=== PATIENT | female | born 1965 | race American Indian/Alaskan Native ===

== ENCOUNTER 2022-01-22 17:33 | Inpatient (IN) | payer SELFPAY ==
[2022-01-22] MEDS ORDERED: LORazepam 2 MG/ML VIAL ONE (18:16)
[2022-01-22] MEDS ORDERED: LORazepam 2 MG/ML VIAL IV ONE (18:47)
[2022-01-22] MEDS ORDERED: levETIRAcetam 1000 MG/NS 0.75% 1,000 MG/100 ML BAG IV ONE ×2 (18:55→20:57)
--- NOTE | 2022-01-22 19:43 | XRay Report ---
Chest single view INDICATION: Dyspnea IMPRESSION: Borderline cardiomegaly with patchy perihilar airspace opacity possibly related to early interstitial edema. Signer Name: Sourav Issa MD Signed: 01/22/2022 7:39 PM Workstation Name: [id number]
--- NOTE | 2022-01-22 19:44 | Cat Scan Report ---
CT HEAD WITHOUT CONTRAST INDICATION / CLINICAL INFORMATION: ams, new onset seizure. TECHNIQUE: All CT scans at this location are performed using CT dose reduction for ALARA by means of automated e xposure control. COMPARISON: None available. FINDINGS: HEMORRHAGE: A small focus of increased attenuation is observed along the posterior margin of the head of caudate nucleus on the right. This could represent calcification or small punctate focus of hemor rhage which measures less than 5 mm in diameter. There is no indication of extra-axial collection. EXTRA-AXIAL SPACES: Cortical sulci and sylvian fissures are mildly enlarged reflecting a degree of pa renchymal volume loss which is greater than expected for the patient's age of 56 years. Basilar ciste rns have an unremarkable appearance. VENTRICULAR SYSTEM: Small compression of the frontal horn of the right lateral ventricle. Ventricles and cortical sulci are otherwise at the upper limit of normal for size given the patient's age of 56 years. CEREBRAL PARENCHYMA: A low-attenuation lesion with hyperdense surround is present located just below head of caudate nucleus on the right. Overall size of the lesion is about 2.0 x 1.3 x 0.9 cm. This is associated with mild compression of the frontal horn of the right lateral ventricle. Considerations include brain neoplasm and abscess. Further evaluation to include MRI brain without and with intraven ous contrast is otherwise. Periventricular and deep white matter lucency is observed. This is probabl y secondary to microvascular ischemic change. There is no indication of recent infarction. No areas o f encephalomalacia are identified. MIDLINE SHIFT OR HERNIATION: There is no mass effect. CEREBELLUM / BRAINSTEM: Brainstem has an unremarkable appearance. Age related cerebellar atrophy is n oted. MIDLINE STRUCTURES:Pituitary gland has an unremarkable appearance. No abnormalities are seen in the p ineal region. INTRACRANIAL VESSELS:Calcified atherosclerotic plaque is present along the course of the cavernous se gments of both internal carotid arteries. Similar findings are seen at the distal vertebral arteries. CRANIOCERVICAL JUNCTION:No significant abnormality. ORBITS: visualized portions of the orbits have an unremarkable appearance. SOFT TISSUES of HEAD: No significant abnormality. CALVARIUM: Evaluation of bone windows reveals no abnormalities. PARANASAL SINUSES / MASTOID AIR CELLS: Paranasal sinuses are free from inflammatory mucosal disease. Mastoid air cells are normally pneumatized. IMPRESSION: 1. A low-attenuation lesion with hyperdense surround is present centered near the head of caudate nuc leus on the right. This produces mild mass effect with compression of the adjacent frontal horn of th e right lateral ventricle. Small amount of increased attenuation material at the posterior inferior m argin of the lesion may represent calcification or small amount of hemorrhage. Considerations include brain neoplasia and abscess. Further evaluation with MRI brain to be performed without and with intr avenous contrast material is advised. Signer Name: Dennys Grossman MD Signed: 01/22/2022 7:40 PM Workstation Name: [id number]
[2022-01-22 19:53] LABS: Basophils # (Auto) 0.1 K/mm3 (0.0-0.1); Basophils % (Auto) 0.7 % (0.0-1.8); Eosinophils # (Auto) 0.1 K/mm3 (0.0-0.4); Eosinophils % (Auto) 0.7 % (0.0-4.3); Hemoglobin 10.4 gm/dl (10.1-14.3); Lymphocytes % (Auto) 9.2 % (13.4-35.0); Mean Corpuscular HGB Conc 32 % (30-34); Mean Corpuscular Volume 81 fl (79-97); Monocytes # (Auto) 0.7 K/mm3 (0.0-0.8); Monocytes % (Auto) 6.5 % (0.0-7.3); Platelet Count 420 K/mm3 (140-440); Red Blood Count 4.09 M/mm3 (3.65-5.03); Red Cell Distribution Width 15.4 % (13.2-15.2)
[2022-01-22 20:01] LABS: INR 0.84 (0.87-1.13)
[2022-01-22] MEDS ORDERED: INSULIN REGULAR, HUMAN 100 UNITS/1 ML IV ONE (20:01)
[2022-01-22 20:02] LABS: Partial Thromboplastin Time 26.4 Sec. (24.2-36.6)
[2022-01-22 20:05] LABS: Alanine Aminotransferase 14 units/L (7-56); Albumin 3.1 g/dL (3.9-5); BUN/Creatinine Ratio 14; Blood Urea Nitrogen 15 mg/dL (7-17); Calcium 9.3 mg/dL (8.4-10.2); Hemolysis Index 5
[2022-01-22 20:17] LABS: Free T4 (Free Thyroxine) 1.32 ng/dL (0.76-1.46)
--- NOTE | 2022-01-22 20:18 | Emergency Department Report ---
ED Altered Mental Status HPI - General Chief Complaint: Altered Mental Status Stated Complaint: AMS Time Seen by Provider: 01/22/22 18:41 Source: patient, EMS Mode of arrival: Stretcher Limitations: Altered Mental Status, Physical Limitation - History of Present Illness Initial Comments: 56-year old female the past medical history of hypertension and diabetes presents to the hospital alteration mental status. Patient has a recent history of a left arm fracture. She has been assisted to the bathroom by her daughter when she became altered. EMS reports that patient was alert but confused. After ED arrival she had a witnessed seizure by staff and received Ativan 2 mg IV prior to my evaluation. At time of my evaluation she was drowsy and postict al but moves all extremities equally with sensation grossly intact. Accu-Chek high as per EMS. Stat CT head and labs requested. no previous medical record available for review. LEONARD MELTON [phone] DAUGTHER - Related Data Home Medications Medication Instructions Recorded Confirmed Last Taken amLODIPine 5 mg PO DAILY 01/23/22 01/23/22 01/22/22 metFORMIN [Glucophage] 500 mg PO BID 01/23/22 01/23/22 01/22/22 Allergies Allergy/AdvReac Type Severity Reaction Status Date / Time No Known Allergies Allergy Verified 01/22/22 17:47 ED Review of Systems ROS: Stated complaint: AMS Other details as noted in HPI ED Past Medical Hx - Medications Home Medications: Home Medications Medication Instructions Recorded Confirmed Last Taken Type amLODIPine 5 mg PO DAILY 01/23/22 01/23/22 01/22/22 History metFORMIN [Glucophage] 500 mg PO BID 01/23/22 01/23/22 01/22/22 History ED Physical Exam - General Limitations: Altered Mental Status, Physical Limitation - Other Other exam information: General: Lethargic Head: Atraumatic Eyes: Pupils equal reactive to ENT: Moist mucous membranes Neck: Normal appearance, no midline tenderness Chest: Clear to auscultation bilaterally CV: Regular rate and rhythm Abdomen: Soft, normal bowel sounds, nontender, nondistended, no rebound or g uarding Back: Normal inspection Extremity: Normal inspection, full range of motion Neuro: Lethargic, no facial asymmetry, sensation grossly intact with localization of pain Psych: Postictal received Ativan Skin: No rash ED Course Vital Signs 01/22/22 01/22/22 01/22/22 17:33 19:30 19:46 Temperature 97.9 F Pulse Rate 120 H 107 H 105 H Respiratory 18 15 19 Rate Blood Pressure 148/79 Blood Pressure 190/100 187/86 [Right] O2 Sat by Pulse 98 95 87 Oximetry 01/22/22 01/22/22 01/22/22 20:00 20:16 20:30 Temperature Pulse Rate 98 H 93 H 91 H Respiratory 22 22 21 Rate Blood Pressure 148/79 135/71 135/71 Blood Pressure [Right] O2 Sat by Pulse 90 93 94 Oximetry 01/22/22 01/22/22 01/22/22 20:46 20:50 21:00 Temperature 96.4 F L Pulse Rate 108 H 111 H Respiratory 14 22 Rate Blood Pressure 107/65 159/91 Blood Pressure [Right] O2 Sat by Pulse 98 97 Oximetry 01/22/22 01/22/22 01/22/22 22:02 22:16 22:30 Temperature Pulse Rate Respiratory Rate Blood Pressure 184/104 184/104 175/97 Blood Pressure [Right] O2 Sat by Pulse 96 96 98 Oximetry 01/22/22 01/22/22 01/22/22 22:46 23:00 23:16 Temperature Pulse Rate Respiratory Rate Blood Pressure 173/92 172/83 171/84 Blood Pressure [Right] O2 Sat by Pulse 100 97 99 Oximetry 01/22/22 01/23/22 01/23/22 23:30 00:16 00:30 Temperature Pulse Rate 94 H 88 Respiratory 18 18 Rate Blood Pressure 167/80 162/86 162/86 Blood Pressure [Right] O2 Sat by Pulse 96 97 Oximetry 01/23/22 01/23/22 01/23/22 00:46 01:00 01:16 Temperature Pulse Rate 84 85 97 H Respiratory 18 18 21 Rate Blood Pressure 137/74 137/74 153/78 Blood Pressure [Right] O2 Sat by Pulse 96 96 100 Oximetry 01/23/22 01/23/22 01/23/22 01:30 01:46 02:00 Temperature Pulse Rate 103 H 99 H 103 H Respiratory 16 13 15 Rate Blood Pressure 168/109 168/109 168/109 Blood Pressure [Right] O2 Sat by Pulse 99 98 99 Oximetry - Reevaluation(s) Reevaluation #1: 01/22/22 21:55 called daughter no response 01/22/22 22:00 Patient reexamined. She is drowsy, eyes closed, low-volume while communicating and somewhat difficult to understand. Equal handgrip and foot dorsiflexion. Oriented to self. Does not know how she got to the ED. States the year is 1964. Complains of pain to her left arm (x-rays ordered) - Consultations Consultation #1: 01/22/22 20:[address] Dumont neurosurgery who advises to transfer patient based on CT report Between 21:11 and 20:11 the following facilities were called [facility], [place],[facility], and [facility] and all of these hospitals were at capacity and able to accept the patient Case we discussed with Dr. Dumont and he reviewed the CAT scan imaging himself. Suspect that findings could be likely secondary to a stroke. Advises to admit patient here, he will consult, recommends neurology consult and MRI in the morning 01/22/22 22:47 Case discussed with neurology Dr. Cabrera (teleneurology) who does not recommend Decadron at this time due to minimal edema seen on CT scan. Recommends to continue Keppra 750 mg twice daily and MRI to further differentiate lesion - Lab Data Result diagrams: 01/24/22 04:36 01/24/22 04:36 Lab Results 01/22/22 01/22/22 01/22/22 Range/Units 19:28 19:28 19:28 WBC 10.6 (4.5-11.0) K/mm3 RBC 4.09 (3.65-5.03) M/mm3 Hgb 10.4 (10.1-14.3) gm/dl Hct 33.0 (30.3-42.9) % MCV 81 (79-97) fl MCH 25 L (28-32) pg MCHC 32 (30-34) % RDW 15.4 H (13.2-15.2) % Plt Count 420 (140-440) K/mm3 Lymph % (Auto) 9.2 L (13.4-35.0) % Falls % (Auto) 6.5 (0.0-7.3) % Eos % (Auto) 0.7 (0.0-4.3) % Baso % (Auto) 0.7 (0.0-1.8) % Lymph # (Auto) 1.0 L (1.2-5.4) K/mm3 Falls # (Auto) 0.7 (0.0-0.8) K/mm3 Eos # (Auto) 0.1 (0.0-0.4) K/mm3 Baso # (Auto) 0.1 (0.0-0.1) K/mm3 Seg Neutrophils % 82.9 H (40.0-70.0) % Seg Neutrophils # 8.8 H (1.8-7.7) K/mm3 PT (12.2-14.9) Sec. INR (0.87-1.13) APTT (24.2-36.6) Sec. VBG pH (7.320-7.420) Sodium 131 L (137-145) mmol/L Potassium 4.6 (3.6-5.0) mmol/L Chloride 91.8 L (98-107) mmol/L Carbon Dioxide 29 (22-30) mmol/L Anion Gap 15 mmol/L BUN 15 (7-17) mg/dL Creatinine 1.1 (0.6-1.2) mg/dL Estimated GFR > 60 ml/min BUN/Creatinine Ratio 14 % Glucose 581 H* (65-100) mg/dL POC Glucose (70-105) mg/dL Calcium 9.3 (8.4-10.2) mg/dL Magnesium 1.40 L (1.7-2.3) mg/dL Total Bilirubin 0.30 (0.1-1.2) mg/dL AST 15 (5-40) units/L ALT 14 (7-56) units/L Alkaline Phosphatase 197 H (35-129) units/L Ammonia 17.0 L (25-60) umol/L Total Creatine Kinase (30-135) units/L CK-MB (CK-2) (0.0-4.0) ng/mL CK-MB (CK-2) Rel Index (0-4) Troponin T (0.00-0.029) ng/mL Total Protein 7.4 (6.3-8.2) g/dL Albumin 3.1 L (3.9-5) g/dL Albumin/Globulin Ratio 0.7 % TSH (0.270-4.200) mlU/mL Free T4 (0.76-1.46) ng/dL Salicylates (2.8-20.0) mg/dL Plasma/Serum Alcohol (0-0.07) % Blood Type Antibody Screen 01/22/22 01/22/22 01/22/22 Range/Units 19:28 19:28 19:28 WBC (4.5-11.0) K/mm3 RBC (3.65-5.03) M/mm3 Hgb (10.1-14.3) gm/dl Hct (30.3-42.9) % MCV (79-97) fl MCH (28-32) pg MCHC (30-34) % RDW (13.2-15.2) % Plt Count (140-440) K/mm3 Lymph % (Auto) (13.4-35.0) % Falls % (Auto) (0.0-7.3) % Eos % (Auto) (0.0-4.3) % Baso % (Auto) (0.0-1.8) % Lymph # (Auto) (1.2-5.4) K/mm3 Falls # (Auto) (0.0-0.8) K/mm3 Eos # (Auto) (0.0-0.4) K/mm3 Baso # (Auto) (0.0-0.1) K/mm3 Seg Neutrophils % (40.0-70.0) % Seg Neutrophils # (1.8-7.7) K/mm3 PT (12.2-14.9) Sec. INR (0.87-1.13) APTT (24.2-36.6) Sec. VBG pH (7.320-7.420) Sodium (137-145) mmol/L Potassium (3.6-5.0) mmol/L Chloride (98-107) mmol/L Carbon Dioxide (22-30) mmol/L Anion Gap mmol/L BUN (7-17) mg/dL Creatinine (0.6-1.2) mg/dL Estimated GFR ml/min BUN/Creatinine Ratio % Glucose (65-100) mg/dL POC Glucose (70-105) mg/dL Calcium (8.4-10.2) mg/dL Magnesium (1.7-2.3) mg/dL Total Bilirubin (0.1-1.2) mg/dL AST (5-40) units/L ALT (7-56) units/L Alkaline Phosphatase (35-129) units/L Ammonia (25-60) umol/L Total Creatine Kinase (30-135) units/L CK-MB (CK-2) (0.0-4.0) ng/mL CK-MB (CK-2) Rel Index (0-4) Troponin T (0.00-0.029) ng/mL Total Protein (6.3-8.2) g/dL Albumin (3.9-5) g/dL Albumin/Globulin Ratio % TSH 1.460 (0.270-4.200) mlU/mL Free T4 1.32 (0.76-1.46) ng/dL Salicylates < 0.3 L (2.8-20.0) mg/dL Plasma/Serum Alcohol < 0.01 (0-0.07) % Blood Type Antibody Screen 01/22/22 01/22/22 01/22/22 Range/Units 19:28 19:28 19:28 WBC (4.5-11.0) K/mm3 RBC (3.65-5.03) M/mm3 Hgb (10.1-14.3) gm/dl Hct (30.3-42.9) % MCV (79-97) fl MCH (28-32) pg MCHC (30-34) % RDW (13.2-15.2) % Plt Count (140-440) K/mm3 Lymph % (Auto) (13.4-35.0) % Falls % (Auto) (0.0-7.3) % Eos % (Auto) (0.0-4.3) % Baso % (Auto) (0.0-1.8) % Lymph # (Auto) (1.2-5.4) K/mm3 Falls # (Auto) (0.0-0.8) K/mm3 Eos # (Auto) (0.0-0.4) K/mm3 Baso # (Auto) (0.0-0.1) K/mm3 Seg Neutrophils % (40.0-70.0) % Seg Neutrophils # (1.8-7.7) K/mm3 PT 12.4 (12.2-14.9) Sec. INR 0.84 L (0.87-1.13) APTT 26.4 (24.2-36.6) Sec. VBG pH 7.398 (7.320-7.420) Sodium (137-145) mmol/L Potassium (3.6-5.0) mmol/L Chloride (98-107) mmol/L Carbon Dioxide (22-30) mmol/L Anion Gap mmol/L BUN (7-17) mg/dL Creatinine (0.6-1.2) mg/dL Estimated GFR ml/min BUN/Creatinine Ratio % Glucose (65-100) mg/dL POC Glucose (70-105) mg/dL Calcium (8.4-10.2) mg/dL Magnesium (1.7-2.3) mg/dL Total Bilirubin (0.1-1.2) mg/dL AST (5-40) units/L ALT (7-56) units/L Alkaline Phosphatase (35-129) units/L Ammonia (25-60) umol/L Total Creatine Kinase (30-135) units/L CK-MB (CK-2) (0.0-4.0) ng/mL CK-MB (CK-2) Rel Index (0-4) Troponin T (0.00-0.029) ng/mL Total Protein (6.3-8.2) g/dL Albumin (3.9-5) g/dL Albumin/Globulin Ratio % TSH (0.270-4.200) mlU/mL Free T4 (0.76-1.46) ng/dL Salicylates (2.8-20.0) mg/dL Plasma/Serum Alcohol (0-0.07) % Blood Type O POSITIVE Antibody Screen Negative 01/22/22 01/22/22 Range/Units 19:28 19:59 WBC (4.5-11.0) K/mm3 RBC (3.65-5.03) M/mm3 Hgb (10.1-14.3) gm/dl Hct (30.3-42.9) % MCV (79-97) fl MCH (28-32) pg MCHC (30-34) % RDW (13.2-15.2) % Plt Count (140-440) K/mm3 Lymph % (Auto) (13.4-35.0) % Falls % (Auto) (0.0-7.3) % Eos % (Auto) (0.0-4.3) % Baso % (Auto) (0.0-1.8) % Lymph # (Auto) (1.2-5.4) K/mm3 Falls # (Auto) (0.0-0.8) K/mm3 Eos # (Auto) (0.0-0.4) K/mm3 Baso # (Auto) (0.0-0.1) K/mm3 Seg Neutrophils % (40.0-70.0) % Seg Neutrophils # (1.8-7.7) K/mm3 PT (12.2-14.9) Sec. INR (0.87-1.13) APTT (24.2-36.6) Sec. VBG pH (7.320-7.420) Sodium (137-145) mmol/L Potassium (3.6-5.0) mmol/L Chloride (98-107) mmol/L Carbon Dioxide (22-30) mmol/L Anion Gap mmol/L BUN (7-17) mg/dL Creatinine (0.6-1.2) mg/dL Estimated GFR ml/min BUN/Creatinine Ratio % Glucose (65-100) mg/dL POC Glucose 466 H (70-105) mg/dL Calcium (8.4-10.2) mg/dL Magnesium (1.7-2.3) mg/dL Total Bilirubin (0.1-1.2) mg/dL AST (5-40) units/L ALT (7-56) units/L Alkaline Phosphatase (35-129) units/L Ammonia (25-60) umol/L Total Creatine Kinase 109 (30-135) units/L CK-MB (CK-2) 4.9 H (0.0-4.0) ng/mL CK-MB (CK-2) Rel Index 4.4 H (0-4) Troponin T 0.020 (0.00-0.029) ng/mL Total Protein (6.3-8.2) g/dL Albumin (3.9-5) g/dL Albumin/Globulin Ratio % TSH (0.270-4.200) mlU/mL Free T4 (0.76-1.46) ng/dL Salicylates (2.8-20.0) mg/dL Plasma/Serum Alcohol (0-0.07) % Blood Type Antibody Screen - EKG Data -: EKG Interpreted by Me EKG shows normal: sinus rhythm, ST-T waves Rate: normal - Radiology Data Radiology results: report reviewed CT HEAD WITHOUT CONTRAST INDICATION / CLINICAL INFORMATION: ams, new onset seizure. TECHNIQUE: All CT scans at this location are performed using CT dose reduction for ALARA by means of automated exposure control. COMPARISON: None available. FINDINGS: HEMORRHAGE: A small focus of increased attenuation is observed along the posterior margin of the head of caudate nucleus on the right. This could represent calcification or small punctate focus of hemorrhage which measures less than 5 mm in diameter. There is no indication of extra-axial collection. EXTRA-AXIAL SPACES: Cortical sulci and sylvian fissures are mildly enlarged ref lecting a degree of parenchymal volume loss which is greater than expected for the patient's age of 56 years. Basilar cisterns have an unremarkable appearance. VENTRICULAR SYSTEM: Small compression of the frontal horn of the right lateral ventricle. Ventricles and cortical sulci are otherwise at the upper limit of normal for size given the patient's age of 56 years. CEREBRAL PARENCHYMA: A low-attenuation lesion with hyperdense surround is present located just below head of caudate nucleus on the right. Overall size of the lesion is about 2.0 x 1.3 x 0.9 cm. This is associated with mild compression of the frontal horn of the right lateral ventricle. Considerations include brain neoplasm and abscess. Further evaluation to include MRI brain without and with intravenous contrast is otherwise. Periventricular and deep white matter lucency is observed. This is probably secondary to microvascular ischemic change. There is no indication of recent infarction. No areas of encephalomalacia are identified. MIDLINE SHIFT OR HERNIATION: There is no mass effect. CEREBELLUM / BRAINSTEM: Brainstem has an unremarkable appearance. Age related cerebellar atrophy is noted. MIDLINE STRUCTURES:Pituitary gland has an unremarkable appearance. No abnormalities are seen in the pineal region. INTRACRANIAL VESSELS:Calcified atherosclerotic plaque is present along the course of the cavernous segments of both internal carotid arteries. Similar findings are seen at the distal vertebral arteries. CRANIOCERVICAL JUNCTION:No significant abnormality. ORBITS: visualized portions of the orbits have an unremarkable appearance. SOFT TISSUES of HEAD: No significant abnormality. CALVARIUM: Evaluation of bone windows reveals no abnormalities. PARANASAL SINUSES / MASTOID AIR CELLS: Paranasal sinuses are free from inflammatory mucosal disease. Mastoid air cells are normally pneumatized. IMPRESSION: 1. A low-attenuation lesion with hyperdense surround is present centered near the head of caudate nucleus on the right. This produces mild mass effect with compression of the adjacent frontal horn of the right lateral ventricle. Small amount of increased attenuation material at the posterior inferior margin of the lesion may represent calcification or small amount of hemorrhage. Considerations include brain neoplasia and abscess. Further evaluation with MRI brain to be performed without and with intravenous contrast material is advised. Chest single view INDICATION: Dyspnea IMPRESSION: Borderline cardiomegaly with patchy perihilar airspace opacity possibly related to early interstitial edema. - Medical Decision Making 56-year-old female with alteration mental status and was a seizure who has a newly diagnosed brain lesion with findings as noted by CAT scan report. Case discussed with neurosurgery who recommends MRI and neurology consult. Patient also treated with seizure medication. Case also discussed with teleneurology who recommends to continue Keppra 750 mg twice daily. Decadron is not recommended at this time due to very minimal edema noted on CT scan. patient has hyperglycemia without signs of DKA was treated with IV insulin and normal saline. X-ray reveals a left proximal humerus fracture. Sling provide Critical Care Time: Yes Critical care time in (mins) excluding proc time.: 40 Critical care attestation.: If time is entered above; I have spent that time in minutes in the direct care of this critically ill patient, excluding procedure time. Critical Care Time: 40 Minutes of critical care time excluding procedures were used in the care of the patient. I came immediately to the bedside upon patient's arrival. I obtained history from EMS at the bedside. I discussed treatment plan with the nursing team members. I reviewed electronic record. Patient required multiple interventions and reassessments. Multiple consultations with attempted transfer. ED Disposition Clinical Impression: Altered mental status, Brain lesion, New onset seizure, Hyperglycemia due to diabetes mellitus Closed fracture of left proximal humerus Qualifiers: Encounter type: subsequent encounter Disposition: ADMITTED INPATIENT Is pt being admited?: Yes Condition: Stable Time of Disposition: 22:49 (Dr. Ontiveros/hospitalist)
[2022-01-22 20:50] LABS: Creatine Kinase MB 4.9 ng/mL (0.0-4.0)
[2022-01-22] MEDS ORDERED: MAGNESIUM SULFATE 2 GM/50 ML BAG IV ONE (21:21)
--- NOTE | 2022-01-22 22:46 | XRay Report ---
LEFT FOREARM 2 VIEWS INDICATION / CLINICAL INFORMATION: arm pain recent fracture. COMPARISON: None available. FINDINGS: BONES / JOINT(S): Negative for fracture. The ulna is posteriorly displaced. It is uncertain if this i s due to positioning or a real finding. Clinical correlation is recommended. No significant arthritis . SOFT TISSUES: No significant abnormality. ADDITIONAL FINDINGS: None. Signer Name: Mario Jimenez MD Signed: 01/22/2022 10:42 PM Workstation Name: [id number]
--- NOTE | 2022-01-22 22:47 | XRay Report ---
RIGHT HUMERUS 2 VIEWS INDICATION / CLINICAL INFORMATION: arm pain recent fracture. COMPARISON: None available. FINDINGS: BONES / JOINT(S): Mildly comminuted/impacted humeral neck fracture. The mid and distal humerus are in tact. The articular surface of the humeral head and glenoid demonstrate no fracture. SOFT TISSUES: No significant abnormality. ADDITIONAL FINDINGS: None. Signer Name: Mario Jimenez MD Signed: 01/22/2022 10:43 PM Workstation Name: [id number]
--- NOTE | 2022-01-22 22:49 | Consultation ---
History of Present Illness History of present illness: [facility] Consult Note # Demographics Consult Type: General Neurology Patient Location: Emergency Room First Name: Patricia Last Name: John Date of : 1965 Age: 56 Gender: Female Facility: [facility] Time of Initial Page ( Time): 01/22/2022, 22:40 Time of Return Call ( Time): 01/22/2022, 22:40 Phone Only Consult: 56F with DM, recent humerus fracture presented with AMS, noted to have seizure in ED. CT head done, which showed a right caudate nucleus lesion concerning for possible hemorrhage vs mass. Given 2g levetiracetam. Fingerstick 581. Weighs 81kg. Minimal edema surrounding lesion. Would continue levetiracetam 750mg BID, no role for steroids at this time. Admit for MRI brain w/wo contrast and further work-up and management as per in-house neurology and neurosurgery teams. # [employer] Telemedicine: phone only Electronically signed at 01/22/2022 22:48 ( Time) by Rick Schwarz MD Medications and Allergies Allergies Allergy/AdvReac Type Severity Reaction Status Date / Time No Known Allergies Allergy Verified 01/22/22 17:47 Physical Examination - Vital Signs Vital Signs: Vital Signs Pulse Resp BP Pulse Ox 120 H 18 190/100 98 01/22/22 17:33 01/22/22 17:33 01/22/22 17:33 01/22/22 17:33 Results - Laboratory Findings CBC and BMP: 01/22/22 19:28 01/22/22 19:28 Abnormal Lab Findings: Abnormal Labs 01/22/22 01/22/22 01/22/22 19:28 19:28 19:28 MCH 25 L RDW 15.4 H Lymph % (Auto) 9.2 L Lymph # (Auto) 1.0 L Seg Neutrophils % 82.9 H Seg Neutrophils # 8.8 H INR Sodium 131 L Chloride 91.8 L Glucose 581 H* POC Glucose Magnesium 1.40 L Alkaline Phosphatase 197 H Ammonia 17.0 L CK-MB (CK-2) CK-MB (CK-2) Rel Index Albumin 3.1 L Salicylates 01/22/22 01/22/22 01/22/22 19:28 19:28 19:28 MCH RDW Lymph % (Auto) Lymph # (Auto) Seg Neutrophils % Seg Neutrophils # INR 0.84 L Sodium Chloride Glucose POC Glucose Magnesium Alkaline Phosphatase Ammonia CK-MB (CK-2) 4.9 H CK-MB (CK-2) Rel Index 4.4 H Albumin Salicylates < 0.3 L 01/22/22 19:59 MCH RDW Lymph % (Auto) Lymph # (Auto) Seg Neutrophils % Seg Neutrophils # INR Sodium Chloride Glucose POC Glucose 466 H Magnesium Alkaline Phosphatase Ammonia CK-MB (CK-2) CK-MB (CK-2) Rel Index Albumin Salicylates
[2022-01-22] MEDS ORDERED: SODIUM CHLORIDE 0.9% 1000 ML 1,000 ML IV SCH (23:45)
[2022-01-22] MEDS ORDERED: ALBUTEROL 2.5 MG/3 ML NEBU IH PRN (23:54)
[2022-01-22] MEDS ORDERED: DEXTROSE 50% IN WATER (25GM) 50 ML SYRINGE IV PRN (23:56)
--- NOTE | 2022-01-23 00:03 | History and Physical Report ---
History of Present Illness Date of examination: 01/22/22 Date of admission: 01/22/22 Chief complaint: Altered mental status History of present illness: 56-year old female the past medical history of hypertension and diabetes presents to the hospital alteration mental status. Patient has a recent history of a left arm fracture. She has been assisted to the bathroom by her daughter when she became altered. EMS reports that patient was alert but confused. After ED arrival she had a witnessed seizure by staff and received Ativan 2 mg IV prior to my evaluation. At time of my evaluation she was drowsy and postictal but moves all extremities equally with sensation grossly intact. In the emergency room patient glucose is 589. CT scan of the head shows A low- attenuation lesion with hyperdense surround is present centered near the head of caudate nucleus on the right. This produces mild mass effect with compression of the adjacent frontal horn of the right lateral ventricle. Small amount of increased attenuation material at the posterior inferior margin of the lesion may represent calcification or small amount of hemorrhage. Considerations include brain neoplasia and abscess. Further evaluation with MRI brain to be performed without and with intravenous contrast material is advised. 01/22/22 20:[address] Dumont neurosurgery who advises to transfer patient based on CT report Between 21:11 and 20:11 the following facilities were called [facility], [place],[facility], [facility], and [facility] and all of these hospitals were at capacity and able to accept the patient Case we discussed with Dr. Dumont and he reviewed the CAT scan imaging himself. Suspect that findings could be likely secondary to a stroke. Advises to admit patient here, he will consult, recommends neurology consult and MRI in the morning 01/22/22 22:47 Case discussed with neurology Dr. Cabrera ([email or web address]) who does not recommend Decadron at this time due to minimal edema seen on CT scan. Recommends to continue Keppra 750 mg twice daily and MRI to further differentiate lesion Past History Past Medical History: diabetes, hypertension Past Surgical History: Other (Left arm fracture) Social history: no significant social history Family history: hypertension Medications and Allergies Allergies Allergy/AdvReac Type Severity Reaction Status Date / Time No Known Allergies Allergy Verified 01/22/22 17:47 Active Meds: Active Medications Acetaminophen (Acetaminophen 325 Mg Tab) 650 mg PO Q4H PRN PRN Reason: Pain MILD(1-3)/Fever >100.5/VANEGAS Albuterol (Albuterol 2.5 Mg/3 Ml Nebu) 2.5 mg IH Q3HRT PRN PRN Reason: Shortness Of Breath Albuterol/Ipratropium (Ipratropium/Albuterol Sulfate 3 Ml Ampul.Neb) 1 ampul IH Q6HRT FABIO Atorvastatin Calcium (Atorvastatin 40 Mg Tab) 40 mg PO QHS FABIO Dextrose (Dextrose 50% In Water (25gm) 50 Ml Syringe) 50 ml IV Q30MIN PRN; Protocol PRN Reason: Hypoglycemia Famotidine (Famotidine 20 Mg/2 Ml Inj) 20 mg IV BID [facility] Sodium Chloride (Nacl 0.9% 1000 Ml) 1,000 mls @ 100 mls/hr IV DIRECT FABIO Insulin Human Lispro (Insulin Lispro 100 Unit/Ml) 0 unit SUB-Q Q6HR FABIO; Protocol Labetalol HCl (Labetalol 20 Mg/4 Ml Inj) 10 mg IV Q5MIN PRN PRN Reason: to maintain SBP < 180 Morphine Sulfate (Morphine 2 Mg/1 Ml Inj) 2 mg IV Q4H PRN PRN Reason: Pain, Moderate (4-6) Morphine Sulfate (Morphine 4 Mg/1 Ml Inj) 4 mg IV Q4H PRN PRN Reason: Pain , Severe (7-10) Ondansetron HCl (Ondansetron 4 Mg/2 Ml Inj) 4 mg IV Q8H PRN PRN Reason: Nausea And Vomiting Sodium Chloride (Sodium Chloride 0.9% 10 Ml Flush Syringe) 10 ml IV BID FABIO Sodium Chloride (Sodium Chloride 0.9% 10 Ml Flush Syringe) 10 ml IV PRN PRN PRN Reason: LINE FLUSH Sodium Chloride (Sodium Chloride 0.9% 10 Ml Flush Syringe) 10 ml INJ PRN PRN PRN Reason: LINE FLUSH Review of Systems Constitutional: fatigue, weakness, malaise, lethargy, other (Altered mental status) Exam - Constitutional Vitals: Temp Pulse Resp BP Pulse Ox 96.4 F L 107 H 15 187/86 95 01/22/22 20:50 01/22/22 19:30 01/22/22 19:30 01/22/22 19:30 01/22/22 19:30 General appearance: Present: no acute distress, well-nourished - EENT Eyes: Present: PERRL ENT: hearing intact, clear oral mucosa - Neck Neck: Present: supple, normal ROM - Respiratory Respiratory effort: normal Respiratory: bilateral: diminished - Cardiovascular Heart Sounds: Present: S1 & S2. Absent: rub, click - Extremities Extremities: pulses symmetrical, No edema Peripheral Pulses: within normal limits - Abdominal General gastrointestinal: Present: soft, non-tender, non-distended, normal bowel sounds Female genitourinary: Present: normal - Integumentary Integumentary: Present: clear, warm, dry - Musculoskeletal Musculoskeletal: gait normal, strength equal bilaterally - Psychiatric Psychiatric: other (Altered mental status) - Neurologic Neurologic: CNII-XII intact, moves all extremities HEART Score - HEART Score Troponin: Troponin T 0.020 ng/mL (0.00-0.029) 01/22/22 19:28 Results - Labs CBC & Chem 7: 01/22/22 19:28 01/22/22 19:28 Labs: Laboratory Last Values WBC 10.6 K/mm3 (4.5-11.0) 01/22/22 19: RBC 4.09 M/mm3 (3.65-5.03) 01/22/22 19:28 Hgb 10.4 gm/dl (10.1-14.3) 01/22/22 19: Hct 33.0 % (30.3-42.9) 01/22/22 19:28 MCV 81 fl (79-97) 01/22/22 19: MCH 25 pg (28-32) L 01/22/22 19: MCHC 32 % (30-34) 01/22/22 19:28 RDW 15.4 % (13.2-15.2) H 01/22/22 19:28 Plt Count 420 K/mm3 (140-440) 01/22/22 19: Lymph % (Auto) 9.2 % (13.4-35.0) L 01/22/22 19:28 Hanson % (Auto) 6.5 % (0.0-7.3) 01/22/22 19: Eos % (Auto) 0.7 % (0.0-4.3) 01/22/22 19:28 Baso % (Auto) 0.7 % (0.0-1.8) 01/22/22 19:28 Lymph # (Auto) 1.0 K/mm3 (1.2-5.4) L 01/22/22 19:28 Hanson # (Auto) 0.7 K/mm3 (0.0-0.8) 01/22/22 19:28 Eos # (Auto) 0.1 K/mm3 (0.0-0.4) 01/22/22 19:28 Baso # (Auto) 0.1 K/mm3 (0.0-0.1) 01/22/22 19:28 Seg Neutrophils % 82.9 % (40.0-70.0) H 01/22/22 19: Seg Neutrophils # 8.8 K/mm3 (1.8-7.7) H 01/22/22 19:28 PT 12.4 Sec. (12.2-14.9) 01/22/22 19: INR 0.84 (0.87-1.13) L 01/22/22 19:28 APTT 26.4 Sec. (24.2-36.6) 01/22/22 19:28 VBG pH 7.398 (7.320-7.420) 01/22/22 19:28 Sodium 131 mmol/L (137-145) L 01/22/22 19:28 Potassium 4.6 mmol/L (3.6-5.0) 01/22/22 19:28 Chloride 91.8 mmol/L (98-107) L 01/22/22 19:28 Carbon Dioxide 29 mmol/L (22-30) 01/22/22 19:28 Anion Gap 15 mmol/L 01/22/22 19:28 BUN 15 mg/dL (7-17) 01/22/22 19:28 Creatinine 1.1 mg/dL (0.6-1.2) 01/22/22 19:28 Estimated GFR > 60 ml/min 01/22/22 19:28 BUN/Creatinine Ratio 14 % 01/22/22 19:28 Glucose 581 mg/dL (65-100) H* 01/22/22 19:28 POC Glucose 466 mg/dL (70-105) H 01/22/22 19:59 Calcium 9.3 mg/dL (8.4-10.2) 01/22/22 19: Magnesium 1.40 mg/dL (1.7-2.3) L 01/22/22 19: Total Bilirubin 0.30 mg/dL (0.1-1.2) 01/22/22 19: AST 15 units/L (5-40) 01/22/22 19: ALT 14 units/L (7-56) 01/22/22 19: Alkaline Phosphatase 197 units/L (35-129) H 01/22/22 19: Ammonia 17.0 umol/L (25-60) L 01/22/22 19: Total Creatine Kinase 109 units/L (30-135) 01/22/22 19: CK-MB (CK-2) 4.9 ng/mL (0.0-4.0) H 01/22/22 19: CK-MB (CK-2) Rel Index 4.4 (0-4) H 01/22/22: Troponin T 0.020 ng/mL (0.00-0.029) 01/22/22 19: Total Protein 7.4 g/dL (6.3-8.2) 01/22/22: Albumin 3.1 g/dL (3.9-5) L 01/22/22: Albumin/Globulin Ratio 0.7 % 01/22/22: TSH 1.460 mlU/mL (0.270-4.200) 01/22/22: Free T4 1.32 ng/dL (0.76-1.46) 01/22/22: Salicylates < 0.3 mg/dL (2.8-20.0) L 01/22/22: Plasma/Serum Alcohol < 0.01 % (0-0.07) 01/22/22: Blood Type O POSITIVE 01/22/22: Antibody Screen Negative 01/22/22: - Imaging and Cardiology Chest x-ray: report reviewed CT Scan - head: report reviewed Assessment and Plan VTE prophylaxis?: Mechanical Plan of care discussed with patient/family: Yes - Patient Problems (1) Acute metabolic encephalopathy Current Visit: Yes Status: Acute Plan to address problem: Admit the patient to the medical telemetry. Metabolic encephalopathy secondary to hyperglycemia and brain lesion. We will do MRI of the brain and MRA of the brain and neck with and without contrast. We will consult neurosurgery as well as neurology for evaluation. Lipitor 40 mg p.o. daily. Keppra 750 mg IV bid. (2) Brain lesion Current Visit: Yes Status: Acute Plan to address problem: We will do MRI of the brain and MRA of the brain and neck with and without contrast. We will consult neurosurgery as well as neurology for evaluation. Lipitor 40 mg p.o. daily. Keppra 750 mg IV bid. (3) Closed fracture of left proximal humerus Current Visit: Yes Status: Acute Qualifiers: Encounter type: subsequent encounter Plan to address problem: Stable. We will monitor the patient closely outpatient follow-up with orthopedic surgeon (4) Hyperglycemia due to diabetes mellitus Current Visit: Yes Status: Acute Plan to address problem: Accu-Chek every 6 hours with Humalog high-dose coverage. We also consult diabetic education. Recheck BMP in the morning (5) New onset seizure Current Visit: Yes Status: Acute Plan to address problem: We will do MRI of the brain and MRA of the brain and neck with and without contrast. We will consult neurosurgery as well as neurology for evaluation. Lipitor 40 mg p.o. daily. Keppra 750 mg IV bid. (6) DVT prophylaxis Current Visit: Yes Status: Acute Plan to address problem: SCD for DVT prophylaxis. Pepcid 20 mg IV every 12 hours for GI prophylaxis. Patient is a full code
[2022-01-23] MEDS: INSULIN LISPRO 100 UNIT/ML SUB-Q SCH ×4 (00:59→17:44)
[2022-01-23] MEDS ORDERED: IPRATROPIUM/ALBUTEROL SULFATE 3 ML AMPUL.NEB IH SCH (02:00)
[2022-01-23 05:28] LABS: Basophils % (Auto) 0.4 % (0.0-1.8); Eosinophils # (Auto) 0.1 K/mm3 (0.0-0.4); Eosinophils % (Auto) 0.5 % (0.0-4.3); Hematocrit 28.8 % (30.3-42.9); Hemoglobin 9.1 gm/dl (10.1-14.3); Lymphocytes # (Auto) 1.5 K/mm3 (1.2-5.4); Lymphocytes % (Auto) 14.1 % (13.4-35.0); Mean Corpuscular HGB Conc 32 % (30-34); Mean Corpuscular Volume 79 fl (79-97); Monocytes # (Auto) 1.2 K/mm3 (0.0-0.8); Monocytes % (Auto) 10.9 % (0.0-7.3); Platelet Count 377 K/mm3 (140-440); Red Blood Count 3.64 M/mm3 (3.65-5.03)
[2022-01-23 05:43] LABS: BUN/Creatinine Ratio 14; Blood Urea Nitrogen 13 mg/dL (7-17); Calcium 8.6 mg/dL (8.4-10.2); Chol/HDL Ratio 1.85 %; HDL Cholesterol 75 mg/dL (40-59); Hemolysis Index 1; LDL Cholesterol,Direct 68 mg/dL (50-130)
--- NOTE | 2022-01-23 09:18 | Electrocardiograph Report ---
[facility] Test Date: 2022-01-22 Test Time: 20:52:34 Pat Name: SIDDHARTH MELTON Department: Room: A460 1 Gender: F Transferrer: CHELE : 1965 Requested By: NOHEMI MIRANDA Order Number: [id number] Reading MD: Gregory Jordan Measurements Intervals [place] Rate: 111 P: 61 NH: 163 QRS: -25 QRSD: 91 T: 94 QT: 317 QTc: 431 Interpretive Statements Sinus tachycardia LVH with secondary repolarization abnormality No previous ECG available for comparison Electronically Signed On 01-23-2022 9:18:17 EDT by Gregory Jordan
[2022-01-23] MEDS: LORazepam 2 MG/ML VIAL IV PRN (09:58)
[2022-01-23] MEDS: FAMOTIDINE 20 MG/2 ML INJ IV SCH ×2 (11:24→23:44)
--- NOTE | 2022-01-23 13:42 | Progress Note ---
Subjective Date of service: 01/23/22 Interval history: NSGY update: CT head reviewed, demonstrates right caudate lesion causing mild compression of the frontal horn of the right lateral ventricle. Recommend MRI brain with and without contrast for further evaluation. Please start keppra 1000 mg BID for seizure treatment. Please maintain normotension. Further recommendations pending CT review. Please notify if questions/concerns. Objective - Vital Sign Vital Signs - 12hr 01/23/22 01/23/22 01/23/22 01:46 02:00 03:00 Temperature 97.7 F Pulse Rate 99 H 103 H 89 Respiratory 13 15 16 Rate Blood Pressure 168/109 168/109 136/74 Blood Pressure [Right] O2 Sat by Pulse 98 99 100 Oximetry 01/23/22 01/23/22 01/23/22 05:15 05:52 08:21 Temperature 97.2 F L Pulse Rate 98 H Respiratory 18 Rate Blood Pressure 178/85 181/91 Blood Pressure [Right] O2 Sat by Pulse 100 100 98 Oximetry 01/23/22 12:00 Temperature 97.4 F L Pulse Rate 96 H Respiratory 20 Rate Blood Pressure Blood Pressure 179/84 [Right] O2 Sat by Pulse 98 Oximetry - Laboratory Findings CBC and BMP: 01/23/22 04:26 01/23/22 04:26 Abnormal Lab Findings: Abnormal Labs 01/22/22 01/22/22 01/22/22 19:28 19:28 19:28 RBC Hgb Hct MCH 25 L RDW 15.4 H Lymph % (Auto) 9.2 L Isabella % (Auto) Lymph # (Auto) 1.0 L Isabella # (Auto) Seg Neutrophils % 82.9 H Seg Neutrophils # 8.8 H INR Sodium 131 L Chloride 91.8 L Glucose 581 H* POC Glucose Magnesium 1.40 L Alkaline Phosphatase 197 H Ammonia 17.0 L CK-MB (CK-2) CK-MB (CK-2) Rel Index Albumin 3.1 L HDL Cholesterol Salicylates 01/22/22 01/22/22 01/22/22 19:28 19:28 19:28 RBC Hgb Hct MCH RDW Lymph % (Auto) Isabella % (Auto) Lymph # (Auto) Isabella # (Auto) Seg Neutrophils % Seg Neutrophils # INR 0.84 L Sodium Chloride Glucose POC Glucose Magnesium Alkaline Phosphatase Ammonia CK-MB (CK-2) 4.9 H CK-MB (CK-2) Rel Index 4.4 H Albumin HDL Cholesterol Salicylates < 0.3 L 01/22/22 01/23/22 01/23/22 19:59 00:48 04:26 RBC 3.64 L Hgb 9.1 L Hct 28.8 L MCH 25 L RDW Lymph % (Auto) Isabella % (Auto) 10.9 H Lymph # (Auto) Isabella # (Auto) 1.2 H Seg Neutrophils % 74.1 H Seg Neutrophils # 7.9 H INR Sodium Chloride Glucose POC Glucose 466 H 228 H Magnesium Alkaline Phosphatase Ammonia CK-MB (CK-2) CK-MB (CK-2) Rel Index Albumin HDL Cholesterol Salicylates 01/23/22 01/23/22 01/23/22 04:26 05:47 11:55 RBC Hgb Hct MCH RDW Lymph % (Auto) Isabella % (Auto) Lymph # (Auto) Isabella # (Auto) Seg Neutrophils % Seg Neutrophils # INR Sodium 135 L Chloride Glucose 142 H POC Glucose 137 H 178 H Magnesium Alkaline Phosphatase Ammonia CK-MB (CK-2) CK-MB (CK-2) Rel Index Albumin HDL Cholesterol 75 H Salicylates
--- NOTE | 2022-01-23 14:08 | Magnetic Resonance Report ---
MR brain wo con INDICATION / CLINICAL INFORMATION: 56 years Female; Concern for stroke- possible hemorrhagic THIS IS 3RD ATTEMPT, PATIENT UNCOOPERATIVE, ATTIVAN PRIOR TO MRI, CONTINUED TO MOVE AND REFUSED TO COMPLETE EXAM, BEST POSSIBLE EXAM, PATIENT MO TION.. TECHNIQUE: Multiplanar, multisequence MR images of the brain were obtained. COMPARISON: The study is compared to the earlier CT had of 01/22/2022. FINDINGS: BRAIN / INTRACRANIAL CONTENTS: The motion significantly degrades the image quality and the patient wa s unable to complete the exam. However, the findings a correlate with the earlier CT demonstrating a lesion centered within the head of the right caudate measure approximately 1.3 cm in greatest AP dime nsion. This finding demonstrates restricted diffusion and would appear most consistent with acute/sub acute infarct at. There appears be a component of peripheral increased T1-weighted signal indicative of laminar necrosis which also correlates with the CT and compatible more subacute process. There otherwise appears to be mild to moderate cerebral white matter disease most consistent with doe rovascular angiopathy. The diffusion imaging reveals no further clear evidence of recent infarction. CRANIOCERVICAL JUNCTION: No significant abnormality. ORBITS: The orbits are obscured by the degree of motion artifact at. SINUSES / MASTOIDS: The paranasal sinuses appear pneumatized. ADDITIONAL FINDINGS: None. IMPRESSION: 1. The study is limited by motion. However, the constellation of MRI and CT findings appear most cons istent with subacute infarct involving the right caudate as detailed above. Complete MRI of the brain would be recommended once the patient is able to tolerate. Signer Name: Kris Do MD Signed: 01/23/2022 2:03 PM Workstation Name: [id number]
--- NOTE | 2022-01-23 14:23 | Progress Note ---
Assessment and Plan Assessment and plan: #Acute metabolic encephalopathy #Acute ischemic CVA #New onset seizure #Brain lesion CT head noncontrast revealing "a low attenuation lesion with hyperdensity around his present centered near the head of caudate nucleus on the right. This produces mild mass-effect with compression of the adjacent frontal horn of the right lateral ventricle. Small amount of increased attenuation matter at the posterior inferior margin of the lesion may represent calcification or small amount of hemorrhage. Considerations include brain neoplasia and abscess. Further evaluation with MRI brain to be performed without and with intravenous contrast material is advised." MRI brain without contrast "findings correlate with earlier CT demonstrating a lesion centered within the head of the right caudate measuring approximately 1.3 cm in the greatest AP dimension. This finding demonstrates restricted diffusion and would appear most consistent with acute/subacute infarct. There appears to be a component of peripheral increased T1 weighted signal indication of laminar necrosis which also correlates with the CT incompatible more subacute process." Pending MRI brain with contrast; multiple attempts were made on 01/23/2022. Patient remained agitated and would not allow completion of the full exam/image. Neurology consulted pending recs Neurosurgery consulted; appreciate recs Continue IV Keppra 1000 mg every 12 hours Physical therapy and Occupational Therapy consulted; pending recs Holding on aspirin and Plavix due to concerns for hemorrhagic evolution. Will defer to neurology. Continue to monitor #Closed fracture of left proximal humerus Continue to closely monitor as patient can follow-up with orthopedic surgery in outpatient setting. #Non-insulin dependent type II diabetes mellitus with hyperglycemia - hemoglobin A1c: Unknown - home regimen: Metformin 500 mg twice daily - current regimen: Moderate SSI - blood glucose goal 140-180 while inpatient - continue to monitor #Normocytic anemia Hemoglobin 9.1 Pending iron panel + ferritin Transfuse if hemoglobin <7 or patient becomes symptomatic. #Mild protein caloric malnutrition Albumin 3.1 We will start dietary supplementation when patient becomes more alert. #Obesity #Weight loss counseling #Exercise counseling - BMI 33.2 - Counseled patient on the importance of weight loss, incorporating exercise, and dietary changes (lean meats, fresh fruits and vegetables, and water intake). Patient expresses understanding. - Time: +15 min #Advanced care planning -Disease education conducted, care plan discussed, diagnoses discussed, prognosis discussed, and patient acknowledges understanding with care plan -Time: +30 min Disposition Plan: Continue medical management Total Time Spent with Patient (Minutes): 45 minutes History Interval history: Patient remained extremely agitated and slightly combative during the night, and this continued despite multiple administrations of IV Ativan. Hospitalist Physical - Constitutional Vitals: Temp Pulse Resp BP Pulse Ox 97.4 F L 96 H 20 179/84 98 01/23/22 12:00 01/23/22 12:00 01/23/22 12:00 01/23/22 12:00 01/23/22 12:00 General appearance: Present: no acute distress, well-nourished, obese - EENT Eyes: Present: PERRL, EOM intact ENT: hearing intact, clear oral mucosa, dentition normal - Neck Neck: Present: supple, normal ROM - Respiratory Respiratory effort: normal Respiratory: bilateral: CTA - Cardiovascular Rhythm: regular Heart Sounds: Present: S1 & S2 - Extremities Extremities: no ischemia, pulses intact, pulses symmetrical, No edema, normal temperature, normal color Peripheral Pulses: within normal limits - Abdominal General gastrointestinal: soft, non-tender, non-distended, normal bowel sounds - Integumentary Integumentary: Present: clear, warm, dry - Psychiatric Psychiatric: agitated, other (Disoriented and agitated; difficult to calm down) - Neurologic Neurologic: CNII-XII intact, moves all extremities, other (Alert and oriented x2) - Allied Health Allied health notes reviewed: nursing HEART Score - HEART Score Troponin: Troponin T 0.020 ng/mL (0.00-0.029) 01/22/22 19:28 Results - Labs CBC & Chem 7: 01/23/22 04:26 01/23/22 04:26 Labs: Laboratory Last Values WBC 10.7 K/mm3 (4.5-11.0) 01/23/22 04:26 RBC 3.64 M/mm3 (3.65-5.03) L 01/23/22 04:26 Hgb 9.1 gm/dl (10.1-14.3) L 01/23/22 04:26 Hct 28.8 % (30.3-42.9) L 01/23/22 04:26 MCV 79 fl (79-97) 01/23/22 04:26 MCH 25 pg (28-32) L 01/23/22 04:26 MCHC 32 % (30-34) 01/23/22 04:26 RDW 15.0 % (13.2-15.2) 01/23/22 04:26 Plt Count 377 K/mm3 (140-440) 01/23/22 04:26 Lymph % (Auto) 14.1 % (13.4-35.0) 01/23/22 04:26 Greenlee % (Auto) 10.9 % (0.0-7.3) H 01/23/22 04:26 Eos % (Auto) 0.5 % (0.0-4.3) 01/23/22 04:26 Baso % (Auto) 0.4 % (0.0-1.8) 01/23/22 04:26 Lymph # (Auto) 1.5 K/mm3 (1.2-5.4) 01/23/22 04:26 Greenlee # (Auto) 1.2 K/mm3 (0.0-0.8) H 01/23/22 04:26 Eos # (Auto) 0.1 K/mm3 (0.0-0.4) 01/23/22 04:26 Baso # (Auto) 0.0 K/mm3 (0.0-0.1) 01/23/22 04:26 Seg Neutrophils % 74.1 % (40.0-70.0) H 01/23/22 04:26 Seg Neutrophils # 7.9 K/mm3 (1.8-7.7) H 01/23/22 04:26 PT 12.4 Sec. (12.2-14.9) 01/22/22 19:28 INR 0.84 (0.87-1.13) L 01/22/22 19:28 APTT 26.4 Sec. (24.2-36.6) 01/22/22 19:28 VBG pH 7.398 (7.320-7.420) 01/22/22 19:28 Sodium 135 mmol/L (137-145) L 01/23/22 04:26 Potassium 4.1 mmol/L (3.6-5.0) 01/23/22 04:26 Chloride 100.1 mmol/L (98-107) 01/23/22 04:26 Carbon Dioxide 28 mmol/L (22-30) 01/23/22 04:26 Anion Gap 11 mmol/L 01/23/22 04:26 BUN 13 mg/dL (7-17) 01/23/22 04:26 Creatinine 0.9 mg/dL (0.6-1.2) 01/23/22 04:26 Estimated GFR > 60 ml/min 01/23/22 04:26 BUN/Creatinine Ratio 14 % 01/23/22 04:26 Glucose 142 mg/dL (65-100) H 01/23/22 04:26 POC Glucose 178 mg/dL (70-105) H 01/23/22 11:55 Calcium 8.6 mg/dL (8.4-10.2) 01/23/22 04:26 Magnesium 1.40 mg/dL (1.7-2.3) L 01/22/22 19:28 Total Bilirubin 0.30 mg/dL (0.1-1.2) 01/22/22 19:28 AST 15 units/L (5-40) 01/22/22 19:28 ALT 14 units/L (7-56) 01/22/22 19:28 Alkaline Phosphatase 197 units/L (35-129) H 01/22/22 19:28 Ammonia 17.0 umol/L (25-60) L 01/22/22 19:28 Total Creatine Kinase 109 units/L (30-135) 01/22/22 19:28 CK-MB (CK-2) 4.9 ng/mL (0.0-4.0) H 01/22/22 19:28 CK-MB (CK-2) Rel Index 4.4 (0-4) H 01/22/22 19:28 Troponin T 0.020 ng/mL (0.00-0.029) 01/22/22 19:28 Total Protein 7.4 g/dL (6.3-8.2) 01/22/22 19:28 Albumin 3.1 g/dL (3.9-5) L 01/22/22 19:28 Albumin/Globulin Ratio 0.7 % 01/22/22 19:28 Triglycerides 43 mg/dL (2-149) 01/23/22 04:26 Cholesterol 139 mg/dL (50-199) 01/23/22 04:26 LDL Cholesterol Direct 68 mg/dL (50-130) 01/23/22 04:26 HDL Cholesterol 75 mg/dL (40-59) H 01/23/22 04:26 Cholesterol/HDL Ratio 1.85 % 01/23/22 04:26 TSH 1.460 mlU/mL (0.270-4.200) 01/22/22 19:28 Free T4 1.32 ng/dL (0.76-1.46) 01/22/22 19:28 Salicylates < 0.3 mg/dL (2.8-20.0) L 01/22/22 19:28 Plasma/Serum Alcohol < 0.01 % (0-0.07) 01/22/22 19:28 Blood Type O POSITIVE 01/22/22 19:28 Antibody Screen Negative 01/22/22 19:28 Active Medications - Current Medications Current Medications: Generic Name Dose Route Start Last Admin Trade Name Freq PRN Reason Stop Dose Admin Acetaminophen 650 mg 01/22/22 23:54 Acetaminophen 325 Mg Tab PO Q4H PRN Pain MILD(1-3)/Fever >100.5/VANEGAS Albuterol 2.5 mg 01/22/22 23:54 Albuterol 2.5 Mg/3 Ml Nebu IH Q3HRT PRN Shortness Of Breath Atorvastatin Calcium 40 mg 01/23/22 22:00 Atorvastatin 40 Mg Tab PO QHS FABIO Dextrose 0 ml 01/22/22 23:56 Dextrose 50% In Water (25gm) 50 Ml Syringe IV Q30MIN PRN Hypoglycemia Protocol Famotidine 20 mg 01/23/22 10:00 01/23/22 11:24 Famotidine 20 Mg/2 Ml Inj IV Not Given BID FABIO Sodium Chloride 1,000 mls @ 100 mls/hr 01/22/22 23:45 Nacl 0.9% 1000 Ml IV DIRECT FABIO Insulin Human Lispro 0 unit 01/23/22 00:00 01/23/22 12:09 Insulin Lispro 100 Unit/Ml SUB-Q 3 unit Q6HR FABIO Administration Protocol Labetalol HCl 10 mg 01/22/22 23:56 Labetalol 20 Mg/4 Ml Inj IV Q5MIN PRN to maintain SBP < 180 Lorazepam 2 mg 01/23/22 10:00 01/23/22 09:58 Lorazepam 2 Mg/Ml Vial IV 2 mg Q6H PRN Administration Agitation Morphine Sulfate 2 mg 01/22/22 23:54 Morphine 2 Mg/1 Ml Inj IV Q4H PRN Pain, Moderate (4-6) Morphine Sulfate 4 mg 01/22/22 23:54 Morphine 4 Mg/1 Ml Inj IV Q4H PRN Pain , Severe (7-10) Ondansetron HCl 4 mg 01/22/22 23:54 Ondansetron 4 Mg/2 Ml Inj IV Q8H PRN Nausea And Vomiting Sodium Chloride 10 ml 01/23/22 10:00 01/23/22 11:24 Sodium Chloride 0.9% 10 Ml Flush Syringe IV Not Given BID FABIO Sodium Chloride 10 ml 01/22/22 23:54 Sodium Chloride 0.9% 10 Ml Flush Syringe IV PRN PRN LINE FLUSH
--- NOTE | 2022-01-23 14:41 | Event Note ---
Date: 01/23/22 Attempts were made to reach the patient's daughter Tri Lopez ([phone]) and a voicemail was left. Will make additional attempts to reach her later on today.
--- NOTE | 2022-01-23 15:29 | Consultation ---
History of Present Illness Consult date: 01/23/22 Reason for Consult: brain lesion Chief complaint: I'm tired. History of present illness: 56 yo female with htn, dm, hld, childhood seizures (requiring AEDs), who presents with noted seizure activity with encephalopathy. Patient denies any hx of a stroke. Notes she is tired and sleepy. Denies any focal neurologic d eficits. Past History Past Medical History: diabetes, hypertension Past Surgical History: Other (Left arm fracture) Social history: no significant social history Family history: hypertension Medications and Allergies Allergies Allergy/AdvReac Type Severity Reaction Status Date / Time No Known Allergies Allergy Verified 01/22/22 17:47 Home Medications Medication Instructions Recorded Confirmed Last Taken Type amLODIPine 5 mg PO DAILY 01/23/22 01/23/22 01/22/22 History metFORMIN [Glucophage] 500 mg PO BID 01/23/22 01/23/22 01/22/22 History Active Meds: Active Medications Acetaminophen (Acetaminophen 325 Mg Tab) 650 mg PO Q4H PRN PRN Reason: Pain MILD(1-3)/Fever >100.5/VANEGAS Albuterol (Albuterol 2.5 Mg/3 Ml Nebu) 2.5 mg IH Q3HRT PRN PRN Reason: Shortness Of Breath Atorvastatin Calcium (Atorvastatin 40 Mg Tab) 40 mg PO QHS FABIO Dextrose (Dextrose 50% In Water (25gm) 50 Ml Syringe) 0 ml IV Q30MIN PRN; Protocol PRN Reason: Hypoglycemia Famotidine (Famotidine 20 Mg/2 Ml Inj) 20 mg IV BID FABIO Last Admin: 01/23/22 11:24 Dose: Not Given Sodium Chloride (Nacl 0.9% 1000 Ml) 1,000 mls @ 100 mls/hr IV DIRECT FABIO Levetiracetam 1,000 mg/ (Dextrose) 110 mls @ 400 mls/hr IV Q12HR FABIO Insulin Human Lispro (Insulin Lispro 100 Unit/Ml) 0 unit SUB-Q Q6HR FABIO; Protocol Last Admin: 01/23/22 12:09 Dose: 3 unit Labetalol HCl (Labetalol 20 Mg/4 Ml Inj) 10 mg IV Q5MIN PRN PRN Reason: to maintain SBP < 180 Lorazepam (Lorazepam 2 Mg/Ml Vial) 2 mg IV Q6H PRN PRN Reason: Agitation Last Admin: 01/23/22 09:58 Dose: 2 mg Morphine Sulfate (Morphine 2 Mg/1 Ml Inj) 2 mg IV Q4H PRN PRN Reason: Pain, Moderate (4-6) Morphine Sulfate (Morphine 4 Mg/1 Ml Inj) 4 mg IV Q4H PRN PRN Reason: Pain , Severe (7-10) Ondansetron HCl (Ondansetron 4 Mg/2 Ml Inj) 4 mg IV Q8H PRN PRN Reason: Nausea And Vomiting Sodium Chloride (Sodium Chloride 0.9% 10 Ml Flush Syringe) 10 ml IV BID [facility] Last Admin: 01/23/22 11:24 Dose: Not Given Sodium Chloride (Sodium Chloride 0.9% 10 Ml Flush Syringe) 10 ml IV PRN PRN PRN Reason: LINE FLUSH Review of Systems ROS unobtainable: due to mental status Physical Examination - Vital Signs Vital Signs: Vital Signs Pulse Resp BP Pulse Ox 120 H 18 190/100 98 01/22/22 17:33 01/22/22 17:33 01/22/22 17:33 01/22/22 17:33 - Physical Exam Narrative exam: Gen: nad, well-nourished; Head: normocephalic; Eyes: no gaze deviation; no ptosis; ENT: normal vocalization; CVS: warm and well-perfused; Pulm: no respiratory distress; GI: appears non-distended; Ext: no cyanosis appreciated at distal extremities; left arm sling noted; Skin: no acute rash at distal extremities; Heme: no pathologic ecchymosis appreciated at distal extremities; Neuro: lethargic (s/p ?ativan), oriented to name, age, month, not year, slight dysarthria, no aphasia, CN 2 - PERRL, visual mcneil grossly intact, CN 3, 4, 6 - EOMI, CN 5 - facial sensation symmetric to light touch, CN 7 - facial movement decreased on the left, CN 8 - hearing grossly intact, CN 9, 10 - uvula midline, CN 11 symmetric shoulder movement but limited effort, CN 12 - tongue midline; Motor - at least 3/5 at all exts distally (limited effort noted); Sensory - light touch symmetric, Cerebellar - not cooperative due to loc, Gait - deferred secondary to fall risk; NIHSS (1a.) Level of Consciousness:1 (1b.) LOC Questions:0 (1c.) LOC Commands:0 (2.) Best Gaze:0 (3.) Visual:0 (4.) Facial Palsy:1 (5a.) Motor Arm, Left:1 (5b.) Motor Arm, Right:1 (6a.) Motor Leg, Left:0 (6b.) Motor Leg, Right:0 (7.) Limb Ataxia:pt is not cooperative due to loc (8.) Sensory:0 (9.) Best Language:0 (10.) Dysarthria: 1 (11.) Extinction and Inattention:1 NIHSS Total Score: 6 Results - Laboratory Findings CBC and BMP: 01/23/22 04:26 01/23/22 04:26 Abnormal Lab Findings: Abnormal Labs 01/22/22 01/22/22 01/22/22 19:28 19:28 19:28 RBC Hgb Hct MCH 25 L RDW 15.4 H Lymph % (Auto) 9.2 L [place] % (Auto) Lymph # (Auto) 1.0 L [place] # (Auto) Seg Neutrophils % 82.9 H Seg Neutrophils # 8.8 H INR Sodium 131 L Chloride 91.8 L Glucose 581 H* POC Glucose Magnesium 1.40 L Alkaline Phosphatase 197 H Ammonia 17.0 L CK-MB (CK-2) CK-MB (CK-2) Rel Index Albumin 3.1 L HDL Cholesterol Salicylates 01/22/22 01/22/22 01/22/22 19:28 19:28 19:28 RBC Hgb Hct MCH RDW Lymph % (Auto) [place] % (Auto) Lymph # (Auto) [place] # (Auto) Seg Neutrophils % Seg Neutrophils # INR 0.84 L Sodium Chloride Glucose POC Glucose Magnesium Alkaline Phosphatase Ammonia CK-MB (CK-2) 4.9 H CK-MB (CK-2) Rel Index 4.4 H Albumin HDL Cholesterol Salicylates < 0.3 L 01/22/22 01/23/22 01/23/22 19:59 00:48 04:26 RBC 3.64 L Hgb 9.1 L Hct 28.8 L MCH 25 L RDW Lymph % (Auto) [place] % (Auto) 10.9 H Lymph # (Auto) [place] # (Auto) 1.2 H Seg Neutrophils % 74.1 H Seg Neutrophils # 7.9 H INR Sodium Chloride Glucose POC Glucose 466 H 228 H Magnesium Alkaline Phosphatase Ammonia CK-MB (CK-2) CK-MB (CK-2) Rel Index Albumin HDL Cholesterol Salicylates 01/23/22 01/23/22 01/23/22 04:26 05:47 11:55 RBC Hgb Hct MCH RDW Lymph % (Auto) [place] % (Auto) Lymph # (Auto) [place] # (Auto) Seg Neutrophils % Seg Neutrophils # INR Sodium 135 L Chloride Glucose 142 H POC Glucose 137 H 178 H Magnesium Alkaline Phosphatase Ammonia CK-MB (CK-2) CK-MB (CK-2) Rel Index Albumin HDL Cholesterol 75 H Salicylates Assessment and Plan 56 yo female with htn, dm, hld, childhood seizures (requiring AEDs), who presents with noted seizure activity with encephalopathy. 1. Acute / Subacute Ischemic Stroke - asa 81 mg po qday; statin therapy for a goal ldl of 70; confirm tsh, a1c, lipid panel; cta head/neck w/ wo contrast; tte; pt/ot/st/swallow evaluation/monitoring; stroke education prior to d/c. 2. Seizure d/o - hx of childhoold seizures (requiring AEDs); location of stroke does not explain seizure activity but may be triggered by BGL of 581; meta bolic/infectious/toxic trigger workup per primary team; MRI Brain w/ contrast when clinically stable; eeg; keppra 750 mg iv/po bid; seizure precautions / restrictions. 3. Hypertension - SBP <140 mmHg / DBP 80 mmHg. 4. DM - maintain euglycemia. 5. HLD - goal ldl of 70 w/ statin therapy. 6. Left Facial Droop / dysphagia / dysarthria - st / swallow evaluation/monitoring. 7. Unsteady Gait - pt/ot evaluation/monitoring. Rojelio Joyner MD Neurology [id number]
[2022-01-23] MEDS: levETIRAcetam 1,000 MG in DEXTROSE 5% IN WATER 100 ML IV SCH (23:43)
[2022-01-24 05:46] LABS: Basophils % (Auto) 0.4 % (0.0-1.8); Eosinophils # (Auto) 0.1 K/mm3 (0.0-0.4); Eosinophils % (Auto) 1.3 % (0.0-4.3); Hematocrit 33.7 % (30.3-42.9); Hemoglobin 10.7 gm/dl (10.1-14.3); Lymphocytes # (Auto) 1.6 K/mm3 (1.2-5.4); Mean Corpuscular HGB Conc 32 % (30-34); Mean Corpuscular Volume 80 fl (79-97); Monocytes # (Auto) 1.2 K/mm3 (0.0-0.8); Monocytes % (Auto) 10.8 % (0.0-7.3); Platelet Count 428 K/mm3 (140-440); Red Blood Count 4.24 M/mm3 (3.65-5.03); Red Cell Distribution Width 15.5 % (13.2-15.2)
[2022-01-24 06:05] LABS: BUN/Creatinine Ratio 13; Blood Urea Nitrogen 13 mg/dL (7-17); Calcium 9.1 mg/dL (8.4-10.2); Hemolysis Index 2; Iron 20 ug/dL (37-170); Total Iron Binding Capacity 154 mcg/dL (250-450)
[2022-01-24] MEDS ORDERED: LORazepam 2 MG/ML VIAL IV NR (07:32)
[2022-01-24] MEDS: INSULIN LISPRO 100 UNIT/ML SUB-Q SCH ×4 (08:18→18:04)
[2022-01-24] MEDS ORDERED: ZIPRASIDONE MESYLATE 20 MG VIAL IM NR (10:30)
[2022-01-24] MEDS: FAMOTIDINE 20 MG/2 ML INJ IV SCH ×2 (11:45→21:55)
[2022-01-24] MEDS: levETIRAcetam 1,000 MG in DEXTROSE 5% IN WATER 100 ML IV SCH ×2 (11:45→21:54)
[2022-01-24] MEDS: ASPIRIN 81 MG TAB CHEW PO SCH (11:47)
--- NOTE | 2022-01-24 15:58 | Progress Note ---
Subjective Date of service: 01/24/22 Interval history: NSGY update: MRI reviewed- r caudate lesion consistent with infarct. No further NSGY intervention. Continued evaluation and treatment with Neurology. Please notify if questions/concerns. Objective - Vital Sign Vital Signs - 12hr 01/24/22 01/24/22 01/24/22 04:55 08:26 08:45 Temperature 98.1 F Pulse Rate 92 H 90 Respiratory 18 16 Rate Blood Pressure Blood Pressure 182/91 164/91 [Right] O2 Sat by Pulse 98 96 95 Oximetry 01/24/22 01/24/22 12:03 14:00 Temperature Pulse Rate 87 Respiratory Rate Blood Pressure 170/86 Blood Pressure 170/86 [Right] O2 Sat by Pulse 98 100 Oximetry - Laboratory Findings CBC and BMP: 01/24/22 04:36 01/24/22 04:36 Abnormal Lab Findings: Abnormal Labs 01/22/22 01/22/22 01/22/22 19:28 19:28 19:28 RBC Hgb Hct MCH 25 L RDW 15.4 H Lymph % (Auto) 9.2 L [place] % (Auto) Lymph # (Auto) 1.0 L [place] # (Auto) Seg Neutrophils % 82.9 H Seg Neutrophils # 8.8 H INR Sodium 131 L Chloride 91.8 L Glucose 581 H* POC Glucose Hemoglobin A1c Magnesium 1.40 L Iron TIBC Alkaline Phosphatase 197 H Ammonia 17.0 L CK-MB (CK-2) CK-MB (CK-2) Rel Index Albumin 3.1 L HDL Cholesterol Salicylates 01/22/22 01/22/22 01/22/22 19:28 19:28 19:28 RBC Hgb Hct MCH RDW Lymph % (Auto) [place] % (Auto) Lymph # (Auto) [place] # (Auto) Seg Neutrophils % Seg Neutrophils # INR 0.84 L Sodium Chloride Glucose POC Glucose Hemoglobin A1c Magnesium Iron TIBC Alkaline Phosphatase Ammonia CK-MB (CK-2) 4.9 H CK-MB (CK-2) Rel Index 4.4 H Albumin HDL Cholesterol Salicylates < 0.3 L 01/22/22 01/23/22 01/23/22 19:59 00:48 04:26 RBC 3.64 L Hgb 9.1 L Hct 28.8 L MCH 25 L RDW Lymph % (Auto) [place] % (Auto) 10.9 H Lymph # (Auto) [place] # (Auto) 1.2 H Seg Neutrophils % 74.1 H Seg Neutrophils # 7.9 H INR Sodium Chloride Glucose POC Glucose 466 H 228 H Hemoglobin A1c Magnesium Iron TIBC Alkaline Phosphatase Ammonia CK-MB (CK-2) CK-MB (CK-2) Rel Index Albumin HDL Cholesterol Salicylates 01/23/22 01/23/22 01/23/22 04:26 05:47 11:55 RBC Hgb Hct MCH RDW Lymph % (Auto) [place] % (Auto) Lymph # (Auto) [place] # (Auto) Seg Neutrophils % Seg Neutrophils # INR Sodium 135 L Chloride Glucose 142 H POC Glucose 137 H 178 H Hemoglobin A1c Magnesium Iron TIBC Alkaline Phosphatase Ammonia CK-MB (CK-2) CK-MB (CK-2) Rel Index Albumin HDL Cholesterol 75 H Salicylates 01/23/22 01/24/22 01/24/22 22:04 04:36 04:36 RBC Hgb Hct MCH 25 L RDW 15.5 H Lymph % (Auto) [place] % (Auto) 10.8 H Lymph # (Auto) [place] # (Auto) 1.2 H Seg Neutrophils % 72.5 H Seg Neutrophils # 7.8 H INR Sodium 136 L Chloride Glucose 159 H POC Glucose 140 H Hemoglobin A1c Magnesium Iron 20 L TIBC 154 L Alkaline Phosphatase Ammonia CK-MB (CK-2) CK-MB (CK-2) Rel Index Albumin HDL Cholesterol Salicylates 01/24/22 01/24/22 04:36 07:37 RBC Hgb Hct MCH RDW Lymph % (Auto) [place] % (Auto) Lymph # (Auto) [place] # (Auto) Seg Neutrophils % Seg Neutrophils # INR Sodium Chloride Glucose POC Glucose 150 H Hemoglobin A1c 13.2 H Magnesium Iron TIBC Alkaline Phosphatase Ammonia CK-MB (CK-2) CK-MB (CK-2) Rel Index Albumin HDL Cholesterol Salicylates
--- NOTE | 2022-01-24 16:27 | Progress Note ---
Assessment and Plan Assessment and plan: #Acute metabolic encephalopathy #Acute ischemic CVA #New onset seizure #Brain lesion CT head noncontrast revealing "a low attenuation lesion with hyperdensity around his present centered near the head of caudate nucleus on the right. This produces mild mass-effect with compression of the adjacent frontal horn of the right lateral ventricle. Small amount of increased attenuation matter at the posterior inferior margin of the lesion may represent calcification or small amount of hemorrhage. Considerations include brain neoplasia and abscess. Further evaluation with MRI brain to be performed without and with intravenous contrast material is advised." MRI brain without contrast "findings correlate with earlier CT demonstrating a lesion centered within the head of the right caudate measuring approximately 1.3 cm in the greatest AP dimension. This finding demonstrates restricted diffusion and would appear most consistent with acute/subacute infarct. There appears to be a component of peripheral increased T1 weighted signal indication of laminar necrosis which also correlates with the CT incompatible more subacute process." Pending MRI brain with contrast; multiple attempts were made on 01/23/2022. Patient remained agitated and would not allow completion of the full exam/image. Neurology consulted pending recs Neurosurgery consulted; appreciate recs Continue IV Keppra 1000 mg every 12 hours Physical therapy and Occupational Therapy consulted; pending recs Starting aspirin 81 mg daily , Plavix 75mg daily and atorvastatin 40mg daily per stroke protocol. Hemoglobin A1c 13.2. Lipid profile: Triglycerides 43, c holesterol 139, LDL 68, HDL 75 Continue to monitor #Closed fracture of left proximal humerus Continue to closely monitor as patient can follow-up with orthopedic surgery in outpatient setting. #Non-insulin dependent type II diabetes mellitus with hyperglycemia - hemoglobin A1c: 13.2 - home regimen: Metformin 500 mg twice daily - current regimen: Moderate SSI - blood glucose goal 140-180 while inpatient - continue to monitor #Iron deficiency anemia Hemoglobin 9.1 Iron 20, TIBC 154, ferritin 170 Transfuse if hemoglobin <7 or patient becomes symptomatic. #Mild protein caloric malnutrition Albumin 3.1 We will start dietary supplementation when patient becomes more alert. #Obesity #Weight loss counseling #Exercise counseling - BMI 33.2 - Counseled patient on the importance of weight loss, incorporating exercise, and dietary changes (lean meats, fresh fruits and vegetables, and water intake). Patient expresses understanding. - Time: +15 min #Advanced care planning -Disease education conducted, care plan discussed, diagnoses discussed, prognosis discussed, and patient acknowledges understanding with care plan -Time: +30 min Disposition Plan: Continue medical management Total Time Spent with Patient (Minutes): 45 minutes History Interval history: Patient was unable to have her MRI brain w/ contrast due to agitation despite numerous attempts to sedate her. Hospitalist Physical - Constitutional Vitals: Temp Pulse Resp BP Pulse Ox 98.1 F 87 16 170/86 100 01/24/22 04:55 01/24/22 12:03 01/24/22 08:45 01/24/22 12:03 01/24/22 14:00 General appearance: Present: no acute distress, well-nourished, obese - EENT Eyes: Present: PERRL, EOM intact ENT: hearing intact, clear oral mucosa, dentition normal - Neck Neck: Present: supple, normal ROM - Respiratory Respiratory effort: normal Respiratory: bilateral: CTA - Cardiovascular Rhythm: regular Heart Sounds: Present: S1 & S2 - Extremities Extremities: no ischemia, pulses intact, pulses symmetrical, No edema, normal temperature, normal color Peripheral Pulses: within normal limits - Abdominal General gastrointestinal: soft, non-tender, non-distended, normal bowel sounds - Integumentary Integumentary: Present: clear, warm, dry - Psychiatric Psychiatric: agitated - Neurologic Neurologic: CNII-XII intact - Allied Health Allied health notes reviewed: nursing HEART Score - HEART Score Troponin: Troponin T 0.020 ng/mL (0.00-0.029) 01/22/22 19:28 Results - Labs CBC & Chem 7: 01/24/22 04:36 01/24/22 04:36 Labs: Laboratory Last Values WBC 10.7 K/mm3 (4.5-11.0) 01/24/22 04:36 RBC 4.24 M/mm3 (3.65-5.03) 01/24/22 04:36 Hgb 10.7 gm/dl (10.1-14.3) 01/24/22 04:36 Hct 33.7 % (30.3-42.9) 01/24/22 04:36 MCV 80 fl (79-97) 01/24/22 04:36 MCH 25 pg (28-32) L 01/24/22 04:36 MCHC 32 % (30-34) 01/24/22 04:36 RDW 15.5 % (13.2-15.2) H 01/24/22 04:36 Plt Count 428 K/mm3 (140-440) 01/24/22 04:36 Lymph % (Auto) 15.0 % (13.4-35.0) 01/24/22 04:36 [place] % (Auto) 10.8 % (0.0-7.3) H 01/24/22 04:36 Eos % (Auto) 1.3 % (0.0-4.3) 01/24/22 04:36 Baso % (Auto) 0.4 % (0.0-1.8) 01/24/22 04:36 Lymph # (Auto) 1.6 K/mm3 (1.2-5.4) 01/24/22 04:36 [place] # (Auto) 1.2 K/mm3 (0.0-0.8) H 01/24/22 04:36 Eos # (Auto) 0.1 K/mm3 (0.0-0.4) 01/24/22 04:36 Baso # (Auto) 0.0 K/mm3 (0.0-0.1) 01/24/22 04:36 Seg Neutrophils % 72.5 % (40.0-70.0) H 01/24/22 04:36 Seg Neutrophils # 7.8 K/mm3 (1.8-7.7) H 01/24/22 04:36 PT 12.4 Sec. (12.2-14.9) 01/22/22 19:28 INR 0.84 (0.87-1.13) L 01/22/22 19:28 APTT 26.4 Sec. (24.2-36.6) 01/22/22 19:28 VBG pH 7.398 (7.320-7.420) 01/22/22 19:28 Sodium 136 mmol/L (137-145) L 01/24/22 04:36 Potassium 4.6 mmol/L (3.6-5.0) 01/24/22 04:36 Chloride 99.7 mmol/L (98-107) 01/24/22 04:36 Carbon Dioxide 24 mmol/L (22-30) 01/24/22 04:36 Anion Gap 17 mmol/L 01/24/22 04:36 BUN 13 mg/dL (7-17) 01/24/22 04:36 Creatinine 1.0 mg/dL (0.6-1.2) 01/24/22 04:36 Estimated GFR > 60 ml/min 01/24/22 04:36 BUN/Creatinine Ratio 13 % 01/24/22 04:36 Glucose 159 mg/dL (65-100) H 01/24/22 04:36 POC Glucose 95 mg/dL (70-105) 01/24/22 11:15 Hemoglobin A1c 13.2 % (4-6) H 01/24/22 04:36 Calcium 9.1 mg/dL (8.4-10.2) 01/24/22 04:36 Magnesium 1.40 mg/dL (1.7-2.3) L 01/22/22 19:28 Iron 20 ug/dL (37-170) L 01/24/22 04:36 TIBC 154 mcg/dL (250-450) L 01/24/22 04:36 Ferritin 169.9 ng/mL (10.0-200.0) 01/24/22 04:36 Total Bilirubin 0.30 mg/dL (0.1-1.2) 01/22/22 19:28 AST 15 units/L (5-40) 01/22/22 19:28 ALT 14 units/L (7-56) 01/22/22 19:28 Alkaline Phosphatase 197 units/L (35-129) H 01/22/22 19:28 Ammonia 17.0 umol/L (25-60) L 01/22/22 19:28 Total Creatine Kinase 109 units/L (30-135) 01/22/22 19:28 CK-MB (CK-2) 4.9 ng/mL (0.0-4.0) H 01/22/22 19:28 CK-MB (CK-2) Rel Index 4.4 (0-4) H 01/22/22 19:28 Troponin T 0.020 ng/mL (0.00-0.029) 01/22/22 19:28 Total Protein 7.4 g/dL (6.3-8.2) 01/22/22 19:28 Albumin 3.1 g/dL (3.9-5) L 01/22/22 19:28 Albumin/Globulin Ratio 0.7 % 01/22/22 19:28 Triglycerides 43 mg/dL (2-149) 01/23/22 04:26 Cholesterol 139 mg/dL (50-199) 01/23/22 04:26 LDL Cholesterol Direct 68 mg/dL (50-130) 01/23/22 04:26 HDL Cholesterol 75 mg/dL (40-59) H 01/23/22 04:26 Cholesterol/HDL Ratio 1.85 % 01/23/22 04:26 TSH 1.110 mlU/mL (0.270-4.200) 01/24/22 04:36 Free T4 1.32 ng/dL (0.76-1.46) 01/22/22 19:28 Salicylates < 0.3 mg/dL (2.8-20.0) L 01/22/22 19:28 Plasma/Serum Alcohol < 0.01 % (0-0.07) 01/22/22 19:28 Blood Type O POSITIVE 01/22/22 19:28 Antibody Screen Negative 01/22/22 19:28 Active Medications - Current Medications Current Medications: Generic Name Dose Route Start Last Admin Trade Name Freq PRN Reason Stop Dose Admin Acetaminophen 650 mg 01/22/22 23:54 Acetaminophen 325 Mg Tab PO Q4H PRN Pain MILD(1-3)/Fever >100.5/VANEGAS Albuterol 2.5 mg 01/22/22 23:54 Albuterol 2.5 Mg/3 Ml Nebu IH Q3HRT PRN Shortness Of Breath Aspirin 81 mg 01/24/22 10:00 01/24/22 11:47 Aspirin 81 Mg Tab Chew PO 81 mg QDAY FABIO Administration Atorvastatin Calcium 40 mg 01/23/22 22:00 01/23/22 23:44 Atorvastatin 40 Mg Tab PO 40 mg QHS FABIO Administration Dextrose 0 ml 01/22/22 23:56 Dextrose 50% In Water (25gm) 50 Ml Syringe IV Q30MIN PRN Hypoglycemia Protocol Famotidine 20 mg 01/23/22 10:00 01/24/22 11:45 Famotidine 20 Mg/2 Ml Inj IV 20 mg BID FABIO Administration Sodium Chloride 1,000 mls @ 100 mls/hr 01/22/22 23:45 Nacl 0.9% 1000 Ml IV DIRECT FABIO Levetiracetam 1,000 mg/ 110 mls @ 400 mls/hr 01/23/22 22:00 01/24/22 11:45 Dextrose IV 400 mls/hr Q12HR FABIO Administration Insulin Human Lispro 0 unit 01/23/22 00:00 01/24/22 12:08 Insulin Lispro 100 Unit/Ml SUB-Q Not Given Q6HR FABIO Protocol Labetalol HCl 10 mg 01/22/22 23:56 Labetalol 20 Mg/4 Ml Inj IV Q5MIN PRN to maintain SBP < 180 Labetalol HCl 10 mg 01/24/22 08:00 01/24/22 12:06 Labetalol 20 Mg/4 Ml Inj IV 10 mg Q6HR FABIO Administration Lorazepam 2 mg 01/23/22 10:00 01/23/22 09:58 Lorazepam 2 Mg/Ml Vial IV 2 mg Q6H PRN Administration Agitation Morphine Sulfate 2 mg 01/22/22 23:54 Morphine 2 Mg/1 Ml Inj IV Q4H PRN Pain, Moderate (4-6) Morphine Sulfate 4 mg 01/22/22 23:54 Morphine 4 Mg/1 Ml Inj IV Q4H PRN Pain , Severe (7-10) Ondansetron HCl 4 mg 01/22/22 23:54 Ondansetron 4 Mg/2 Ml Inj IV Q8H PRN Nausea And Vomiting Sodium Chloride 10 ml 01/23/22 10:00 01/24/22 11:47 Sodium Chloride 0.9% 10 Ml Flush Syringe IV 10 ml BID FABIO Administration Sodium Chloride 10 ml 01/22/22 23:54 Sodium Chloride 0.9% 10 Ml Flush Syringe IV PRN PRN LINE FLUSH Nutrition/Malnutrition Assess - Dietary Evaluation Nutrition/Malnutrition Findings: Nutrition Notes Start: 01/23/22 14:57 Freq: Status: Active Protocol: Document 01/23/22 14:57 SUJATHA (Rec: 01/23/22 15:07 SUJATHA [email or web address]) Nutrition Notes Need for Assessment generated from: MD Order,Education Initial or Follow up Brief Note Current Diagnosis Diabetes,Hypertension, Malnutrition,Stroke Other Pertinent Diagnosis Brain Lesion, R-Humerus Fracture, Metabolic Encephalopathy, Seizure, Anemia Current Diet NPO (since admission). 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 Weight Status Obese Subjective/Other Information RD consult for nutrition education assessment. Pt currently on NPO. Pt is on Room Air, O2 saturation @ 100%, according to Vital Signs notes. Pt still in critical condition , not a candidate for Nutrition Education at the time, will assess feasibility on F/U. Percent of energy/protein needs met: Pt currently on NPO. Nutrition Intervention Follow-Up By: 01/30/22 Additional Comments Nutrition education will be provided at F/U, if feasible. Continue monitoring food tolerance, %PO intake of meals , and BM.
--- NOTE | 2022-01-24 17:06 | Cat Scan Report ---
CTA NECK WITH CONTRAST 01/24/2022 INDICATION / CLINICAL INFORMATION: Stroke workup. COMPARISON: None. TECHNIQUE: Routine CTA of the neck is performed. 3-D/MIP reformats were postprocessed. Percentage st enosis is determined by direct quantitative measurements of diseased internal carotid artery diameter compared with normal distal internal carotid artery reference segments or by criteria similar to NICOLASA CET where applicable. All CT scans at this location are performed using CT dose reduction for ALARA b y means of automated exposure control. CONTRAST: 100 ml of Omnipaque 350 FINDINGS: Carotid bifurcations: No evidence of significant carotid bifurcation stenosis. Carotid arteries: No significant abnormality. Cervical vertebral arteries: No significant abnormality. Aortic arch: No significant abnormality. None. IMPRESSION: No significant abnormality. Signer Name: Chong Garcia MD Signed: 01/24/2022 5:01 PM Workstation Name: [id number]
--- NOTE | 2022-01-24 17:09 | Cat Scan Report ---
CTA HEAD WITH CONTRAST 01/24/2022 HISTORY: Stroke workup. No clinical information provided COMPARISON: None. TECHNIQUE: All CT scans at this location are performed using CT dose reduction for ALARA by means of automated exposure control.. 3-D/MIP reformats postprocessed. Percentage stenosis is determined by d irect quantitative measurements of diseased internal carotid artery diameter compared with normal dis alpesh internal carotid artery reference segments or by criteria similar to NASCET where applicable. CONTRAST: 100 ml of opaque 350 FINDINGS: CTA HEAD: Intracranial vertebral arteries: No significant abnormality. Basilar artery: No significant abnormality. Posterior cerebral arteries: No significant abnormality. Intracranial internal carotid arteries: No significant abnormality. Anterior cerebral arteries: No significant abnormality. Middle cerebral arteries: No significant abnormality. Dural venous sinuses:Not optimally opacified. No significant abnormality. Additional findings: None. IMPRESSION: 1. No significant abnormality. Signer Name: Chong Garcia MD Signed: 01/24/2022 5:05 PM Workstation Name: [id number]
[2022-01-25] MEDS: INSULIN LISPRO 100 UNIT/ML SUB-Q SCH ×4 (06:36→17:17)
--- NOTE | 2022-01-25 08:16 | Progress Note ---
Assessment and Plan Assessment and plan: #Acute metabolic encephalopathy #Acute ischemic CVA #New onset seizure #Brain lesion CT head noncontrast revealing "a low attenuation lesion with hyperdensity around his present centered near the head of caudate nucleus on the right. This produces mild mass-effect with compression of the adjacent frontal horn of the right lateral ventricle. Small amount of increased attenuation matter at the posterior inferior margin of the lesion may represent calcification or small amount of hemorrhage. Considerations include brain neoplasia and abscess. Further evaluation with MRI brain to be performed without and with intravenous contrast material is advised." MRI brain without contrast "findings correlate with earlier CT demonstrating a lesion centered within the head of the right caudate measuring approximately 1.3 cm in the greatest AP dimension. This finding demonstrates restricted diffusion and would appear most consistent with acute/subacute infarct. There appears to be a component of peripheral increased T1 weighted signal indication of laminar necrosis which also correlates with the CT incompatible more subacute process." Pending MRI brain with contrast; multiple attempts were made on 01/23/2022. Patient remained agitated and would not allow completion of the full exam/image. Neurology consulted; appreciate recs Neurosurgery consulted; appreciate recs Continue IV Keppra 1000 mg every 12 hours Physical therapy and Occupational Therapy consulted; pending recs Continue aspirin 81 mg daily , Plavix 75mg daily and atorvastatin 40mg daily per stroke protocol. Hemoglobin A1c 13.2. Lipid profile: Triglycerides 43, cholesterol 139, LDL 68, HDL 75 Continue to monitor #Closed fracture of left proximal humerus Continue to closely monitor as patient can follow-up with orthopedic surgery in outpatient setting. #Hypertension - home medications: None - current medications: Losartan 100 mg daily, Coreg 12.5 mg p.o. daily - SBP goal <160 and DBP goal <90 while inpatient - continue to monitor #Non-insulin dependent type II diabetes mellitus with hyperglycemia - hemoglobin A1c: 13.2 - home regimen: Metformin 500 mg twice daily - current regimen: Moderate SSI + NPH 70/30 15 units twice daily - blood glucose goal 140-180 while inpatient - continue to monitor #Iron deficiency anemia Hemoglobin 9.1 Iron 20, TIBC 154, ferritin 170. Ordering IV Ferrlecit 125 x1 (01/25/2022) Transfuse if hemoglobin <7 or patient becomes symptomatic. #Mild protein caloric malnutrition Albumin 3.1 Started dietary supplementation #Obesity #Weight loss counseling #Exercise counseling - BMI 33.2 - Counseled patient on the importance of weight loss, incorporating exercise, and dietary changes (lean meats, fresh fruits and vegetables, and water intake). Patient expresses understanding. - Time: +15 min #Advanced care planning -Disease education conducted, care plan discussed, diagnoses discussed, prognosis discussed, and patient acknowledges understanding with care plan -Time: +30 min Disposition Plan: Continue medical management Total Time Spent with Patient (Minutes): 45 minutes History Interval history: Unable to obtain MRI brain with contrast given patient's agitation. Hospitalist Physical - Constitutional Vitals: Temp Pulse Resp BP Pulse Ox 97.5 F L 91 H 18 168/88 100 01/25/22 03:34 01/25/22 05:34 01/25/22 03:34 01/25/22 05:34 01/25/22 03:34 General appearance: Present: no acute distress, well-nourished, obese, other (Mild dysphagia) - EENT Eyes: Present: PERRL, EOM intact ENT: hearing intact, clear oral mucosa, dentition normal - Neck Neck: Present: supple, normal ROM - Respiratory Respiratory effort: normal Respiratory: bilateral: CTA - Cardiovascular Rhythm: regular Heart Sounds: Present: S1 & S2 - Extremities Extremities: no ischemia, pulses intact, pulses symmetrical, No edema, normal temperature, normal color Peripheral Pulses: within normal limits - Abdominal General gastrointestinal: soft, non-tender, non-distended, normal bowel sounds - Integumentary Integumentary: Present: clear, warm, dry - Psychiatric Psychiatric: agitated - Neurologic Neurologic: CNII-XII intact, moves all extremities - Allied Health Allied health notes reviewed: nursing HEART Score - HEART Score Troponin: Troponin T 0.020 ng/mL (0.00-0.029) 01/22/22 19:28 Results - Labs CBC & Chem 7: 01/24/22 04:36 01/24/22 04:36 Labs: Laboratory Last Values WBC 10.7 K/mm3 (4.5-11.0) 01/24/22 04:36 RBC 4.24 M/mm3 (3.65-5.03) 01/24/22 04:36 Hgb 10.7 gm/dl (10.1-14.3) 01/24/22 04:36 Hct 33.7 % (30.3-42.9) 01/24/22 04:36 MCV 80 fl (79-97) 01/24/22 04:36 MCH 25 pg (28-32) L 01/24/22 04:36 MCHC 32 % (30-34) 01/24/22 04:36 RDW 15.5 % (13.2-15.2) H 01/24/22 04:36 Plt Count 428 K/mm3 (140-440) 01/24/22 04:36 Lymph % (Auto) 15.0 % (13.4-35.0) 01/24/22 04:36 [place] % (Auto) 10.8 % (0.0-7.3) H 01/24/22 04:36 Eos % (Auto) 1.3 % (0.0-4.3) 01/24/22 04:36 Baso % (Auto) 0.4 % (0.0-1.8) 01/24/22 04:36 Lymph # (Auto) 1.6 K/mm3 (1.2-5.4) 01/24/22 04:36 [place] # (Auto) 1.2 K/mm3 (0.0-0.8) H 01/24/22 04:36 Eos # (Auto) 0.1 K/mm3 (0.0-0.4) 01/24/22 04:36 Baso # (Auto) 0.0 K/mm3 (0.0-0.1) 01/24/22 04:36 Seg Neutrophils % 72.5 % (40.0-70.0) H 01/24/22 04:36 Seg Neutrophils # 7.8 K/mm3 (1.8-7.7) H 01/24/22 04:36 PT 12.4 Sec. (12.2-14.9) 01/22/22 19:28 INR 0.84 (0.87-1.13) L 01/22/22 19:28 APTT 26.4 Sec. (24.2-36.6) 01/22/22 19:28 VBG pH 7.398 (7.320-7.420) 01/22/22 19:28 Sodium 136 mmol/L (137-145) L 01/24/22 04:36 Potassium 4.6 mmol/L (3.6-5.0) 01/24/22 04:36 Chloride 99.7 mmol/L (98-107) 01/24/22 04:36 Carbon Dioxide 24 mmol/L (22-30) 01/24/22 04:36 Anion Gap 17 mmol/L 01/24/22 04:36 BUN 13 mg/dL (7-17) 01/24/22 04:36 Creatinine 1.0 mg/dL (0.6-1.2) 01/24/22 04:36 Estimated GFR > 60 ml/min 01/24/22 04:36 BUN/Creatinine Ratio 13 % 01/24/22 04:36 Glucose 159 mg/dL (65-100) H 01/24/22 04:36 POC Glucose 142 mg/dL (70-105) H 01/25/22 06:33 Hemoglobin A1c 13.2 % (4-6) H 01/24/22 04:36 Calcium 9.1 mg/dL (8.4-10.2) 01/24/22 04:36 Magnesium 1.40 mg/dL (1.7-2.3) L 01/22/22 19:28 Iron 20 ug/dL (37-170) L 01/24/22 04:36 TIBC 154 mcg/dL (250-450) L 01/24/22 04:36 Ferritin 169.9 ng/mL (10.0-200.0) 01/24/22 04:36 Total Bilirubin 0.30 mg/dL (0.1-1.2) 01/22/22 19:28 AST 15 units/L (5-40) 01/22/22 19:28 ALT 14 units/L (7-56) 01/22/22 19:28 Alkaline Phosphatase 197 units/L (35-129) H 01/22/22 19:28 Ammonia 17.0 umol/L (25-60) L 01/22/22 19:28 Total Creatine Kinase 109 units/L (30-135) 01/22/22 19:28 CK-MB (CK-2) 4.9 ng/mL (0.0-4.0) H 01/22/22 19:28 CK-MB (CK-2) Rel Index 4.4 (0-4) H 01/22/22 19:28 Troponin T 0.020 ng/mL (0.00-0.029) 01/22/22 19:28 Total Protein 7.4 g/dL (6.3-8.2) 01/22/22 19:28 Albumin 3.1 g/dL (3.9-5) L 01/22/22 19:28 Albumin/Globulin Ratio 0.7 % 01/22/22 19:28 Triglycerides 43 mg/dL (2-149) 01/23/22 04:26 Cholesterol 139 mg/dL (50-199) 01/23/22 04:26 LDL Cholesterol Direct 68 mg/dL (50-130) 01/23/22 04:26 HDL Cholesterol 75 mg/dL (40-59) H 01/23/22 04:26 Cholesterol/HDL Ratio 1.85 % 01/23/22 04:26 TSH 1.110 mlU/mL (0.270-4.200) 01/24/22 04:36 Free T4 1.32 ng/dL (0.76-1.46) 01/22/22 19:28 Salicylates < 0.3 mg/dL (2.8-20.0) L 01/22/22 19:28 Plasma/Serum Alcohol < 0.01 % (0-0.07) 01/22/22 19:28 Blood Type O POSITIVE 01/22/22 19:28 Antibody Screen Negative 01/22/22 19:28 Chase/IV: Voiding Method Condom Catheter Active Medications - Current Medications Current Medications: Generic Name Dose Route Start Last Admin Trade Name Freq PRN Reason Stop Dose Admin Acetaminophen 650 mg 01/22/22 23:54 Acetaminophen 325 Mg Tab PO Q4H PRN Pain MILD(1-3)/Fever >100.5/VANEGAS Albuterol 2.5 mg 01/22/22 23:54 Albuterol 2.5 Mg/3 Ml Nebu IH Q3HRT PRN Shortness Of Breath Aspirin 81 mg 01/24/22 10:00 01/24/22 11:47 Aspirin 81 Mg Tab Chew PO 81 mg QDAY FABIO Administration Atorvastatin Calcium 40 mg 01/23/22 22:00 01/24/22 21:55 Atorvastatin 40 Mg Tab PO 40 mg QHS FABIO Administration Carvedilol 12.5 mg 01/25/22 10:00 Carvedilol 12.5 Mg Tab PO BID FABIO Dextrose 0 ml 01/22/22 23:56 Dextrose 50% In Water (25gm) 50 Ml Syringe IV Q30MIN PRN Hypoglycemia Protocol Famotidine 20 mg 01/23/22 10:00 01/24/22 21:55 Famotidine 20 Mg/2 Ml Inj IV 20 mg BID FABIO Administration Levetiracetam 1,000 mg/ 110 mls @ 400 mls/hr 01/23/22 22:00 01/24/22 21:54 Dextrose IV 400 mls/hr Q12HR FABIO Administration Ferric Sodium Gluconate 110 mls @ 100 mls/hr 01/25/22 09:00 Complex 125 mg/ Sodium IV 01/25/22 10:05 Chloride ONCE ONE Insulin Human Lispro 0 unit 01/23/22 00:00 01/25/22 06:36 Insulin Lispro 100 Unit/Ml SUB-Q Not Given Q6HR [facility] Protocol Labetalol HCl 10 mg 01/22/22 23:56 Labetalol 20 Mg/4 Ml Inj IV Q5MIN PRN to maintain SBP < 180 Lorazepam 2 mg 01/23/22 10:00 01/23/22 09:58 Lorazepam 2 Mg/Ml Vial IV 2 mg Q6H PRN Administration Agitation Losartan Potassium 100 mg 01/25/22 10:00 Losartan 50 Mg Tab PO QDAY FABIO Morphine Sulfate 2 mg 01/22/22 23:54 Morphine 2 Mg/1 Ml Inj IV Q4H PRN Pain, Moderate (4-6) Morphine Sulfate 4 mg 01/22/22 23:54 Morphine 4 Mg/1 Ml Inj IV Q4H PRN Pain , Severe (7-10) Ondansetron HCl 4 mg 01/22/22 23:54 Ondansetron 4 Mg/2 Ml Inj IV Q8H PRN Nausea And Vomiting Sodium Chloride 10 ml 01/23/22 10:00 01/24/22 21:55 Sodium Chloride 0.9% 10 Ml Flush Syringe IV 10 ml BID FABIO Administration Sodium Chloride 10 ml 01/22/22 23:54 Sodium Chloride 0.9% 10 Ml Flush Syringe IV PRN PRN LINE FLUSH Nutrition/Malnutrition Assess - Dietary Evaluation Nutrition/Malnutrition Findings: Nutrition Notes Start: 01/23/22 14:57 Freq: Status: Active Protocol: Document 01/23/22 14:57 SUJATHA (Rec: 01/23/22 15:07 SUJATHA [id number]) Nutrition Notes Need for Assessment generated from: MD Order,Education Initial or Follow up Brief Note Current Diagnosis Diabetes,Hypertension, Malnutrition,Stroke Other Pertinent Diagnosis Brain Lesion, R-Humerus Fracture, Metabolic Encephalopathy, Seizure, Anemia Current Diet NPO (since admission). Height 5 ft Weight 77.2 kg [place] Body Weight (kg) 45.45 BMI 33.2 Intake Prior to Admission Good Weight change and time frame Pt denies having loss body weight [employer]. Weight Status Obese Subjective/Other Information RD consult for nutrition education assessment. Pt currently on NPO. Pt is on Room Air, O2 saturation @ 100%, according to Vital Signs notes. Pt still in critical condition , not a candidate for Nutrition Education at the time, will assess feasibility on F/U. Percent of energy/protein needs met: Pt currently on NPO. Nutrition Intervention Follow-Up By: 01/30/22 Additional Comments Nutrition education will be provided at F/U, if feasible. Continue monitoring food tolerance, %PO intake of meals , and BM.
[2022-01-25] MEDS ORDERED: SODIUM FERRIC GLUCON/SUCRO 125 MG in SODIUM CHLORIDE 0.9% 100 ML IV ONE (09:00)
[2022-01-25] MEDS: ASPIRIN 81 MG TAB CHEW PO SCH (09:45)
[2022-01-25] MEDS: FAMOTIDINE 20 MG/2 ML INJ IV SCH ×2 (09:46→21:41)
[2022-01-25] MEDS: carvediloL 12.5 MG TAB PO SCH ×2 (09:46→21:42)
[2022-01-25] MEDS: levETIRAcetam 1,000 MG in DEXTROSE 5% IN WATER 100 ML IV SCH ×2 (09:46→21:41)
[2022-01-25] MEDS: LOSARTAN 50 MG TAB PO SCH (09:51)
[2022-01-25] MEDS: MORPHINE 2 MG/1 ML INJ IV PRN (13:38)
[2022-01-25] MEDS ORDERED: DEXTROSE 50% IN WATER (25GM) 50 ML SYRINGE IV PRN (14:00)
[2022-01-25] MEDS: INSULIN NPH/REGULAR 70/30 INJ SUB-Q SCH ×2 (15:47→17:17)
[2022-01-25] MEDS: INSULIN REGULAR, HUMAN 100 UNITS/1 ML SUB-Q SCH ×2 (15:48→22:45)
[2022-01-25] MEDS: ACETAMINOPHEN 325 MG TAB PO PRN (21:41)
[2022-01-25] MEDS: LORazepam 2 MG/ML VIAL IV PRN (23:20)
[2022-01-26] MEDS: INSULIN REGULAR, HUMAN 100 UNITS/1 ML SUB-Q SCH ×4 (08:30→22:38)
[2022-01-26] MEDS: INSULIN NPH/REGULAR 70/30 INJ SUB-Q SCH ×3 (09:12→17:25)
--- NOTE | 2022-01-26 09:35 | Progress Note ---
Assessment and Plan Assessment and plan: #Acute metabolic encephalopathyresolved #Acute ischemic CVA #Seizure disorder #Brain lesion CT head noncontrast revealing "a low attenuation lesion with hyperdensity around his present centered near the head of caudate nucleus on the right. This produces mild mass-effect with compression of the adjacent frontal horn of the right lateral ventricle. Small amount of increased attenuation matter at the posterior inferior margin of the lesion may represent calcification or small amount of hemorrhage. Considerations include brain neoplasia and abscess. Further evaluation with MRI brain to be performed without and with intravenous contrast material is advised." MRI brain without contrast "findings correlate with earlier CT demonstrating a lesion centered within the head of the right caudate measuring approximately 1.3 cm in the greatest AP dimension. This finding demonstrates restricted diffusion and would appear most consistent with acute/subacute infarct. There appears to be a component of peripheral increased T1 weighted signal indication of laminar necrosis which also correlates with the CT incompatible more subacute process." Pending MRI brain with contrast; multiple attempts were made on 01/23/2022. Patient remained agitated and would not allow completion of the full exam/image. Pending TTE read. Neurology consulted; appreciate recs Neurosurgery consulted; appreciate recs Transition from IV Keppra 1000 mg every 12 hours to p.o. 750 mg every 12 hours. Physical therapy and Occupational Therapy consulted; pending recs Continue aspirin 81 mg daily , Plavix 75mg daily and atorvastatin 40mg daily per stroke protocol. Hemoglobin A1c 13.2. Lipid profile: Triglycerides 43, cholesterol 139, LDL 68, HDL 75 Continue to monitor #Closed fracture of left proximal humerus Continue to closely monitor as patient can follow-up with orthopedic surgery in outpatient setting. #Hypertension - home medications: None - current medications: Losartan 100 mg daily, Coreg 12.5 mg p.o. daily - SBP goal <160 and DBP goal <90 while inpatient - continue to monitor #Non-insulin dependent type II diabetes mellitus with hyperglycemia - hemoglobin A1c: 13.2 - home regimen: Metformin 500 mg twice daily - current regimen: Moderate SSI + NPH 70/30 15 units twice daily + metformin 1000 mg twice daily - blood glucose goal 140-180 while inpatient - continue to monitor #Iron deficiency anemia Hemoglobin 9.1 Iron 20, TIBC 154, ferritin 170. Ordering IV Ferrlecit 125 x1 (01/25/2022) Transfuse if hemoglobin <7 or patient becomes symptomatic. #Mild protein caloric malnutrition Albumin 3.1 Continue dietary supplementation #Obesity #Weight loss counseling #Exercise counseling - BMI 33.2 - Counseled patient on the importance of weight loss, incorporating exercise, and dietary changes (lean meats, fresh fruits and vegetables, and water intake). Patient expresses understanding. - Time: +15 min #Advanced care planning -Disease education conducted, care plan discussed, diagnoses discussed, prognosis discussed, and patient acknowledges understanding with care plan -Time: +30 min #Discharge planning - Patient is pending TTE read, MRI brain with contrast, and PT/OT final recommendations - Case management has been made aware. - Discharge is tentatively 48 to 72 hours Disposition Plan: Continue medical management Total Time Spent with Patient (Minutes): 45 minutes History Interval history: No acute events over night. The patient denies fevers, chills, nausea, vomiting, abdominal pain, chest pain/pressure, shortness of breath, urinary symptoms, weakness, or confusion. Hospitalist Physical - Constitutional Vitals: Temp Pulse Resp BP Pulse Ox 97.8 F 86 18 171/85 97 01/26/22 08:31 01/26/22 08:31 01/26/22 08:31 01/26/22 08:31 01/26/22 08:31 General appearance: Present: no acute distress, well-nourished, obese, other (Mild dysphagia) - EENT Eyes: Present: PERRL, EOM intact ENT: hearing intact, clear oral mucosa, dentition normal - Neck Neck: Present: supple, normal ROM - Respiratory Respiratory effort: normal Respiratory: bilateral: CTA - Cardiovascular Rhythm: regular Heart Sounds: Present: S1 & S2 - Extremities Extremities: no ischemia, pulses intact, No edema, normal temperature, normal color Peripheral Pulses: within normal limits - Abdominal General gastrointestinal: soft, non-tender, non-distended, normal bowel sounds - Integumentary Integumentary: Present: clear, warm, dry - Psychiatric Psychiatric: appropriate mood/affect, memory intact, cooperative - Neurologic Neurologic: CNII-XII intact, other (Left-sided weakness of upper and lower extremities) - Allied Health Allied health notes reviewed: nursing HEART Score - HEART Score Troponin: Troponin T 0.020 ng/mL (0.00-0.029) 01/22/22 19:28 Results - Labs CBC & Chem 7: 01/24/22 04:36 01/24/22 04:36 Labs: Laboratory Last Values WBC 10.7 K/mm3 (4.5-11.0) 01/24/22 04:36 RBC 4.24 M/mm3 (3.65-5.03) 01/24/22 04:36 Hgb 10.7 gm/dl (10.1-14.3) 01/24/22 04:36 Hct 33.7 % (30.3-42.9) 01/24/22 04:36 MCV 80 fl (79-97) 01/24/22 04:36 MCH 25 pg (28-32) L 01/24/22 04:36 MCHC 32 % (30-34) 01/24/22 04:36 RDW 15.5 % (13.2-15.2) H 01/24/22 04:36 Plt Count 428 K/mm3 (140-440) 01/24/22 04:36 Lymph % (Auto) 15.0 % (13.4-35.0) 01/24/22 04:36 [place] % (Auto) 10.8 % (0.0-7.3) H 01/24/22 04:36 Eos % (Auto) 1.3 % (0.0-4.3) 01/24/22 04:36 Baso % (Auto) 0.4 % (0.0-1.8) 01/24/22 04:36 Lymph # (Auto) 1.6 K/mm3 (1.2-5.4) 01/24/22 04:36 [place] # (Auto) 1.2 K/mm3 (0.0-0.8) H 01/24/22 04:36 Eos # (Auto) 0.1 K/mm3 (0.0-0.4) 01/24/22 04:36 Baso # (Auto) 0.0 K/mm3 (0.0-0.1) 01/24/22 04:36 Seg Neutrophils % 72.5 % (40.0-70.0) H 01/24/22 04:36 Seg Neutrophils # 7.8 K/mm3 (1.8-7.7) H 01/24/22 04:36 PT 12.4 Sec. (12.2-14.9) 01/22/22 19:28 INR 0.84 (0.87-1.13) L 01/22/22 19:28 APTT 26.4 Sec. (24.2-36.6) 01/22/22 19:28 VBG pH 7.398 (7.320-7.420) 01/22/22 19:28 Sodium 136 mmol/L (137-145) L 01/24/22 04:36 Potassium 4.6 mmol/L (3.6-5.0) 01/24/22 04:36 Chloride 99.7 mmol/L (98-107) 01/24/22 04:36 Carbon Dioxide 24 mmol/L (22-30) 01/24/22 04:36 Anion Gap 17 mmol/L 01/24/22 04:36 BUN 13 mg/dL (7-17) 01/24/22 04:36 Creatinine 1.0 mg/dL (0.6-1.2) 01/24/22 04:36 Estimated GFR > 60 ml/min 01/24/22 04:36 BUN/Creatinine Ratio 13 % 01/24/22 04:36 Glucose 159 mg/dL (65-100) H 01/24/22 04:36 POC Glucose 194 mg/dL (70-105) H 01/26/22 08:35 Hemoglobin A1c 13.2 % (4-6) H 01/24/22 04:36 Calcium 9.1 mg/dL (8.4-10.2) 01/24/22 04:36 Magnesium 1.40 mg/dL (1.7-2.3) L 01/22/22 19:28 Iron 20 ug/dL (37-170) L 01/24/22 04:36 TIBC 154 mcg/dL (250-450) L 01/24/22 04:36 Ferritin 169.9 ng/mL (10.0-200.0) 01/24/22 04:36 Total Bilirubin 0.30 mg/dL (0.1-1.2) 01/22/22 19:28 AST 15 units/L (5-40) 01/22/22 19:28 ALT 14 units/L (7-56) 01/22/22 19:28 Alkaline Phosphatase 197 units/L (35-129) H 01/22/22 19:28 Ammonia 17.0 umol/L (25-60) L 01/22/22 19:28 Total Creatine Kinase 109 units/L (30-135) 01/22/22 19:28 CK-MB (CK-2) 4.9 ng/mL (0.0-4.0) H 01/22/22 19:28 CK-MB (CK-2) Rel Index 4.4 (0-4) H 01/22/22 19:28 Troponin T 0.020 ng/mL (0.00-0.029) 01/22/22 19:28 Total Protein 7.4 g/dL (6.3-8.2) 01/22/22 19:28 Albumin 3.1 g/dL (3.9-5) L 01/22/22 19: Albumin/Globulin Ratio 0.7 % 01/22/22 19: Triglycerides 43 mg/dL (2-149) 01/23/22 04:26 Cholesterol 139 mg/dL (50-199) 01/23/22 04:26 LDL Cholesterol Direct 68 mg/dL (50-130) 01/23/22 04:26 HDL Cholesterol 75 mg/dL (40-59) H 01/23/22 04:26 Cholesterol/HDL Ratio 1.85 % 01/23/22 04:26 TSH 1.110 mlU/mL (0.270-4.200) 01/24/22 04:36 Free T4 1.32 ng/dL (0.76-1.46) 01/22/22 19: Salicylates < 0.3 mg/dL (2.8-20.0) L 01/22/22 19: Plasma/Serum Alcohol < 0.01 % (0-0.07) 01/22/22 19:28 Blood Type O POSITIVE 01/22/22 19: Antibody Screen Negative 01/22/22 19:28 Chase/IV: Voiding Method External Female Catheter Active Medications - Current Medications Current Medications: Generic Name Dose Route Start Last Admin Trade Name Freq PRN Reason Stop Dose Admin Acetaminophen 650 mg 01/22/22 23:54 01/25/22 21:41 Acetaminophen 325 Mg Tab PO 650 mg Q4H PRN Administration Pain MILD(1-3)/Fever >100.5/VANEGAS Albuterol 2.5 mg 01/22/22 23:54 Albuterol 2.5 Mg/3 Ml Nebu IH Q3HRT PRN Shortness Of Breath Aspirin 81 mg 01/24/22 10:00 01/25/22 09:45 Aspirin 81 Mg Tab Chew PO 81 mg QDAY FABIO Administration Atorvastatin Calcium 40 mg 01/23/22 22:00 01/25/22 21:41 Atorvastatin 40 Mg Tab PO 40 mg QHS FABIO Administration Carvedilol 12.5 mg 01/25/22 10:00 01/25/22 21:42 Carvedilol 12.5 Mg Tab PO 12.5 mg BID FABIO Administration Dextrose 50 ml 01/25/22 14:00 Dextrose 50% In Water (25gm) 50 Ml Syringe IV Q30MIN PRN Hypoglycemia Protocol Famotidine 20 mg 01/23/22 10:00 01/25/22 21:41 Famotidine 20 Mg/2 Ml Inj IV 20 mg BID FABIO Administration Insulin Human Isoph/Insulin Regular 15 unit 01/25/22 14:00 01/26/22 09:12 Insulin Nph/Regular 70/30 Inj SUB-Q 15 unit BIDDIAB FABIO Administration Insulin Human Regular 0 units 01/25/22 16:30 01/25/22 22:45 Insulin Regular, Human 100 Units/1 Ml SUB-Q 4 units ACHS FABIO Administration Protocol Lorazepam 2 mg 01/23/22 10:00 01/25/22 23:20 Lorazepam 2 Mg/Ml Vial IV 2 mg Q6H PRN Administration Agitation Losartan Potassium 100 mg 01/25/22 10:00 01/25/22 09:51 Losartan 50 Mg Tab PO 100 mg QDAY FABIO Administration Metformin HCl 1,000 mg 01/26/22 17:00 Metformin 500 Mg Tab PO BIDDIAB FABIO Morphine Sulfate 2 mg 01/22/22 23:54 01/25/22 13:38 Morphine 2 Mg/1 Ml Inj IV 2 mg Q4H PRN Administration Pain, Moderate (4-6) Morphine Sulfate 4 mg 01/22/22 23:54 Morphine 4 Mg/1 Ml Inj IV Q4H PRN Pain , Severe (7-10) Ondansetron HCl 4 mg 01/22/22 23:54 Ondansetron 4 Mg/2 Ml Inj IV Q8H PRN Nausea And Vomiting Sodium Chloride 10 ml 01/23/22 10:00 01/25/22 21:42 Sodium Chloride 0.9% 10 Ml Flush Syringe IV 10 ml BID FABIO Administration Sodium Chloride 10 ml 01/22/22 23:54 Sodium Chloride 0.9% 10 Ml Flush Syringe IV PRN PRN LINE FLUSH Nutrition/Malnutrition Assess - Dietary Evaluation Nutrition/Malnutrition Findings: Nutrition Notes Start: 01/23/22 14:57 Freq: Status: Active Protocol: Document 01/23/22 14:57 SUJATHA (Rec: 01/23/22 15:07 SUJATHA [id number]) Nutrition Notes Need for Assessment generated from: MD Order,Education Initial or Follow up Brief Note Current Diagnosis Diabetes,Hypertension, Malnutrition,Stroke Other Pertinent Diagnosis Brain Lesion, R-Humerus Fracture, Metabolic Encephalopathy, Seizure, Anemia Current Diet NPO (since admission). Height 5 ft Weight 77.2 kg [place] Body Weight (kg) 45.45 BMI 33.2 Intake Prior to Admission Good Weight change and time frame Pt denies having loss body weight [employer]. Weight Status Obese Subjective/Other Information RD consult for nutrition education assessment. Pt currently on NPO. Pt is on Room Air, O2 saturation @ 100%, according to Vital Signs notes. Pt still in critical condition , not a candidate for Nutrition Education at the time, will assess feasibility on F/U. Percent of energy/protein needs met: Pt currently on NPO. Nutrition Intervention Follow-Up By: 01/30/22 Additional Comments Nutrition education will be provided at F/U, if feasible. Continue monitoring food tolerance, %PO intake of meals , and BM.
[2022-01-26] MEDS: LOSARTAN 50 MG TAB PO SCH (11:08)
[2022-01-26] MEDS: ASPIRIN 81 MG TAB CHEW PO SCH (11:08)
[2022-01-26] MEDS: levETIRAcetam 500 MG TAB PO SCH ×2 (11:09→22:36)
[2022-01-26] MEDS: carvediloL 12.5 MG TAB PO SCH ×2 (11:09→22:37)
[2022-01-26] MEDS: FAMOTIDINE 20 MG/2 ML INJ IV SCH (11:09)
[2022-01-26] MEDS: metFORMIN 500 MG TAB PO SCH (17:13)
[2022-01-26] MEDS: FAMOTIDINE 20 MG TAB PO SCH (22:40)
[2022-01-27] MEDS: LORazepam 2 MG/ML VIAL IV PRN (02:06)
[2022-01-27] MEDS: MORPHINE 2 MG/1 ML INJ IV PRN ×2 (02:51→21:55)
--- NOTE | 2022-01-27 04:21 | Progress Note ---
Assessment and Plan Assessment and plan: #Acute metabolic encephalopathyresolved #Acute ischemic CVA #Seizure disorder #Brain lesion CT head noncontrast revealing "a low attenuation lesion with hyperdensity around his present centered near the head of caudate nucleus on the right. This produces mild mass-effect with compression of the adjacent frontal horn of the right lateral ventricle. Small amount of increased attenuation matter at the posterior inferior margin of the lesion may represent calcification or small amount of hemorrhage. Considerations include brain neoplasia and abscess. Further evaluation with MRI brain to be performed without and with intravenous contrast material is advised." MRI brain without contrast "findings correlate with earlier CT demonstrating a lesion centered within the head of the right caudate measuring approximately 1.3 cm in the greatest AP dimension. This finding demonstrates restricted diffusion and would appear most consistent with acute/subacute infarct. There appears to be a component of peripheral increased T1 weighted signal indication of laminar necrosis which also correlates with the CT incompatible more subacute process." Pending MRI brain with contrast; multiple attempts were made on 01/23/2022. Patient remained agitated and would not allow completion of the full exam/image. TTE reveals EF 50-55% with normal-sized LV, normal LV systolic function, mild concentric LVH, mild diastolic dysfunction, and unremarkable for PFO. Neurology consulted; appreciate recs Neurosurgery consulted; appreciate recs Transition from IV Keppra 1000 mg every 12 hours to p.o. 750 mg every 12 hours. Physical therapy and Occupational Therapy consulted; pending recs Continue aspirin 81 mg daily , Plavix 75mg daily and atorvastatin 40mg daily per stroke protocol. Hemoglobin A1c 13.2. Lipid profile: Triglycerides 43, cholesterol 139, LDL 68, HDL 75 Continue to monitor #Closed fracture of left proximal humerus Continue to closely monitor as patient can follow-up with orthopedic surgery in outpatient setting. #Hypertension - home medications: None - current medications: Losartan 100 mg daily, Coreg 12.5 mg p.o. daily - SBP goal <160 and DBP goal <90 while inpatient - continue to monitor #Non-insulin dependent type II diabetes mellitus with hyperglycemia - hemoglobin A1c: 13.2 - home regimen: Metformin 500 mg twice daily - current regimen: Moderate SSI + NPH 70/30 15 units twice daily + metformin 1000 mg twice daily - blood glucose goal 140-180 while inpatient - continue to monitor #Iron deficiency anemia Hemoglobin 9.1 Iron 20, TIBC 154, ferritin 170. Ordered IV Ferrlecit 125 x1 (01/25/2022) Transfuse if hemoglobin <7 or patient becomes symptomatic. #Mild protein caloric malnutrition Albumin 3.1 Continue dietary supplementation #Obesity #Weight loss counseling #Exercise counseling - BMI 33.2 - Counseled patient on the importance of weight loss, incorporating exercise, and dietary changes (lean meats, fresh fruits and vegetables, and water intake). Patient expresses understanding. - Time: +15 min #Advanced care planning -Disease education conducted, care plan discussed, diagnoses discussed, prognosis discussed, and patient acknowledges understanding with care plan -Time: +30 min #Discharge planning - Patient is pending MRI brain with contrast and PT/OT final recommendations - Case management has been made aware. - Discharge is tentatively 48 to 72 hours Disposition Plan: Continue medical management Total Time Spent with Patient (Minutes): 45 min History Interval history: No acute events over night. The patient denies fevers, chills, nausea, vomiting, abdominal pain, chest pain/pressure, shortness of breath, urinary symptoms, weakness, or confusion. Hospitalist Physical - Constitutional Vitals: Temp Pulse Resp BP Pulse Ox 97.6 F 70 16 122/67 100 01/27/22 04:15 01/27/22 04:15 01/27/22 04:15 01/27/22 04:15 01/27/22 04:15 General appearance: Present: no acute distress, well-nourished, obese, other (Mild dysphagia) - EENT Eyes: Present: PERRL, EOM intact ENT: hearing intact, clear oral mucosa, dentition normal - Neck Neck: Present: supple, normal ROM - Respiratory Respiratory effort: normal Respiratory: bilateral: CTA - Cardiovascular Rhythm: regular Heart Sounds: Present: S1 & S2 - Extremities Extremities: no ischemia, pulses intact, pulses symmetrical, No edema, normal temperature, normal color Peripheral Pulses: within normal limits - Abdominal General gastrointestinal: soft, non-tender, non-distended, normal bowel sounds - Integumentary Integumentary: Present: clear, warm, dry - Psychiatric Psychiatric: appropriate mood/affect, intact judgment & insight, memory intact, cooperative - Neurologic Neurologic: CNII-XII intact, moves all extremities - Allied Health Allied health notes reviewed: nursing HEART Score - HEART Score Troponin: Troponin T 0.020 ng/mL (0.00-0.029) 01/22/22 19:28 Results - Labs CBC & Chem 7: 01/24/22 04:36 01/24/22 04:36 Labs: Laboratory Last Values WBC 10.7 K/mm3 (4.5-11.0) 01/24/22 04:36 RBC 4.24 M/mm3 (3.65-5.03) 01/24/22 04:36 Hgb 10.7 gm/dl (10.1-14.3) 01/24/22 04:36 Hct 33.7 % (30.3-42.9) 01/24/22 04:36 MCV 80 fl (79-97) 01/24/22 04:36 MCH 25 pg (28-32) L 01/24/22 04:36 MCHC 32 % (30-34) 01/24/22 04:36 RDW 15.5 % (13.2-15.2) H 01/24/22 04:36 Plt Count 428 K/mm3 (140-440) 01/24/22 04:36 Lymph % (Auto) 15.0 % (13.4-35.0) 01/24/22 04:36 [place] % (Auto) 10.8 % (0.0-7.3) H 01/24/22 04:36 Eos % (Auto) 1.3 % (0.0-4.3) 01/24/22 04:36 Baso % (Auto) 0.4 % (0.0-1.8) 01/24/22 04:36 Lymph # (Auto) 1.6 K/mm3 (1.2-5.4) 01/24/22 04:36 [place] # (Auto) 1.2 K/mm3 (0.0-0.8) H 01/24/22 04:36 Eos # (Auto) 0.1 K/mm3 (0.0-0.4) 01/24/22 04:36 Baso # (Auto) 0.0 K/mm3 (0.0-0.1) 01/24/22 04:36 Seg Neutrophils % 72.5 % (40.0-70.0) H 01/24/22 04:36 Seg Neutrophils # 7.8 K/mm3 (1.8-7.7) H 01/24/22 04:36 PT 12.4 Sec. (12.2-14.9) 01/22/22 19:28 INR 0.84 (0.87-1.13) L 01/22/22 19:28 APTT 26.4 Sec. (24.2-36.6) 01/22/22 19:28 VBG pH 7.398 (7.320-7.420) 01/22/22 19:28 Sodium 136 mmol/L (137-145) L 01/24/22 04:36 Potassium 4.6 mmol/L (3.6-5.0) 01/24/22 04:36 Chloride 99.7 mmol/L (98-107) 01/24/22 04:36 Carbon Dioxide 24 mmol/L (22-30) 01/24/22 04:36 Anion Gap 17 mmol/L 01/24/22 04:36 BUN 13 mg/dL (7-17) 01/24/22 04:36 Creatinine 1.0 mg/dL (0.6-1.2) 01/24/22 04:36 Estimated GFR > 60 ml/min 01/24/22 04:36 BUN/Creatinine Ratio 13 % 01/24/22 04:36 Glucose 159 mg/dL (65-100) H 01/24/22 04:36 POC Glucose 135 mg/dL (70-105) H 01/26/22 19:42 Hemoglobin A1c 13.2 % (4-6) H 01/24/22 04:36 Calcium 9.1 mg/dL (8.4-10.2) 01/24/22 04:36 Magnesium 1.40 mg/dL (1.7-2.3) L 01/22/22 19:28 Iron 20 ug/dL (37-170) L 01/24/22 04:36 TIBC 154 mcg/dL (250-450) L 01/24/22 04:36 Ferritin 169.9 ng/mL (10.0-200.0) 01/24/22 04:36 Total Bilirubin 0.30 mg/dL (0.1-1.2) 01/22/22 19:28 AST 15 units/L (5-40) 01/22/22 19:28 ALT 14 units/L (7-56) 01/22/22 19:28 Alkaline Phosphatase 197 units/L (35-129) H 01/22/22 19:28 Ammonia 17.0 umol/L (25-60) L 01/22/22 19:28 Total Creatine Kinase 109 units/L (30-135) 01/22/22 19:28 CK-MB (CK-2) 4.9 ng/mL (0.0-4.0) H 01/22/22 19:28 CK-MB (CK-2) Rel Index 4.4 (0-4) H 01/22/22 19:28 Troponin T 0.020 ng/mL (0.00-0.029) 01/22/22 19:28 Total Protein 7.4 g/dL (6.3-8.2) 01/22/22 19:28 Albumin 3.1 g/dL (3.9-5) L 01/22/22 19: Albumin/Globulin Ratio 0.7 % 01/22/22 19:28 Triglycerides 43 mg/dL (2-149) 01/23/22 04:26 Cholesterol 139 mg/dL (50-199) 01/23/22 04:26 LDL Cholesterol Direct 68 mg/dL (50-130) 01/23/22 04:26 HDL Cholesterol 75 mg/dL (40-59) H 01/23/22 04:26 Cholesterol/HDL Ratio 1.85 % 01/23/22 04:26 TSH 1.110 mlU/mL (0.270-4.200) 01/24/22 04:36 Free T4 1.32 ng/dL (0.76-1.46) 01/22/22 19:28 Salicylates < 0.3 mg/dL (2.8-20.0) L 01/22/22 19:28 Plasma/Serum Alcohol < 0.01 % (0-0.07) 01/22/22 19:28 Blood Type O POSITIVE 01/22/22 19: Antibody Screen Negative 01/22/22 19:28 Chase/IV: Voiding Method External Female Catheter Active Medications - Current Medications Current Medications: Generic Name Dose Route Start Last Admin Trade Name Freq PRN Reason Stop Dose Admin Acetaminophen 650 mg 01/22/22 23:54 01/25/22 21:41 Acetaminophen 325 Mg Tab PO 650 mg Q4H PRN Administration Pain MILD(1-3)/Fever >100.5/VANEGAS Albuterol 2.5 mg 01/22/22 23:54 Albuterol 2.5 Mg/3 Ml Nebu IH Q3HRT PRN Shortness Of Breath Aspirin 81 mg 01/24/22 10:00 01/26/22 11:08 Aspirin 81 Mg Tab Chew PO 81 mg QDAY FABIO Administration Atorvastatin Calcium 40 mg 01/23/22 22:00 01/26/22 22:39 Atorvastatin 40 Mg Tab PO 40 mg QHS FABIO Administration Carvedilol 12.5 mg 01/25/22 10:00 01/26/22 22:37 Carvedilol 12.5 Mg Tab PO 12.5 mg BID FABIO Administration Dextrose 50 ml 01/25/22 14:00 Dextrose 50% In Water (25gm) 50 Ml Syringe IV Q30MIN PRN Hypoglycemia Protocol Famotidine 20 mg 01/26/22 22:00 01/26/22 22:40 Famotidine 20 Mg Tab PO 20 mg BID FABIO Administration Insulin Human Isoph/Insulin Regular 15 unit 01/25/22 14:00 01/26/22 17:25 Insulin Nph/Regular 70/30 Inj SUB-Q 15 unit BIDDIAB FABIO Administration Insulin Human Regular 0 units 01/25/22 16:30 01/26/22 22:38 Insulin Regular, Human 100 Units/1 Ml SUB-Q Not Given ACHS [facility] Protocol Levetiracetam 750 mg 01/26/22 10:00 01/26/22 22:36 Levetiracetam 500 Mg Tab PO 750 mg BID FABIO Administration Lorazepam 2 mg 01/23/22 10:00 01/27/22 02:06 Lorazepam 2 Mg/Ml Vial IV 2 mg Q6H PRN Administration Agitation Losartan Potassium 100 mg 01/25/22 10:00 01/26/22 11:08 Losartan 50 Mg Tab PO 100 mg QDAY FABIO Administration Metformin HCl 1,000 mg 01/26/22 17:00 01/26/22 17:13 Metformin 500 Mg Tab PO 1,000 mg BIDDIAB FABIO Administration Morphine Sulfate 2 mg 01/22/22 23:54 01/27/22 02:51 Morphine 2 Mg/1 Ml Inj IV 2 mg Q4H PRN Administration Pain, Moderate (4-6) Morphine Sulfate 4 mg 01/22/22 23:54 Morphine 4 Mg/1 Ml Inj IV Q4H PRN Pain , Severe (7-10) Ondansetron HCl 4 mg 01/22/22 23:54 Ondansetron 4 Mg/2 Ml Inj IV Q8H PRN Nausea And Vomiting Sodium Chloride 10 ml 01/23/22 10:00 01/26/22 22:40 Sodium Chloride 0.9% 10 Ml Flush Syringe IV 10 ml BID FABIO Administration Sodium Chloride 10 ml 01/22/22 23:54 Sodium Chloride 0.9% 10 Ml Flush Syringe IV PRN PRN LINE FLUSH Nutrition/Malnutrition Assess - Dietary Evaluation Nutrition/Malnutrition Findings: Nutrition Notes Start: 01/23/22 14:57 Freq: Status: Active Protocol: Document 01/23/22 14:57 SUJATHA (Rec: 01/23/22 15:07 SUJATHA [id number]) Nutrition Notes Need for Assessment generated from: MD Order,Education Initial or Follow up Brief Note Current Diagnosis Diabetes,Hypertension, Malnutrition,Stroke Other Pertinent Diagnosis Brain Lesion, R-Humerus Fracture, Metabolic Encephalopathy, Seizure, Anemia Current Diet NPO (since admission). 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 Weight Status Obese Subjective/Other Information RD consult for nutrition education assessment. Pt currently on NPO. Pt is on Room Air, O2 saturation @ 100%, according to [facility] notes. Pt still in critical condition , not a candidate for Nutrition Education at the time, will assess feasibility on F/U. Percent of energy/protein needs met: Pt currently on NPO. Nutrition Intervention Follow-Up By: 01/30/22 Additional Comments Nutrition education will be provided at F/U, if feasible. Continue monitoring food tolerance, %PO intake of meals , and BM.
[2022-01-27] MEDS: INSULIN REGULAR, HUMAN 100 UNITS/1 ML SUB-Q SCH ×4 (07:53→22:00)
[2022-01-27] MEDS: ASPIRIN 81 MG TAB CHEW PO SCH (09:45)
[2022-01-27] MEDS: INSULIN NPH/REGULAR 70/30 INJ SUB-Q SCH ×2 (09:45→16:31)
[2022-01-27] MEDS: levETIRAcetam 500 MG TAB PO SCH ×2 (09:45→21:54)
[2022-01-27] MEDS: metFORMIN 500 MG TAB PO SCH ×2 (09:46→16:30)
[2022-01-27] MEDS: LOSARTAN 50 MG TAB PO SCH (09:46)
[2022-01-27] MEDS: carvediloL 12.5 MG TAB PO SCH ×2 (09:46→21:55)
[2022-01-27] MEDS: FAMOTIDINE 20 MG TAB PO SCH ×2 (14:57→21:55)
[2022-01-28] MEDS: INSULIN REGULAR, HUMAN 100 UNITS/1 ML SUB-Q SCH ×4 (08:36→21:34)
[2022-01-28] MEDS: MORPHINE 2 MG/1 ML INJ IV PRN ×3 (09:15→21:35)
[2022-01-28] MEDS: FAMOTIDINE 20 MG TAB PO SCH ×2 (09:16→21:34)
[2022-01-28] MEDS: LOSARTAN 50 MG TAB PO SCH (09:16)
[2022-01-28] MEDS: ASPIRIN 81 MG TAB CHEW PO SCH (09:17)
[2022-01-28] MEDS: carvediloL 12.5 MG TAB PO SCH ×2 (09:17→21:34)
[2022-01-28] MEDS: levETIRAcetam 500 MG TAB PO SCH ×2 (09:17→21:35)
[2022-01-28] MEDS: INSULIN NPH/REGULAR 70/30 INJ SUB-Q SCH (09:18)
[2022-01-28] MEDS: metFORMIN 500 MG TAB PO SCH ×2 (09:18→17:04)
--- NOTE | 2022-01-28 12:31 | Discharge Summary ---
Providers - Providers Date of Admission: 01/22/22 23:54 Date of discharge: 01/28/22 Attending physician: MELANY ROCHA MD 01/22/22 21:54 Consult to Physician [CONS] Urgent Comment: Consulting Provider: ANATOLY ROSARIO II Physician Instructions: Reason For Exam: new brain lesion, ams seizure 01/22/22 23:54 Consult to Physician [CONS] Routine Comment: Consulting Provider: SOMMER DEVLIN Physician Instructions: Reason For Exam: Brain lesion 01/22/22 23:56 Consult to Dietitian/Nutrition [CONS] Routine Physician Instructions: Reason For Exam: Reason for Consult: Diet education Occupational Therapy Evaluate and Treat [CONS] Routine Comment: Reason For Exam: Neuro deficits Physical Therapy Evaluation and Treat [CONS] Routine Comment: Reason For Exam: Neuro deficits 01/23/22 21:02 Speech Therapy Evaluation and Treat [CONS] Routine Reason For Exam: Dysphagia after stroke Primary care physician: OLIVER FILTER OPERATOR Hospitalization Condition: Stable Disposition: 30 STILL A PATIENT Exam - Constitutional Vitals: Temp Pulse Resp BP Pulse Ox 98.2 F 77 14 132/62 99 01/28/22 12:00 01/28/22 12:09 01/28/22 09:13 01/28/22 12:00 01/28/22 12:00 Plan Care Plan Goals: Please start taking all medications as prescribed. Follow-up with your primary care provider within 1 week. Your diabetes is currently uncontrolled. Your hemoglobin A1c was 13%. You need to continue to take metformin and you have prescribed for you a second oral medication called glipizide. Please follow closely with your primary care provider as you may need insulin in the near future. Please follow-up with physical therapy. Follow up with: PRIMARY CARE, [Primary Care Provider] - 3-5 Days Prescriptions: AtorvaSTATin [Lipitor] 40 mg PO QHS 30 Days #30 tablet Aspirin [Aspirin BABY CHEW TAB] 81 mg PO QDAY 30 Days #30 tab.chew carvediloL [Coreg] 12.5 mg PO BID 30 Days #60 tablet Losartan [Cozaar] 100 mg PO QDAY 30 Days #30 tab levETIRAcetam [Keppra TAB] 750 mg PO BID 30 Days #60 tab Metformin HCl [metFORMIN] 1,000 mg PO BID 30 Days #60 tab
[2022-01-28] MEDS: INSULIN GLARGINE 100 UNITS/ML SUB-Q SCH (21:33)
[2022-01-29] MEDS: metFORMIN 500 MG TAB PO SCH ×2 (08:04→16:36)
[2022-01-29] MEDS: INSULIN REGULAR, HUMAN 100 UNITS/1 ML SUB-Q SCH ×4 (08:04→21:59)
[2022-01-29] MEDS: LOSARTAN 25 MG TAB PO SCH (09:17)
[2022-01-29] MEDS: levETIRAcetam 500 MG TAB PO SCH ×2 (09:17→21:48)
[2022-01-29] MEDS: ASPIRIN 81 MG TAB CHEW PO SCH (09:17)
[2022-01-29] MEDS: carvediloL 12.5 MG TAB PO SCH ×2 (09:17→21:46)
[2022-01-29] MEDS: FAMOTIDINE 20 MG TAB PO SCH ×2 (09:17→21:49)
--- NOTE | 2022-01-29 13:00 | Event Note ---
Date: 01/29/22 I was paged by RN after patient was found on the ground. I examined and saw the patient afterward. Patient reports sitting on the side of bed and attempting to get up. She slid down and is endorsing hitting her left arm. During examination arm was mildly tender to palpation. Will obtain x-ray at this time. Counseled patient on importance of not getting out of bed unassisted as she does need DME. We will follow-up with x-ray prior to discharge.
[2022-01-29] MEDS: MORPHINE 2 MG/1 ML INJ IV PRN (13:23)
--- NOTE | 2022-01-29 15:07 | XRay Report ---
Left forearm 1 view INDICATION: History of fracture FINDINGS: Radius and ulna appear intact no displaced fracture is definitely seen. Examination is limi camilo by 1 view. Additional views or CT/MRI could be performed for further evaluation Signer Name: Jonn Martinez MD Signed: 01/29/2022 3:02 PM Workstation Name: [id number]
[2022-01-29] MEDS ORDERED: oxyCODONE /ACETAMINOPHEN 5-325MG TAB PO ONE (17:30)
[2022-01-29] MEDS: INSULIN GLARGINE 100 UNITS/ML SUB-Q SCH (21:58)
[2022-01-30] MEDS: MORPHINE 2 MG/1 ML INJ IV PRN (04:16)
[2022-01-30] MEDS: INSULIN REGULAR, HUMAN 100 UNITS/1 ML SUB-Q SCH ×4 (06:57→21:16)
[2022-01-30] MEDS: metFORMIN 500 MG TAB PO SCH ×2 (08:12→17:20)
[2022-01-30] MEDS: FAMOTIDINE 20 MG TAB PO SCH ×2 (09:43→21:12)
[2022-01-30] MEDS: levETIRAcetam 500 MG TAB PO SCH ×2 (09:43→21:12)
[2022-01-30] MEDS: ASPIRIN 81 MG TAB CHEW PO SCH (09:43)
[2022-01-30] MEDS: carvediloL 12.5 MG TAB PO SCH ×2 (09:44→21:11)
[2022-01-30] MEDS: LOSARTAN 25 MG TAB PO SCH (09:46)
--- NOTE | 2022-01-30 12:25 | Progress Note ---
Assessment and Plan Assessment and plan: #Acute metabolic encephalopathyresolved #Acute ischemic CVA #Seizure disorder #Brain lesion CT head noncontrast revealing "a low attenuation lesion with hyperdensity around his present centered near the head of caudate nucleus on the right. This produces mild mass-effect with compression of the adjacent frontal horn of the right lateral ventricle. Small amount of increased attenuation matter at the posterior inferior margin of the lesion may represent calcification or small amount of hemorrhage. Considerations include brain neoplasia and abscess. Further evaluation with MRI brain to be performed without and with intravenous contrast material is advised." MRI brain without contrast "findings correlate with earlier CT demonstrating a lesion centered within the head of the right caudate measuring approximately 1.3 cm in the greatest AP dimension. This finding demonstrates restricted diffusion and would appear most consistent with acute/subacute infarct. There appears to be a component of peripheral increased T1 weighted signal indication of laminar necrosis which also correlates with the CT incompatible more subacute process." MRI brain with contrast: subacute infarct in R caudate TTE reveals EF 50-55% with normal-sized LV, normal LV systolic function, mild concentric LVH, mild diastolic dysfunction, and unremarkable for PFO. Neurology consulted; appreciate recs Neurosurgery consulted; appreciate recs Transition from IV Keppra 1000 mg every 12 hours to p.o. 750 mg every 12 hours. Physical therapy and Occupational Therapy consulted; recommending HH with PT Continue aspirin 81 mg daily , Plavix 75mg daily and atorvastatin 40mg daily per stroke protocol. Hemoglobin A1c 13.2. Lipid profile: Triglycerides 43, cholesterol 139, LDL 68, HDL 75 Continue to monitor #Closed fracture of left proximal humerus Continue to closely monitor as patient can follow-up with orthopedic surgery in outpatient setting. #Hypertension - home medications: None - current medications: Losartan 100 mg daily, Coreg 12.5 mg p.o. daily - SBP goal <160 and DBP goal <90 while inpatient - continue to monitor #Non-insulin dependent type II diabetes mellitus with hyperglycemia - hemoglobin A1c: 13.2 - home regimen: Metformin 500 mg twice daily - current regimen: Moderate SSI +Lantus 10 qhs + metformin 1000 mg twice daily - blood glucose goal 140-180 while inpatient - continue to monitor #Iron deficiency anemia Hemoglobin 9.1 Iron 20, TIBC 154, ferritin 170. Ordered IV Ferrlecit 125 x1 (01/25/2022) Transfuse if hemoglobin <7 or patient becomes symptomatic. #Mild protein caloric malnutrition Albumin 3.1 Continue dietary supplementation #Obesity #Weight loss counseling #Exercise counseling - BMI 33.2 - Counseled patient on the importance of weight loss, incorporating exercise, and dietary changes (lean meats, fresh fruits and vegetables, and water intake). Patient expresses understanding. - Time: +15 min #Advanced care planning -Disease education conducted, care plan discussed, diagnoses discussed, prognosis discussed, and patient acknowledges understanding with care plan -Time: +30 min #Discharge planning - plan to discharge patient home with home health PT services and DME - Case management has been made aware. History Interval history: Per nursing, patient got out of bed last night and fell. Patient reported no trauma to the head, only soreness all over her body. She denies chest pain and shortness of breath. She has no other complaints at this time. Hospitalist Physical - Physical exam Narrative exam: GENERAL: Well-developed well-nourished. In no acute distress. HEENT: Normocephalic. Atraumatic. NECK: Supple. CHEST/LUNGS: CTAB on room air HEART/CARDIOVASCULAR: RRR. No murmur, rubs or gallops appreciated. ABDOMEN: +BS. NT/ND. SKIN: No rashes noted. NEURO: No focal motor deficit. Follows all commands. MUSCULOSKELETAL: No joint effusion EXTREMITIES: No cyanosis, clubbing or edema. PSYCH: Cooperative. - Constitutional Vitals: Temp Pulse Resp BP Pulse Ox 98.4 F 74 18 118/71 100 01/30/22 08:27 01/30/22 09:46 01/30/22 08:27 01/30/22 09:46 01/30/22 08:27 General appearance: Present: no acute distress, well-nourished, obese, other (Mild dysphagia) HEART Score - HEART Score Troponin: Troponin T 0.020 ng/mL (0.00-0.029) 01/22/22 19:28 Results - Labs CBC & Chem 7: 01/24/22 04:36 01/24/22 04:36 Labs: Laboratory Last Values WBC 10.7 K/mm3 (4.5-11.0) 01/24/22 04:36 RBC 4.24 M/mm3 (3.65-5.03) 01/24/22 04:36 Hgb 10.7 gm/dl (10.1-14.3) 01/24/22 04:36 Hct 33.7 % (30.3-42.9) 01/24/22 04:36 MCV 80 fl (79-97) 01/24/22 04:36 MCH 25 pg (28-32) L 01/24/22 04:36 MCHC 32 % (30-34) 01/24/22 04:36 RDW 15.5 % (13.2-15.2) H 01/24/22 04:36 Plt Count 428 K/mm3 (140-440) 01/24/22 04:36 Lymph % (Auto) 15.0 % (13.4-35.0) 01/24/22 04:36 [place] % (Auto) 10.8 % (0.0-7.3) H 01/24/22 04:36 Eos % (Auto) 1.3 % (0.0-4.3) 01/24/22 04:36 Baso % (Auto) 0.4 % (0.0-1.8) 01/24/22 04:36 Lymph # (Auto) 1.6 K/mm3 (1.2-5.4) 01/24/22 04:36 [place] # (Auto) 1.2 K/mm3 (0.0-0.8) H 01/24/22 04:36 Eos # (Auto) 0.1 K/mm3 (0.0-0.4) 01/24/22 04:36 Baso # (Auto) 0.0 K/mm3 (0.0-0.1) 01/24/22 04:36 Seg Neutrophils % 72.5 % (40.0-70.0) H 01/24/22 04:36 Seg Neutrophils # 7.8 K/mm3 (1.8-7.7) H 01/24/22 04:36 PT 12.4 Sec. (12.2-14.9) 01/22/22 19:28 INR 0.84 (0.87-1.13) L 01/22/22 19:28 APTT 26.4 Sec. (24.2-36.6) 01/22/22 19:28 VBG pH 7.398 (7.320-7.420) 01/22/22 19:28 Sodium 136 mmol/L (137-145) L 01/24/22 04:36 Potassium 4.6 mmol/L (3.6-5.0) 01/24/22 04:36 Chloride 99.7 mmol/L (98-107) 01/24/22 04:36 Carbon Dioxide 24 mmol/L (22-30) 01/24/22 04:36 Anion Gap 17 mmol/L 01/24/22 04:36 BUN 13 mg/dL (7-17) 01/24/22 04:36 Creatinine 1.0 mg/dL (0.6-1.2) 01/24/22 04:36 Estimated GFR > 60 ml/min 01/24/22 04:36 BUN/Creatinine Ratio 13 % 01/24/22 04:36 Glucose 159 mg/dL (65-100) H 01/24/22 04:36 POC Glucose 147 mg/dL (70-105) H 01/30/22 11:29 Hemoglobin A1c 13.2 % (4-6) H 01/24/22 04:36 Calcium 9.1 mg/dL (8.4-10.2) 01/24/22 04:36 Magnesium 1.40 mg/dL (1.7-2.3) L 01/22/22 19:28 Iron 20 ug/dL (37-170) L 01/24/22 04:36 TIBC 154 mcg/dL (250-450) L 01/24/22 04:36 Ferritin 169.9 ng/mL (10.0-200.0) 01/24/22 04:36 Total Bilirubin 0.30 mg/dL (0.1-1.2) 01/22/22 19:28 AST 15 units/L (5-40) 01/22/22 19:28 ALT 14 units/L (7-56) 01/22/22 19:28 Alkaline Phosphatase 197 units/L (35-129) H 01/22/22 19:28 Ammonia 17.0 umol/L (25-60) L 01/22/22 19:28 Total Creatine Kinase 109 units/L (30-135) 01/22/22 19:28 CK-MB (CK-2) 4.9 ng/mL (0.0-4.0) H 01/22/22 19:28 CK-MB (CK-2) Rel Index 4.4 (0-4) H 01/22/22 19:28 Troponin T 0.020 ng/mL (0.00-0.029) 01/22/22 19:28 Total Protein 7.4 g/dL (6.3-8.2) 01/22/22 19:28 Albumin 3.1 g/dL (3.9-5) L 01/22/22 19:28 Albumin/Globulin Ratio 0.7 % 01/22/22 19:28 Triglycerides 43 mg/dL (2-149) 01/23/22 04:26 Cholesterol 139 mg/dL (50-199) 01/23/22 04:26 LDL Cholesterol Direct 68 mg/dL (50-130) 01/23/22 04:26 HDL Cholesterol 75 mg/dL (40-59) H 01/23/22 04:26 Cholesterol/HDL Ratio 1.85 % 01/23/22 04:26 TSH 1.110 mlU/mL (0.270-4.200) 01/24/22 04:36 Free T4 1.32 ng/dL (0.76-1.46) 01/22/22 19:28 Salicylates < 0.3 mg/dL (2.8-20.0) L 01/22/22 19:28 Plasma/Serum Alcohol < 0.01 % (0-0.07) 01/22/22 19:28 Blood Type O POSITIVE 01/22/22 19:28 Antibody Screen Negative 01/22/22 19:28 Chase/IV: Voiding Method Incontinent Active Medications - Current Medications Current Medications: Generic Name Dose Route Start Last Admin Trade Name Freq PRN Reason Stop Dose Admin Acetaminophen 650 mg 01/22/22 23:54 01/25/22 21:41 Acetaminophen 325 Mg Tab PO 650 mg Q4H PRN Administration Pain MILD(1-3)/Fever >100.5/VANEGAS Albuterol 2.5 mg 01/22/22 23:54 Albuterol 2.5 Mg/3 Ml Nebu IH Q3HRT PRN Shortness Of Breath Aspirin 81 mg 01/24/22 10:00 01/30/22 09:43 Aspirin 81 Mg Tab Chew PO 81 mg QDAY FABIO Administration Atorvastatin Calcium 40 mg 01/23/22 22:00 01/29/22 21:48 Atorvastatin 40 Mg Tab PO 40 mg QHS FABIO Administration Carvedilol 12.5 mg 01/25/22 10:00 01/30/22 09:44 Carvedilol 12.5 Mg Tab PO 12.5 mg BID FABIO Administration Dextrose 50 ml 01/25/22 14:00 01/28/22 01:12 Dextrose 50% In Water (25gm) 50 Ml Syringe IV 50 ml Q30MIN PRN Administration Hypoglycemia Protocol Famotidine 20 mg 01/26/22 22:00 01/30/22 09:43 Famotidine 20 Mg Tab PO 20 mg BID FABIO Administration Insulin Glargine 10 units 01/28/22 22:00 01/29/22 21:58 Insulin Glargine 100 Units/Ml SUB-Q 10 units QHS FABIO Administration Insulin Human Regular 0 units 01/25/22 16:30 01/30/22 06:57 Insulin Regular, Human 100 Units/1 Ml SUB-Q Not Given ACHS FABIO Protocol Levetiracetam 750 mg 01/26/22 10:00 01/30/22 09:43 Levetiracetam 500 Mg Tab PO 750 mg BID FABIO Administration Losartan Potassium 25 mg 01/29/22 10:00 01/30/22 09:46 Losartan 25 Mg Tab PO 25 mg QDAY FABIO Administration Metformin HCl 1,000 mg 01/26/22 17:00 01/30/22 08:12 Metformin 500 Mg Tab PO 1,000 mg BIDDIAB FABIO Administration Morphine Sulfate 2 mg 01/22/22 23:54 01/30/22 04:16 Morphine 2 Mg/1 Ml Inj IV 2 mg Q4H PRN Administration Pain, Moderate (4-6) Morphine Sulfate 4 mg 01/22/22 23:54 Morphine 4 Mg/1 Ml Inj IV Q4H PRN Pain , Severe (7-10) Ondansetron HCl 4 mg 01/22/22 23:54 Ondansetron 4 Mg/2 Ml Inj IV Q8H PRN Nausea And Vomiting Sodium Chloride 10 ml 01/23/22 10:00 01/30/22 09:47 Sodium Chloride 0.9% 10 Ml Flush Syringe IV 10 ml BID FABIO Administration Sodium Chloride 10 ml 01/22/22 23:54 Sodium Chloride 0.9% 10 Ml Flush Syringe IV PRN PRN LINE FLUSH Nutrition/Malnutrition Assess - Dietary Evaluation Nutrition/Malnutrition Findings: Nutrition Notes Start: 01/23/22 14:57 Freq: Status: Active Protocol: Document 01/30/22 11:06 SUJATHA (Rec: 01/30/22 11:31 SUJATHA [id number]) Nutrition Notes Initial or Follow up Assessment Current Diagnosis Decubitus(Pressure Ulcer), Hypertension,Stroke Other Pertinent Diagnosis Seizure, Brain Lesion, L- Humerus Fracture, Anemia. Current Diet Regular Diet (since D 01/29). Labs/Tests 01/30: N/A. Pertinent Medications 01/30: Lantus 10U, others nutritionally unremarkable. Height 5 ft Weight 73.2 kg [place] Body Weight (kg) 45.45 BMI 31.5 Weight change and time frame 4 Kg body weight loss in 1 week reported. Weight Status Obese Subjective/Other Information RD consult for routine F/U on dietary advancement. Pt's PO intake of meals has been Good (100%) and well tolerated, according to ADL notes. Pt is on Room Air, O2 saturation @ 100%, according to Physical Assessment History notes. Pt has missing teeth, according to Physical Assessment History notes. Pt is incontinent, according to Physical Assessment History notes. Pt is awaiting for MRI prior to discharge plans, according to Progress notes. Percent of energy/protein needs met: Prescribed Regular Diet provides for energy/protein needs (2,289 Kcal/89 g) during LOS. Burn Absent Trauma Present GI Symptoms Other Food Allergy No Skin Integrity/Comment Assessment WNL. Current % PO Good (75-100%) Minimum of two criteria No Fluid Accumulation N/A Reduced Instrumental Musician Strength N/A (non-severe) Protein-Calorie Malnutrition N\\A #1 Nutrition Diagnosis No nutrition diagnosis at this time Is patient on ventilator? No Is Patient Ambulatory and/or Out of Bed Yes REE[facility]) [ 1610.050 NUTR.[id number]] Kcal/Kg value to use for calculation 15 Approximate Energy Requirements Using 1098 kcal/Kg Calculation Used for Recommendations Kcal/kg Additional Notes Protein: 0.8-1 g/Kg AdjBW; 47- 59 g/day. Fluids: 1 ml/Kcal, or as per MD. Nutrition Intervention Change Diet Order: Continue Regular Diet. Follow-Up By: 02/06/22 Additional Comments Continue monitoring food tolerance, %PO intake of meals , and BM.
--- NOTE | 2022-01-30 12:33 | Progress Note ---
Assessment and Plan Assessment and plan: #Acute metabolic encephalopathyresolved #Acute ischemic CVA #Seizure disorder #Brain lesion CT head noncontrast revealing "a low attenuation lesion with hyperdensity around his present centered near the head of caudate nucleus on the right. This produces mild mass-effect with compression of the adjacent frontal horn of the right lateral ventricle. Small amount of increased attenuation matter at the posterior inferior margin of the lesion may represent calcification or small amount of hemorrhage. Considerations include brain neoplasia and abscess. Further evaluation with MRI brain to be performed without and with intravenous contrast material is advised." MRI brain with contrast: subacute infarct in R caudate TTE reveals EF 50-55% with normal-sized LV, normal LV systolic function, mild concentric LVH, mild diastolic dysfunction, and unremarkable for PFO. Neurology consulted; appreciate recs Neurosurgery consulted; appreciate recs Transition from IV Keppra 1000 mg every 12 hours to p.o. 750 mg every 12 hours. Physical therapy and Occupational Therapy consulted; recommending HH with PT Continue aspirin 81 mg daily , Plavix 75mg daily and atorvastatin 40mg daily per stroke protocol. Hemoglobin A1c 13.2. Lipid profile: Triglycerides 43, cholesterol 139, LDL 68, HDL 75 Continue to monitor #Closed fracture of left proximal humerus Continue to closely monitor as patient can follow-up with orthopedic surgery in outpatient setting. #Hypertension - home medications: None - current medications: Losartan 100 mg daily, Coreg 12.5 mg p.o. daily - SBP goal <160 and DBP goal <90 while inpatient - continue to monitor #Non-insulin dependent type II diabetes mellitus with hyperglycemia - hemoglobin A1c: 13.2 - home regimen: Metformin 500 mg twice daily - current regimen: Moderate SSI +Lantus 10 qhs + metformin 1000 mg twice daily - blood glucose goal 140-180 while inpatient - continue to monitor #Iron deficiency anemia Hemoglobin 9.1 Iron 20, TIBC 154, ferritin 170. Ordered IV Ferrlecit 125 x1 (01/25/2022) Transfuse if hemoglobin <7 or patient becomes symptomatic. #Mild protein caloric malnutrition Albumin 3.1 Continue dietary supplementation #Obesity #Weight loss counseling #Exercise counseling - BMI 33.2 - Counseled patient on the importance of weight loss, incorporating exercise, and dietary changes (lean meats, fresh fruits and vegetables, and water intake). Patient expresses understanding. - Time: +15 min #Advanced care planning -Disease education conducted, care plan discussed, diagnoses discussed, prognosis discussed, and patient acknowledges understanding with care plan -Time: +30 min #Discharge planning - plan to discharge patient home with home health PT services and DME; patient family members opted for [facility] placement - Case management has been made aware. History Interval history: Per nursing, patient fell out of bed again this afternoon. Patient reported no trauma to the head. She did land on her R arm. Xray ordered. Patient understands that she needs assistance with walking and reports falling frequently at home. She has no other complaints at this time. Hospitalist Physical - Physical exam Narrative exam: GENERAL: Well-developed well-nourished. In no acute distress. HEENT: Normocephalic. Atraumatic. NECK: Supple. CHEST/LUNGS: CTAB on room air HEART/CARDIOVASCULAR: RRR. No murmur, rubs or gallops appreciated. ABDOMEN: +BS. NT/ND. SKIN: No rashes noted. NEURO: No focal motor deficit. Follows all commands. MUSCULOSKELETAL: No joint effusion EXTREMITIES: No cyanosis, clubbing or edema. PSYCH: Cooperative. - Constitutional Vitals: Temp Pulse Resp BP Pulse Ox 98.4 F 74 18 118/71 100 01/30/22 08:27 01/30/22 09:46 01/30/22 08:27 01/30/22 09:46 01/30/22 08:27 General appearance: Present: no acute distress, well-nourished, obese, other (Mild dysphagia) HEART Score - HEART Score Troponin: Troponin T 0.020 ng/mL (0.00-0.029) 01/22/22 19:28 Results - Labs CBC & Chem 7: 01/24/22 04:36 01/24/22 04:36 Labs: Laboratory Last Values WBC 10.7 K/mm3 (4.5-11.0) 01/24/22 04:36 RBC 4.24 M/mm3 (3.65-5.03) 01/24/22 04:36 Hgb 10.7 gm/dl (10.1-14.3) 01/24/22 04:36 Hct 33.7 % (30.3-42.9) 01/24/22 04:36 MCV 80 fl (79-97) 01/24/22 04:36 MCH 25 pg (28-32) L 01/24/22 04:36 MCHC 32 % (30-34) 01/24/22 04:36 RDW 15.5 % (13.2-15.2) H 01/24/22 04:36 Plt Count 428 K/mm3 (140-440) 01/24/22 04:36 Lymph % (Auto) 15.0 % (13.4-35.0) 01/24/22 04:36 [place] % (Auto) 10.8 % (0.0-7.3) H 01/24/22 04:36 Eos % (Auto) 1.3 % (0.0-4.3) 01/24/22 04:36 Baso % (Auto) 0.4 % (0.0-1.8) 01/24/22 04:36 Lymph # (Auto) 1.6 K/mm3 (1.2-5.4) 01/24/22 04:36 [place] # (Auto) 1.2 K/mm3 (0.0-0.8) H 01/24/22 04:36 Eos # (Auto) 0.1 K/mm3 (0.0-0.4) 01/24/22 04:36 Baso # (Auto) 0.0 K/mm3 (0.0-0.1) 01/24/22 04:36 Seg Neutrophils % 72.5 % (40.0-70.0) H 01/24/22 04:36 Seg Neutrophils # 7.8 K/mm3 (1.8-7.7) H 01/24/22 04:36 PT 12.4 Sec. (12.2-14.9) 01/22/22 19:28 INR 0.84 (0.87-1.13) L 01/22/22 19:28 APTT 26.4 Sec. (24.2-36.6) 01/22/22 19:28 VBG pH 7.398 (7.320-7.420) 01/22/22 19:28 Sodium 136 mmol/L (137-145) L 01/24/22 04:36 Potassium 4.6 mmol/L (3.6-5.0) 01/24/22 04:36 Chloride 99.7 mmol/L (98-107) 01/24/22 04:36 Carbon Dioxide 24 mmol/L (22-30) 01/24/22 04:36 Anion Gap 17 mmol/L 01/24/22 04:36 BUN 13 mg/dL (7-17) 01/24/22 04:36 Creatinine 1.0 mg/dL (0.6-1.2) 01/24/22 04:36 Estimated GFR > 60 ml/min 01/24/22 04:36 BUN/Creatinine Ratio 13 % 01/24/22 04:36 Glucose 159 mg/dL (65-100) H 01/24/22 04:36 POC Glucose 147 mg/dL (70-105) H 01/30/22 11:29 Hemoglobin A1c 13.2 % (4-6) H 01/24/22 04:36 Calcium 9.1 mg/dL (8.4-10.2) 01/24/22 04:36 Magnesium 1.40 mg/dL (1.7-2.3) L 01/22/22 19:28 Iron 20 ug/dL (37-170) L 01/24/22 04:36 TIBC 154 mcg/dL (250-450) L 01/24/22 04:36 Ferritin 169.9 ng/mL (10.0-200.0) 01/24/22 04:36 Total Bilirubin 0.30 mg/dL (0.1-1.2) 01/22/22 19:28 AST 15 units/L (5-40) 01/22/22 19:28 ALT 14 units/L (7-56) 01/22/22 19:28 Alkaline Phosphatase 197 units/L (35-129) H 01/22/22 19:28 Ammonia 17.0 umol/L (25-60) L 01/22/22 19:28 Total Creatine Kinase 109 units/L (30-135) 01/22/22 19:28 CK-MB (CK-2) 4.9 ng/mL (0.0-4.0) H 01/22/22 19:28 CK-MB (CK-2) Rel Index 4.4 (0-4) H 01/22/22 19:28 Troponin T 0.020 ng/mL (0.00-0.029) 01/22/22 19:28 Total Protein 7.4 g/dL (6.3-8.2) 01/22/22 19:28 Albumin 3.1 g/dL (3.9-5) L 01/22/22 19:28 Albumin/Globulin Ratio 0.7 % 01/22/22 19:28 Triglycerides 43 mg/dL (2-149) 01/23/22 04:26 Cholesterol 139 mg/dL (50-199) 01/23/22 04:26 LDL Cholesterol Direct 68 mg/dL (50-130) 01/23/22 04:26 HDL Cholesterol 75 mg/dL (40-59) H 01/23/22 04:26 Cholesterol/HDL Ratio 1.85 % 01/23/22 04:26 TSH 1.110 mlU/mL (0.270-4.200) 01/24/22 04:36 Free T4 1.32 ng/dL (0.76-1.46) 01/22/22 19:28 Salicylates < 0.3 mg/dL (2.8-20.0) L 01/22/22 19:28 Plasma/Serum Alcohol < 0.01 % (0-0.07) 01/22/22 19:28 Blood Type O POSITIVE 01/22/22 19:28 Antibody Screen Negative 01/22/22 19:28 Chase/IV: Voiding Method Incontinent Active Medications - Current Medications Current Medications: Generic Name Dose Route Start Last Admin Trade Name Freq PRN Reason Stop Dose Admin Acetaminophen 650 mg 01/22/22 23:54 01/25/22 21:41 Acetaminophen 325 Mg Tab PO 650 mg Q4H PRN Administration Pain MILD(1-3)/Fever >100.5/VANEGAS Albuterol 2.5 mg 01/22/22 23:54 Albuterol 2.5 Mg/3 Ml Nebu IH Q3HRT PRN Shortness Of Breath Aspirin 81 mg 01/24/22 10:00 01/30/22 09:43 Aspirin 81 Mg Tab Chew PO 81 mg QDAY FABIO Administration Atorvastatin Calcium 40 mg 01/23/22 22:00 01/29/22 21:48 Atorvastatin 40 Mg Tab PO 40 mg QHS FABIO Administration Carvedilol 12.5 mg 01/25/22 10:00 01/30/22 09:44 Carvedilol 12.5 Mg Tab PO 12.5 mg BID FABIO Administration Dextrose 50 ml 01/25/22 14:00 01/28/22 01:12 Dextrose 50% In Water (25gm) 50 Ml Syringe IV 50 ml Q30MIN PRN Administration Hypoglycemia Protocol Famotidine 20 mg 01/26/22 22:00 01/30/22 09:43 Famotidine 20 Mg Tab PO 20 mg BID FABIO Administration Insulin Glargine 10 units 01/28/22 22:00 01/29/22 21:58 Insulin Glargine 100 Units/Ml SUB-Q 10 units QHS FABIO Administration Insulin Human Regular 0 units 01/25/22 16:30 01/30/22 06:57 Insulin Regular, Human 100 Units/1 Ml SUB-Q Not Given ACHS FABIO Protocol Levetiracetam 750 mg 01/26/22 10:00 01/30/22 09:43 Levetiracetam 500 Mg Tab PO 750 mg BID FABIO Administration Losartan Potassium 25 mg 01/29/22 10:00 01/30/22 09:46 Losartan 25 Mg Tab PO 25 mg QDAY FABIO Administration Metformin HCl 1,000 mg 01/26/22 17:00 01/30/22 08:12 Metformin 500 Mg Tab PO 1,000 mg BIDDIAB FABIO Administration Morphine Sulfate 2 mg 01/22/22 23:54 01/30/22 04:16 Morphine 2 Mg/1 Ml Inj IV 2 mg Q4H PRN Administration Pain, Moderate (4-6) Morphine Sulfate 4 mg 01/22/22 23:54 Morphine 4 Mg/1 Ml Inj IV Q4H PRN Pain , Severe (7-10) Ondansetron HCl 4 mg 01/22/22 23:54 Ondansetron 4 Mg/2 Ml Inj IV Q8H PRN Nausea And Vomiting Sodium Chloride 10 ml 01/23/22 10:00 01/30/22 09:47 Sodium Chloride 0.9% 10 Ml Flush Syringe IV 10 ml BID FABIO Administration Sodium Chloride 10 ml 01/22/22 23:54 Sodium Chloride 0.9% 10 Ml Flush Syringe IV PRN PRN LINE FLUSH Nutrition/Malnutrition Assess - Dietary Evaluation Nutrition/Malnutrition Findings: Nutrition Notes Start: 01/23/22 14:57 Freq: Status: Active Protocol: Document 01/30/22 11:06 SUJATHA (Rec: 01/30/22 11:31 SUJATHA [id number]) Nutrition Notes Initial or Follow up Assessment Current Diagnosis Decubitus(Pressure Ulcer), Hypertension,Stroke Other Pertinent Diagnosis Seizure, Brain Lesion, L- Humerus Fracture, Anemia. Current Diet Regular Diet (since D 01/29). Labs/Tests 01/30: N/A. Pertinent Medications 01/30: Lantus 10U, others nutritionally unremarkable. Height 5 ft Weight 73.2 kg [place] Body Weight (kg) 45.45 BMI 31.5 Weight change and time frame 4 Kg body weight loss in 1 week reported. Weight Status Obese Subjective/Other Information RD consult for routine F/U on dietary advancement. Pt's PO intake of meals has been Good (100%) and well tolerated, according to ADL notes. Pt is on Room Air, O2 saturation @ 100%, according to Physical Assessment History notes. Pt has missing teeth, according to Physical Assessment History notes. Pt is incontinent, according to Physical Assessment History notes. Pt is awaiting for MRI prior to discharge plans, according to Progress notes. Percent of energy/protein needs met: Prescribed Regular Diet provides for energy/protein needs (2,289 Kcal/89 g) during LOS. Burn Absent Trauma Present GI Symptoms Other Food Allergy No Skin Integrity/Comment Assessment WNL. Current % PO Good (75-100%) Minimum of two criteria No Fluid Accumulation N/A Reduced Aluminizer Strength N/A (non-severe) Protein-Calorie Malnutrition N\\A #1 Nutrition Diagnosis No nutrition diagnosis at this time Is patient on ventilator? No Is Patient Ambulatory and/or Out of Bed Yes REE-([facility]-ambulatory/OOB) [ 1610.050 NUTR.[email or web address]] Kcal/Kg value to use for calculation 15 Approximate Energy Requirements Using 1098 kcal/Kg Calculation Used for Recommendations Kcal/kg Additional Notes Protein: 0.8-1 g/Kg AdjBW; 47- 59 g/day. Fluids: 1 ml/Kcal, or as per MD. Nutrition Intervention Change Diet Order: Continue Regular Diet. Follow-Up By: 02/06/22 Additional Comments Continue monitoring food tolerance, %PO intake of meals , and BM.
--- NOTE | 2022-01-30 12:59 | Progress Note ---
Assessment and Plan Assessment and plan: #Acute metabolic encephalopathyresolved #Acute ischemic CVA #Seizure disorder #Brain lesion CT head noncontrast revealing "a low attenuation lesion with hyperdensity around his present centered near the head of caudate nucleus on the right. This produces mild mass-effect with compression of the adjacent frontal horn of the right lateral ventricle. Small amount of increased attenuation matter at the posterior inferior margin of the lesion may represent calcification or small amount of hemorrhage. Considerations include brain neoplasia and abscess. Further evaluation with MRI brain to be performed without and with intravenous contrast material is advised." MRI brain with contrast: subacute infarct in R caudate TTE reveals EF 50-55% with normal-sized LV, normal LV systolic function, mild concentric LVH, mild diastolic dysfunction, and unremarkable for PFO. Neurology consulted; appreciate recs Neurosurgery consulted; appreciate recs Transition from IV Keppra 1000 mg every 12 hours to p.o. 750 mg every 12 hours. Physical therapy and Occupational Therapy consulted; recommending HH with PT Continue aspirin 81 mg daily , Plavix 75mg daily and atorvastatin 40mg daily per stroke protocol. Hemoglobin A1c 13.2. Lipid profile: Triglycerides 43, cholesterol 139, LDL 68, HDL 75 Continue to monitor #Closed fracture of left proximal humerus Continue to closely monitor as patient can follow-up with orthopedic surgery in outpatient setting. #Hypertension - home medications: None - current medications: Losartan 100 mg daily, Coreg 12.5 mg p.o. daily - SBP goal <160 and DBP goal <90 while inpatient - continue to monitor #Non-insulin dependent type II diabetes mellitus with hyperglycemia - hemoglobin A1c: 13.2 - home regimen: Metformin 500 mg twice daily - current regimen: Moderate SSI +Lantus 10 qhs + metformin 1000 mg twice daily - blood glucose goal 140-180 while inpatient - continue to monitor #Iron deficiency anemia last Hgb, will repeat CBC tomorrow Iron 20, TIBC 154, ferritin 170. Ordered IV Ferrlecit 125 x1 (01/25/2022) Transfuse if hemoglobin <7 or patient becomes symptomatic. #Mild protein caloric malnutrition Albumin 3.1 Continue dietary supplementation #Obesity #Weight loss counseling #Exercise counseling - BMI 33.2 - Counseled patient on the importance of weight loss, incorporating exercise, and dietary changes (lean meats, fresh fruits and vegetables, and water intake). Patient expresses understanding. - Time: +15 min #Advanced care planning -Disease education conducted, care plan discussed, diagnoses discussed, prognosis discussed, and patient acknowledges understanding with care plan -Time: +30 min #Discharge planning - patient family members opted for [facility] placement - Case management has been made aware. History Interval history: No acute events overnight. Patient updated about current care plan. She is hopeful that her family will allow her back home. We discussed personal fdc placement. She has no complaints at this time. Hospitalist Physical - Physical exam Narrative exam: GENERAL: Well-developed well-nourished. In no acute distress. HEENT: Normocephalic. Atraumatic. NECK: Supple. CHEST/LUNGS: CTAB on room air HEART/CARDIOVASCULAR: RRR. No murmur, rubs or gallops appreciated. ABDOMEN: +BS. NT/ND. SKIN: No rashes noted. NEURO: No focal motor deficit. Follows all commands. MUSCULOSKELETAL: No joint effusion EXTREMITIES: No cyanosis, clubbing or edema. PSYCH: Cooperative. - Constitutional Vitals: Temp Pulse Resp BP Pulse Ox 98.4 F 74 18 118/71 100 01/30/22 08:27 01/30/22 09:46 01/30/22 08:27 01/30/22 09:46 01/30/22 08:27 General appearance: Present: no acute distress, well-nourished, obese, other (Mild dysphagia) HEART Score - HEART Score Troponin: Troponin T 0.020 ng/mL (0.00-0.029) 01/22/22 19:28 Results - Labs CBC & Chem 7: 01/24/22 04:36 01/24/22 04:36 Labs: Laboratory Last Values WBC 10.7 K/mm3 (4.5-11.0) 01/24/22 04:36 RBC 4.24 M/mm3 (3.65-5.03) 01/24/22 04:36 Hgb 10.7 gm/dl (10.1-14.3) 01/24/22 04:36 Hct 33.7 % (30.3-42.9) 01/24/22 04:36 MCV 80 fl (79-97) 01/24/22 04:36 MCH 25 pg (28-32) L 01/24/22 04:36 MCHC 32 % (30-34) 01/24/22 04:36 RDW 15.5 % (13.2-15.2) H 01/24/22 04:36 Plt Count 428 K/mm3 (140-440) 01/24/22 04:36 Lymph % (Auto) 15.0 % (13.4-35.0) 01/24/22 04:36 [place] % (Auto) 10.8 % (0.0-7.3) H 01/24/22 04:36 Eos % (Auto) 1.3 % (0.0-4.3) 01/24/22 04:36 Baso % (Auto) 0.4 % (0.0-1.8) 01/24/22 04:36 Lymph # (Auto) 1.6 K/mm3 (1.2-5.4) 01/24/22 04:36 [place] # (Auto) 1.2 K/mm3 (0.0-0.8) H 01/24/22 04:36 Eos # (Auto) 0.1 K/mm3 (0.0-0.4) 01/24/22 04:36 Baso # (Auto) 0.0 K/mm3 (0.0-0.1) 01/24/22 04:36 Seg Neutrophils % 72.5 % (40.0-70.0) H 01/24/22 04:36 Seg Neutrophils # 7.8 K/mm3 (1.8-7.7) H 01/24/22 04:36 PT 12.4 Sec. (12.2-14.9) 01/22/22 19:28 INR 0.84 (0.87-1.13) L 01/22/22 19:28 APTT 26.4 Sec. (24.2-36.6) 01/22/22 19:28 VBG pH 7.398 (7.320-7.420) 01/22/22 19:28 Sodium 136 mmol/L (137-145) L 01/24/22 04:36 Potassium 4.6 mmol/L (3.6-5.0) 01/24/22 04:36 Chloride 99.7 mmol/L (98-107) 01/24/22 04:36 Carbon Dioxide 24 mmol/L (22-30) 01/24/22 04:36 Anion Gap 17 mmol/L 01/24/22 04:36 BUN 13 mg/dL (7-17) 01/24/22 04:36 Creatinine 1.0 mg/dL (0.6-1.2) 01/24/22 04:36 Estimated GFR > 60 ml/min 01/24/22 04:36 BUN/Creatinine Ratio 13 % 01/24/22 04:36 Glucose 159 mg/dL (65-100) H 01/24/22 04:36 POC Glucose 147 mg/dL (70-105) H 01/30/22 11:29 Hemoglobin A1c 13.2 % (4-6) H 01/24/22 04:36 Calcium 9.1 mg/dL (8.4-10.2) 01/24/22 04:36 Magnesium 1.40 mg/dL (1.7-2.3) L 01/22/22 19:28 Iron 20 ug/dL (37-170) L 01/24/22 04:36 TIBC 154 mcg/dL (250-450) L 01/24/22 04:36 Ferritin 169.9 ng/mL (10.0-200.0) 01/24/22 04:36 Total Bilirubin 0.30 mg/dL (0.1-1.2) 01/22/22 19:28 AST 15 units/L (5-40) 01/22/22 19:28 ALT 14 units/L (7-56) 01/22/22 19:28 Alkaline Phosphatase 197 units/L (35-129) H 01/22/22 19:28 Ammonia 17.0 umol/L (25-60) L 01/22/22 19:28 Total Creatine Kinase 109 units/L (30-135) 01/22/22 19:28 CK-MB (CK-2) 4.9 ng/mL (0.0-4.0) H 01/22/22 19:28 CK-MB (CK-2) Rel Index 4.4 (0-4) H 01/22/22 19:28 Troponin T 0.020 ng/mL (0.00-0.029) 01/22/22 19:28 Total Protein 7.4 g/dL (6.3-8.2) 01/22/22 19:28 Albumin 3.1 g/dL (3.9-5) L 01/22/22 19:28 Albumin/Globulin Ratio 0.7 % 01/22/22 19:28 Triglycerides 43 mg/dL (2-149) 01/23/22 04:26 Cholesterol 139 mg/dL (50-199) 01/23/22 04:26 LDL Cholesterol Direct 68 mg/dL (50-130) 01/23/22 04:26 HDL Cholesterol 75 mg/dL (40-59) H 01/23/22 04:26 Cholesterol/HDL Ratio 1.85 % 01/23/22 04:26 TSH 1.110 mlU/mL (0.270-4.200) 01/24/22 04:36 Free T4 1.32 ng/dL (0.76-1.46) 01/22/22 19:28 Salicylates < 0.3 mg/dL (2.8-20.0) L 01/22/22 19:28 Plasma/Serum Alcohol < 0.01 % (0-0.07) 01/22/22 19:28 Blood Type O POSITIVE 01/22/22 19:28 Antibody Screen Negative 01/22/22 19:28 Chase/IV: Voiding Method Incontinent Active Medications - Current Medications Current Medications: Generic Name Dose Route Start Last Admin Trade Name Freq PRN Reason Stop Dose Admin Acetaminophen 650 mg 01/22/22 23:54 01/25/22 21:41 Acetaminophen 325 Mg Tab PO 650 mg Q4H PRN Administration Pain MILD(1-3)/Fever >100.5/VANEGAS Albuterol 2.5 mg 01/22/22 23:54 Albuterol 2.5 Mg/3 Ml Nebu IH Q3HRT PRN Shortness Of Breath Aspirin 81 mg 01/24/22 10:00 01/30/22 09:43 Aspirin 81 Mg Tab Chew PO 81 mg QDAY FABIO Administration Atorvastatin Calcium 40 mg 01/23/22 22:00 01/29/22 21:48 Atorvastatin 40 Mg Tab PO 40 mg QHS FABIO Administration Carvedilol 12.5 mg 01/25/22 10:00 01/30/22 09:44 Carvedilol 12.5 Mg Tab PO 12.5 mg BID FABIO Administration Dextrose 50 ml 01/25/22 14:00 01/28/22 01:12 Dextrose 50% In Water (25gm) 50 Ml Syringe IV 50 ml Q30MIN PRN Administration Hypoglycemia Protocol Famotidine 20 mg 01/26/22 22:00 01/30/22 09:43 Famotidine 20 Mg Tab PO 20 mg BID FABIO Administration Insulin Glargine 10 units 01/28/22 22:00 01/29/22 21:58 Insulin Glargine 100 Units/Ml SUB-Q 10 units QHS FABIO Administration Insulin Human Regular 0 units 01/25/22 16:30 01/30/22 06:57 Insulin Regular, Human 100 Units/1 Ml SUB-Q Not Given ACHS [facility] Protocol Levetiracetam 750 mg 01/26/22 10:00 01/30/22 09:43 Levetiracetam 500 Mg Tab PO 750 mg BID FABIO Administration Losartan Potassium 25 mg 01/29/22 10:00 01/30/22 09:46 Losartan 25 Mg Tab PO 25 mg QDAY FABIO Administration Metformin HCl 1,000 mg 01/26/22 17:00 01/30/22 08:12 Metformin 500 Mg Tab PO 1,000 mg BIDDIAB FABIO Administration Morphine Sulfate 2 mg 01/22/22 23:54 01/30/22 04:16 Morphine 2 Mg/1 Ml Inj IV 2 mg Q4H PRN Administration Pain, Moderate (4-6) Morphine Sulfate 4 mg 01/22/22 23:54 Morphine 4 Mg/1 Ml Inj IV Q4H PRN Pain , Severe (7-10) Ondansetron HCl 4 mg 01/22/22 23:54 Ondansetron 4 Mg/2 Ml Inj IV Q8H PRN Nausea And Vomiting Sodium Chloride 10 ml 01/23/22 10:00 01/30/22 09:47 Sodium Chloride 0.9% 10 Ml Flush Syringe IV 10 ml BID FABIO Administration Sodium Chloride 10 ml 01/22/22 23:54 Sodium Chloride 0.9% 10 Ml Flush Syringe IV PRN PRN LINE FLUSH Nutrition/Malnutrition Assess - Dietary Evaluation Nutrition/Malnutrition Findings: Nutrition Notes Start: 01/23/22 14:57 Freq: Status: Active Protocol: Document 01/30/22 11:06 SUJATHA (Rec: 01/30/22 11:31 SUJATHA [id number]) Nutrition Notes Initial or Follow up Assessment Current Diagnosis Decubitus(Pressure Ulcer), Hypertension,Stroke Other Pertinent Diagnosis Seizure, Brain Lesion, L- Humerus Fracture, Anemia. Current Diet Regular Diet (since D 01/29). Labs/Tests 01/30: N/A. Pertinent Medications 01/30: Lantus 10U, others nutritionally unremarkable. Height 5 ft Weight 73.2 kg [place] Body Weight (kg) 45.45 BMI 31.5 Weight change and time frame 4 Kg body weight loss in 1 week reported. Weight Status Obese Subjective/Other Information RD consult for routine F/U on dietary advancement. Pt's PO intake of meals has been Good (100%) and well tolerated, according to ADL notes. Pt is on Room Air, O2 saturation @ 100%, according to Physical Assessment History notes. Pt has missing teeth, according to Physical Assessment History notes. Pt is incontinent, according to Physical Assessment History notes. Pt is awaiting for MRI prior to discharge plans, according to Progress notes. Percent of energy/protein needs met: Prescribed Regular Diet provides for energy/protein needs (2,289 Kcal/89 g) during LOS. Burn Absent Trauma Present GI Symptoms Other Food Allergy No Skin Integrity/Comment Assessment WNL. Current % PO Good (75-100%) Minimum of two criteria No Fluid Accumulation N/A Reduced Senior Qa Engineer Strength N/A (non-severe) Protein-Calorie Malnutrition N\\A #1 Nutrition Diagnosis No nutrition diagnosis at this time Is patient on ventilator? No Is Patient Ambulatory and/or Out of Bed Yes REE-([facility]-ambulatory/OOB) [ 1610.050 [email or web address]] Kcal/Kg value to use for calculation 15 Approximate Energy Requirements Using 1098 kcal/Kg Calculation Used for Recommendations Kcal/kg Additional Notes Protein: 0.8-1 g/Kg AdjBW; 47- 59 g/day. Fluids: 1 ml/Kcal, or as per MD. Nutrition Intervention Change Diet Order: Continue Regular Diet. Follow-Up By: 02/06/22 Additional Comments Continue monitoring food tolerance, %PO intake of meals , and BM.
[2022-01-30] MEDS: MORPHINE 4 MG/1 ML INJ IV PRN ×2 (16:27→21:13)
[2022-01-30] MEDS: ONDANSETRON 4 MG/2 ML INJ IV PRN (21:13)
[2022-01-30] MEDS: INSULIN GLARGINE 100 UNITS/ML SUB-Q SCH (21:14)
[2022-01-31] MEDS: MORPHINE 4 MG/1 ML INJ IV PRN ×2 (02:13→23:39)
[2022-01-31 05:46] LABS: Hematocrit 28.2 % (30.3-42.9); Hemoglobin 8.9 gm/dl (10.1-14.3); Mean Corpuscular HGB Conc 32 % (30-34); Mean Corpuscular Volume 80 fl (79-97); Platelet Count 418 K/mm3 (140-440); Red Blood Count 3.54 M/mm3 (3.65-5.03); Red Cell Distribution Width 15.2 % (13.2-15.2)
[2022-01-31 06:02] LABS: Calcium 8.6 mg/dL (8.4-10.2)
[2022-01-31] MEDS: INSULIN REGULAR, HUMAN 100 UNITS/1 ML SUB-Q SCH ×4 (08:01→21:17)
[2022-01-31] MEDS: metFORMIN 500 MG TAB PO SCH (08:19)
[2022-01-31] MEDS ORDERED: SODIUM CHLORIDE 0.9% 1000 ML 1,000 ML IV SCH (09:00)
[2022-01-31] MEDS: ASPIRIN 81 MG TAB CHEW PO SCH (10:14)
[2022-01-31] MEDS: levETIRAcetam 500 MG TAB PO SCH ×2 (10:14→21:16)
[2022-01-31] MEDS: LOSARTAN 25 MG TAB PO SCH (10:15)
[2022-01-31] MEDS: FAMOTIDINE 20 MG TAB PO SCH ×2 (10:20→21:17)
[2022-01-31] MEDS: carvediloL 12.5 MG TAB PO SCH ×2 (10:20→21:18)
--- NOTE | 2022-01-31 10:59 | Progress Note ---
Assessment and Plan Assessment and plan: #Acute metabolic encephalopathyresolved #Acute ischemic CVA #Seizure disorder #Brain lesion CT head noncontrast revealing "a low attenuation lesion with hyperdensity around his present centered near the head of caudate nucleus on the right. This produces mild mass-effect with compression of the adjacent frontal horn of the right lateral ventricle. Small amount of increased attenuation matter at the posterior inferior margin of the lesion may represent calcification or small amount of hemorrhage. Considerations include brain neoplasia and abscess. Further evaluation with MRI brain to be performed without and with intravenous contrast material is advised." MRI brain with contrast: subacute infarct in R caudate TTE reveals EF 50-55% with normal-sized LV, normal LV systolic function, mild concentric LVH, mild diastolic dysfunction, and unremarkable for PFO. continue Keppra 750 mg every 12 hours. Physical therapy and Occupational Therapy consulted; recommending HH with PT Continue aspirin 81 mg daily , Plavix 75mg daily and atorvastatin 40mg daily per stroke protocol. Hemoglobin A1c 13.2. Lipid profile: Triglycerides 43, cholesterol 139, LDL 68, HDL 75 #Closed fracture of left proximal humerus Continue to closely monitor as patient can follow-up with orthopedic surgery in outpatient setting. #Hypertension - home medications: None - current medications: Losartan 100 mg daily, Coreg 12.5 mg p.o. daily - SBP goal <160 and DBP goal <90 while inpatient - continue to monitor #Non-insulin dependent type II diabetes mellitus with hyperglycemia - hemoglobin A1c: 13.2 - home regimen: Metformin 500 mg twice daily - current regimen: Moderate SSI +Lantus 10 qhs + metformin 1000 mg twice daily - blood glucose goal 140-180 while inpatient - continue to monitor #Acute kidney injury -SCr 2.3, baseline -avoid nephrotoxins and renally dose medications -recently started losartan at home dose -will start IVFs, if no improvement in SCr we will discontinue losartan #Iron deficiency anemia last Hgb, will repeat CBC tomorrow Iron 20, TIBC 154, ferritin 170. Ordered IV Ferrlecit 125 x1 (01/25/2022) Transfuse if hemoglobin <7 or patient becomes symptomatic. #Mild protein caloric malnutrition Albumin 3.1 Continue dietary supplementation #Obesity #Weight loss counseling #Exercise counseling - BMI 33.2 - Counseled patient on the importance of weight loss, incorporating exercise, and dietary changes (lean meats, fresh fruits and vegetables, and water intake). Patient expresses understanding. - Time: +15 min #Advanced care planning -Disease education conducted, care plan discussed, diagnoses discussed, prognosis discussed, and patient acknowledges understanding with care plan -Time: +30 min #Discharge planning - patient family members opted for [facility] placement - Case management has been made aware. History Interval history: No acute events overnight. Patient updated about current care plan. Patient reports nausea and vomiting this morning after breakfast. She denies associated odynophagia, dysphagia or abdominal pain. She has no additional complaints at this time. Hospitalist Physical - Physical exam Narrative exam: GENERAL: Well-developed well-nourished. In no acute distress. HEENT: Normocephalic. Atraumatic. NECK: Supple. CHEST/LUNGS: CTAB on room air HEART/CARDIOVASCULAR: RRR. No murmur, rubs or gallops appreciated. ABDOMEN: +BS. NT/ND. SKIN: No rashes noted. NEURO: No focal motor deficit. Follows all commands. MUSCULOSKELETAL: No joint effusion EXTREMITIES: No cyanosis, clubbing or edema. PSYCH: Cooperative. - Constitutional Vitals: Temp Pulse Resp BP Pulse Ox 98 F 70 18 122/59 92 01/31/22 00:29 01/31/22 10:20 01/31/22 03:37 01/31/22 10:20 01/31/22 03:38 General appearance: Present: no acute distress, well-nourished, obese, other (Mild dysphagia) HEART Score - HEART Score Troponin: Troponin T 0.020 ng/mL (0.00-0.029) 01/22/22 19:28 Results - Labs CBC & Chem 7: 01/31/22 04:54 01/31/22 04:54 Labs: Laboratory Last Values WBC 6.3 K/mm3 (4.5-11.0) 01/31/22 04:54 RBC 3.54 M/mm3 (3.65-5.03) L 01/31/22 04:54 Hgb 8.9 gm/dl (10.1-14.3) L 01/31/22 04:54 Hct 28.2 % (30.3-42.9) L 01/31/22 04:54 MCV 80 fl (79-97) 01/31/22 04:54 MCH 25 pg (28-32) L 01/31/22 04:54 MCHC 32 % (30-34) 01/31/22 04:54 RDW 15.2 % (13.2-15.2) 01/31/22 04:54 Plt Count 418 K/mm3 (140-440) 01/31/22 04:54 Lymph % (Auto) 15.0 % (13.4-35.0) 01/24/22 04:36 [place] % (Auto) 10.8 % (0.0-7.3) H 01/24/22 04:36 Eos % (Auto) 1.3 % (0.0-4.3) 01/24/22 04:36 Baso % (Auto) 0.4 % (0.0-1.8) 01/24/22 04:36 Lymph # (Auto) 1.6 K/mm3 (1.2-5.4) 01/24/22 04:36 [place] # (Auto) 1.2 K/mm3 (0.0-0.8) H 01/24/22 04:36 Eos # (Auto) 0.1 K/mm3 (0.0-0.4) 01/24/22 04:36 Baso # (Auto) 0.0 K/mm3 (0.0-0.1) 01/24/22 04:36 Seg Neutrophils % 72.5 % (40.0-70.0) H 01/24/22 04:36 Seg Neutrophils # 7.8 K/mm3 (1.8-7.7) H 01/24/22 04:36 PT 12.4 Sec. (12.2-14.9) 01/22/22 19:28 INR 0.84 (0.87-1.13) L 01/22/22 19:28 APTT 26.4 Sec. (24.2-36.6) 01/22/22 19:28 VBG pH 7.398 (7.320-7.420) 01/22/22 19:28 Sodium 136 mmol/L (137-145) L 01/31/22 04:54 Potassium 4.8 mmol/L (3.6-5.0) 01/31/22 04:54 Chloride 101.4 mmol/L (98-107) 01/31/22 04:54 Carbon Dioxide 25 mmol/L (22-30) 01/31/22 04:54 Anion Gap 14 mmol/L 01/31/22 04:54 BUN 38 mg/dL (7-17) H 01/31/22 04:54 Creatinine 2.3 mg/dL (0.6-1.2) H 01/31/22 04:54 Estimated GFR 26 ml/min 01/31/22 04:54 BUN/Creatinine Ratio 17 % 01/31/22 04:54 Glucose 143 mg/dL (65-100) H 01/31/22 04:54 POC Glucose 113 mg/dL (70-105) H 01/31/22 07:54 Hemoglobin A1c 13.2 % (4-6) H 01/24/22 04:36 Calcium 8.6 mg/dL (8.4-10.2) 01/31/22 04:54 Magnesium 1.40 mg/dL (1.7-2.3) L 01/22/22 19:28 Iron 20 ug/dL (37-170) L 01/24/22 04:36 TIBC 154 mcg/dL (250-450) L 01/24/22 04:36 Ferritin 169.9 ng/mL (10.0-200.0) 01/24/22 04:36 Total Bilirubin 0.30 mg/dL (0.1-1.2) 01/22/22 19:28 AST 15 units/L (5-40) 01/22/22 19:28 ALT 14 units/L (7-56) 01/22/22 19:28 Alkaline Phosphatase 197 units/L (35-129) H 01/22/22 19:28 Ammonia 17.0 umol/L (25-60) L 01/22/22 19:28 Total Creatine Kinase 109 units/L (30-135) 01/22/22 19:28 CK-MB (CK-2) 4.9 ng/mL (0.0-4.0) H 01/22/22 19:28 CK-MB (CK-2) Rel Index 4.4 (0-4) H 01/22/22 19:28 Troponin T 0.020 ng/mL (0.00-0.029) 01/22/22 19:28 Total Protein 7.4 g/dL (6.3-8.2) 01/22/22 19:28 Albumin 3.1 g/dL (3.9-5) L 01/22/22 19:28 Albumin/Globulin Ratio 0.7 % 01/22/22 19:28 Triglycerides 43 mg/dL (2-149) 01/23/22 04:26 Cholesterol 139 mg/dL (50-199) 01/23/22 04:26 LDL Cholesterol Direct 68 mg/dL (50-130) 01/23/22 04:26 HDL Cholesterol 75 mg/dL (40-59) H 01/23/22 04:26 Cholesterol/HDL Ratio 1.85 % 01/23/22 04:26 TSH 1.110 mlU/mL (0.270-4.200) 01/24/22 04:36 Free T4 1.32 ng/dL (0.76-1.46) 01/22/22 19:28 Salicylates < 0.3 mg/dL (2.8-20.0) L 01/22/22 19:28 Plasma/Serum Alcohol < 0.01 % (0-0.07) 01/22/22 19:28 Blood Type O POSITIVE 01/22/22 19:28 Antibody Screen Negative 01/22/22 19:28 Chase/IV: Voiding Method Incontinent Active Medications - Current Medications Current Medications: Generic Name Dose Route Start Last Admin Trade Name Freq PRN Reason Stop Dose Admin Acetaminophen 650 mg 01/22/22 23:54 01/25/22 21:41 Acetaminophen 325 Mg Tab PO 650 mg Q4H PRN Administration Pain MILD(1-3)/Fever >100.5/VANEGAS Albuterol 2.5 mg 01/22/22 23:54 Albuterol 2.5 Mg/3 Ml Nebu IH Q3HRT PRN Shortness Of Breath Aspirin 81 mg 01/24/22 10:00 01/31/22 10:14 Aspirin 81 Mg Tab Chew PO 81 mg QDAY FABIO Administration Atorvastatin Calcium 40 mg 01/23/22 22:00 01/30/22 21:13 Atorvastatin 40 Mg Tab PO 40 mg QHS FABIO Administration Carvedilol 12.5 mg 01/25/22 10:00 01/31/22 10:20 Carvedilol 12.5 Mg Tab PO 12.5 mg BID FABIO Administration Dextrose 50 ml 01/25/22 14:00 01/28/22 01:12 Dextrose 50% In Water (25gm) 50 Ml Syringe IV 50 ml Q30MIN PRN Administration Hypoglycemia Protocol Famotidine 20 mg 01/26/22 22:00 01/31/22 10:20 Famotidine 20 Mg Tab PO 20 mg BID FABIO Administration Sodium Chloride 1,000 mls @ 75 mls/hr 01/31/22 09:00 01/31/22 10:13 Nacl 0.9% 1000 Ml IV 75 mls/hr DIRECT FABIO Administration Insulin Glargine 10 units 01/28/22 22:00 01/30/22 21:14 Insulin Glargine 100 Units/Ml SUB-Q 10 units QHS FABIO Administration Insulin Human Regular 0 units 01/25/22 16:30 01/31/22 08:01 Insulin Regular, Human 100 Units/1 Ml SUB-Q Not Given ACHS FABIO Protocol Levetiracetam 750 mg 01/26/22 10:00 01/31/22 10:14 Levetiracetam 500 Mg Tab PO 750 mg BID FABIO Administration Losartan Potassium 25 mg 01/29/22 10:00 01/31/22 10:15 Losartan 25 Mg Tab PO 25 mg QDAY FABIO Administration Metformin HCl 1,000 mg 01/26/22 17:00 01/31/22 08:19 Metformin 500 Mg Tab PO 1,000 mg BIDDIAB FABIO Administration Morphine Sulfate 2 mg 01/22/22 23:54 01/30/22 04:16 Morphine 2 Mg/1 Ml Inj IV 2 mg Q4H PRN Administration Pain, Moderate (4-6) Morphine Sulfate 4 mg 01/22/22 23:54 01/31/22 02:13 Morphine 4 Mg/1 Ml Inj IV 4 mg Q4H PRN Administration Pain , Severe (7-10) Ondansetron HCl 4 mg 01/22/22 23:54 01/30/22 21:13 Ondansetron 4 Mg/2 Ml Inj IV 4 mg Q8H PRN Administration Nausea And Vomiting Sodium Chloride 10 ml 01/23/22 10:00 01/31/22 10:14 Sodium Chloride 0.9% 10 Ml Flush Syringe IV 10 ml BID FABIO Administration Sodium Chloride 10 ml 01/22/22 23:54 Sodium Chloride 0.9% 10 Ml Flush Syringe IV PRN PRN LINE FLUSH Nutrition/Malnutrition Assess - Dietary Evaluation Nutrition/Malnutrition Findings: Nutrition Notes Start: 01/23/22 14:57 Freq: Status: Active Protocol: Document 01/30/22 11:06 SUJATHA (Rec: 01/30/22 11:31 SUJATHA [id number]) Nutrition Notes Initial or Follow up Assessment Current Diagnosis Decubitus(Pressure Ulcer), Hypertension,Stroke Other Pertinent Diagnosis Seizure, Brain Lesion, L- Humerus Fracture, Anemia. Current Diet Regular Diet (since D 01/29). Labs/Tests 01/30: N/A. Pertinent Medications 01/30: Lantus 10U, others nutritionally unremarkable. Height 5 ft Weight 73.2 kg [place] Body Weight (kg) 45.45 BMI 31.5 Weight change and time frame 4 Kg body weight loss in 1 week reported. Weight Status Obese Subjective/Other Information RD consult for routine F/U on dietary advancement. Pt's PO intake of meals has been Good (100%) and well tolerated, according to ADL notes. Pt is on Room Air, O2 saturation @ 100%, according to Physical Assessment History notes. Pt has missing teeth, according to Physical Assessment History notes. Pt is incontinent, according to Physical Assessment History notes. Pt is awaiting for MRI prior to discharge plans, according to Progress notes. Percent of energy/protein needs met: Prescribed Regular Diet provides for energy/protein needs (2,289 Kcal/89 g) during LOS. Burn Absent Trauma Present GI Symptoms Other Food Allergy No Skin Integrity/Comment Assessment WNL. Current % PO Good (75-100%) Minimum of two criteria No Fluid Accumulation N/A Reduced Layout Artist Strength N/A (non-severe) Protein-Calorie Malnutrition N\\A #1 Nutrition Diagnosis No nutrition diagnosis at this time Is patient on ventilator? No Is Patient Ambulatory and/or Out of Bed Yes REE-([facility] [place]-ambulatory/OOB) [ 1610.050 [email or web address]] Kcal/Kg value to use for calculation 15 Approximate Energy Requirements Using 1098 kcal/Kg Calculation Used for Recommendations Kcal/kg Additional Notes Protein: 0.8-1 g/Kg AdjBW; 47- 59 g/day. Fluids: 1 ml/Kcal, or as per MD. Nutrition Intervention Change Diet Order: Continue Regular Diet. Follow-Up By: 02/06/22 Additional Comments Continue monitoring food tolerance, %PO intake of meals , and BM.
[2022-01-31] MEDS: INSULIN GLARGINE 100 UNITS/ML SUB-Q SCH (21:17)
[2022-01-31] MEDS: ONDANSETRON 4 MG/2 ML INJ IV PRN (23:39)
[2022-02-01] MEDS: INSULIN REGULAR, HUMAN 100 UNITS/1 ML SUB-Q SCH ×4 (08:08→21:23)
--- NOTE | 2022-02-01 09:10 | Progress Note ---
Assessment and Plan Assessment and plan: #Acute metabolic encephalopathyresolved #Acute ischemic CVA #Seizure disorder #Brain lesion CT head noncontrast revealing "a low attenuation lesion with hyperdensity around his present centered near the head of caudate nucleus on the right. This produces mild mass-effect with compression of the adjacent frontal horn of the right lateral ventricle. Small amount of increased attenuation matter at the posterior inferior margin of the lesion may represent calcification or small amount of hemorrhage. Considerations include brain neoplasia and abscess. Further evaluation with MRI brain to be performed without and with intravenous contrast material is advised." MRI brain with contrast: subacute infarct in R caudate TTE reveals EF 50-55% with normal-sized LV, normal LV systolic function, mild concentric LVH, mild diastolic dysfunction, and unremarkable for PFO. continue Keppra 750 mg every 12 hours. Physical therapy and Occupational Therapy consulted; recommending HH with PT Continue aspirin 81 mg daily , Plavix 75mg daily and atorvastatin 40mg daily per stroke protocol. Hemoglobin A1c 13.2. Lipid profile: Triglycerides 43, cholesterol 139, LDL 68, HDL 75 #Closed fracture of left proximal humerus Continue to closely monitor as patient can follow-up with orthopedic surgery in outpatient setting. #Hypertension - home medications: None - current medications: Losartan 100 mg daily, Coreg 12.5 mg p.o. daily - SBP goal <160 and DBP goal <90 while inpatient - continue to monitor #Non-insulin dependent type II diabetes mellitus with hyperglycemia - hemoglobin A1c: 13.2 - home regimen: Metformin 500 mg twice daily - current regimen: Moderate SSI +Lantus 10 qhs + metformin 1000 mg twice daily - blood glucose goal 140-180 while inpatient - continue to monitor #Acute kidney injury -SCr 2.3, baseline -avoid nephrotoxins and renally dose medications -recently started losartan at home dose -will start IVFs, if no improvement in SCr we will discontinue losartan #Iron deficiency anemia last Hgb, will repeat CBC tomorrow Iron 20, TIBC 154, ferritin 170. Ordered IV Ferrlecit 125 x1 (01/25/2022) Transfuse if hemoglobin <7 or patient becomes symptomatic. #Mild protein caloric malnutrition Albumin 3.1 Continue dietary supplementation #Obesity #Weight loss counseling #Exercise counseling - BMI 33.2 - Counseled patient on the importance of weight loss, incorporating exercise, and dietary changes (lean meats, fresh fruits and vegetables, and water intake). Patient expresses understanding. - Time: +15 min #Advanced care planning -Disease education conducted, care plan discussed, diagnoses discussed, prognosis discussed, and patient acknowledges understanding with care plan -Time: +30 min #Discharge planning - patient family members opted for [facility] placement - Case management has been made aware. History Interval history: Patient was seen and evaluated this morning No nursing issues reported overnight Patient said no change, still has weakness of the left upper extremity. Hospitalist Physical - Physical exam Narrative exam: Not in cardiopulmonary distress. The patient appeared well nourished and normally developed. Vital signs as documented. Head exam is unremarkable. No scleral icterus . Neck is without jugular venous distension, thyromegaly, or carotid bruits. Lungs are clear to auscultation. Cardiac exam reveals regular rate and Rhythm. Abdominal exam reveals normal bowel sounds, nontender, no organomegaly. Extremities are nonedematous and both femoral and pedal pulses are normal. DECAL CUTTER: Cooperative, follow commands. Left upper extremity weakness. - Constitutional Vitals: Temp Pulse Resp BP Pulse Ox 98.4 F 79 18 150/74 97 01/31/22 20:49 02/01/22 04:12 01/31/22 20:49 02/01/22 04:12 02/01/22 04:12 General appearance: Present: no acute distress, well-nourished, obese, other (Mi ld dysphagia) HEART Score - HEART Score Troponin: Troponin T 0.020 ng/mL (0.00-0.029) 01/22/22 19:28 Results - Labs CBC & Chem 7: 01/31/22 04:54 01/31/22 04:54 Labs: Laboratory Last Values WBC 6.3 K/mm3 (4.5-11.0) 01/31/22 04:54 RBC 3.54 M/mm3 (3.65-5.03) L 01/31/22 04:54 Hgb 8.9 gm/dl (10.1-14.3) L 01/31/22 04:54 Hct 28.2 % (30.3-42.9) L 01/31/22 04:54 MCV 80 fl (79-97) 01/31/22 04:54 MCH 25 pg (28-32) L 01/31/22 04:54 MCHC 32 % (30-34) 01/31/22 04:54 RDW 15.2 % (13.2-15.2) 01/31/22 04:54 Plt Count 418 K/mm3 (140-440) 01/31/22 04:54 Lymph % (Auto) 15.0 % (13.4-35.0) 01/24/22 04:36 [place] % (Auto) 10.8 % (0.0-7.3) H 01/24/22 04:36 Eos % (Auto) 1.3 % (0.0-4.3) 01/24/22 04:36 Baso % (Auto) 0.4 % (0.0-1.8) 01/24/22 04:36 Lymph # (Auto) 1.6 K/mm3 (1.2-5.4) 01/24/22 04:36 [place] # (Auto) 1.2 K/mm3 (0.0-0.8) H 01/24/22 04:36 Eos # (Auto) 0.1 K/mm3 (0.0-0.4) 01/24/22 04:36 Baso # (Auto) 0.0 K/mm3 (0.0-0.1) 01/24/22 04:36 Seg Neutrophils % 72.5 % (40.0-70.0) H 01/24/22 04:36 Seg Neutrophils # 7.8 K/mm3 (1.8-7.7) H 01/24/22 04:36 PT 12.4 Sec. (12.2-14.9) 01/22/22 19:28 INR 0.84 (0.87-1.13) L 01/22/22 19:28 APTT 26.4 Sec. (24.2-36.6) 01/22/22 19:28 VBG pH 7.398 (7.320-7.420) 01/22/22 19:28 Sodium 136 mmol/L (137-145) L 01/31/22 04:54 Potassium 4.8 mmol/L (3.6-5.0) 01/31/22 04:54 Chloride 101.4 mmol/L (98-107) 01/31/22 04:54 Carbon Dioxide 25 mmol/L (22-30) 01/31/22 04:54 Anion Gap 14 mmol/L 01/31/22 04:54 BUN 38 mg/dL (7-17) H 01/31/22 04:54 Creatinine 2.3 mg/dL (0.6-1.2) H 01/31/22 04:54 Estimated GFR 26 ml/min 01/31/22 04:54 BUN/Creatinine Ratio 17 % 01/31/22 04:54 Glucose 143 mg/dL (65-100) H 01/31/22 04:54 POC Glucose 116 mg/dL (70-105) H 02/01/22 07:06 Hemoglobin A1c 13.2 % (4-6) H 01/24/22 04:36 Calcium 8.6 mg/dL (8.4-10.2) 01/31/22 04:54 Magnesium 1.40 mg/dL (1.7-2.3) L 01/22/22 19:28 Iron 20 ug/dL (37-170) L 01/24/22 04:36 TIBC 154 mcg/dL (250-450) L 01/24/22 04:36 Ferritin 169.9 ng/mL (10.0-200.0) 01/24/22 04:36 Total Bilirubin 0.30 mg/dL (0.1-1.2) 01/22/22 19:28 AST 15 units/L (5-40) 01/22/22 19:28 ALT 14 units/L (7-56) 01/22/22 19:28 Alkaline Phosphatase 197 units/L (35-129) H 01/22/22 19:28 Ammonia 17.0 umol/L (25-60) L 01/22/22 19:28 Total Creatine Kinase 109 units/L (30-135) 01/22/22 19:28 CK-MB (CK-2) 4.9 ng/mL (0.0-4.0) H 01/22/22 19:28 CK-MB (CK-2) Rel Index 4.4 (0-4) H 01/22/22 19:28 Troponin T 0.020 ng/mL (0.00-0.029) 01/22/22 19:28 Total Protein 7.4 g/dL (6.3-8.2) 01/22/22 19:28 Albumin 3.1 g/dL (3.9-5) L 01/22/22 19:28 Albumin/Globulin Ratio 0.7 % 01/22/22 19:28 Triglycerides 43 mg/dL (2-149) 01/23/22 04:26 Cholesterol 139 mg/dL (50-199) 01/23/22 04:26 LDL Cholesterol Direct 68 mg/dL (50-130) 01/23/22 04:26 HDL Cholesterol 75 mg/dL (40-59) H 01/23/22 04:26 Cholesterol/HDL Ratio 1.85 % 01/23/22 04:26 TSH 1.110 mlU/mL (0.270-4.200) 01/24/22 04:36 Free T4 1.32 ng/dL (0.76-1.46) 01/22/22 19:28 Salicylates < 0.3 mg/dL (2.8-20.0) L 01/22/22 19:28 Plasma/Serum Alcohol < 0.01 % (0-0.07) 01/22/22 19:28 Blood Type O POSITIVE 01/22/22 19:28 Antibody Screen Negative 01/22/22 19:28 [place]/IV: Voiding Method Incontinent Active Medications - Current Medications Current Medications: Generic Name Dose Route Start Last Admin Trade Name Freq PRN Reason Stop Dose Admin Acetaminophen 650 mg 01/22/22 23:54 01/25/22 21:41 Acetaminophen 325 Mg Tab PO 650 mg Q4H PRN Administration Pain MILD(1-3)/Fever >100.5/VANEGAS Albuterol 2.5 mg 01/22/22 23:54 Albuterol 2.5 Mg/3 Ml Nebu IH Q3HRT PRN Shortness Of Breath Aspirin 81 mg 01/24/22 10:00 01/31/22 10:14 Aspirin 81 Mg Tab Chew PO 81 mg QDAY FABIO Administration Atorvastatin Calcium 40 mg 01/23/22 22:00 01/31/22 21:15 Atorvastatin 40 Mg Tab PO 40 mg QHS FABIO Administration Carvedilol 12.5 mg 01/25/22 10:00 01/31/22 21:18 Carvedilol 12.5 Mg Tab PO Not Given BID FABIO Dextrose 50 ml 01/25/22 14:00 01/28/22 01:12 Dextrose 50% In Water (25gm) 50 Ml Syringe IV 50 ml Q30MIN PRN Administration Hypoglycemia Protocol Famotidine 20 mg 01/26/22 22:00 01/31/22 21:17 Famotidine 20 Mg Tab PO 20 mg BID FABIO Administration Sodium Chloride 1,000 mls @ 75 mls/hr 01/31/22 09:00 01/31/22 10:13 Nacl 0.9% 1000 Ml IV 75 mls/hr DIRECT FABIO Administration Insulin Glargine 10 units 01/28/22 22:00 01/31/22 21:17 Insulin Glargine 100 Units/Ml SUB-Q 10 units QHS FABIO Administration Insulin Human Regular 0 units 01/25/22 16:30 02/01/22 08:08 Insulin Regular, Human 100 Units/1 Ml SUB-Q Not Given ACHS FABIO Protocol Levetiracetam 750 mg 01/26/22 10:00 01/31/22 21:16 Levetiracetam 500 Mg Tab PO 750 mg BID FABIO Administration Losartan Potassium 25 mg 01/29/22 10:00 01/31/22 10:15 Losartan 25 Mg Tab PO 25 mg QDAY FABIO Administration Morphine Sulfate 2 mg 01/22/22 23:54 01/30/22 04:16 Morphine 2 Mg/1 Ml Inj IV 2 mg Q4H PRN Administration Pain, Moderate (4-6) Morphine Sulfate 4 mg 01/22/22 23:54 01/31/22 23:39 Morphine 4 Mg/1 Ml Inj IV 4 mg Q4H PRN Administration Pain , Severe (7-10) Ondansetron HCl 4 mg 01/22/22 23:54 01/31/22 23:39 Ondansetron 4 Mg/2 Ml Inj IV 4 mg Q8H PRN Administration Nausea And Vomiting Sodium Chloride 10 ml 01/23/22 10:00 01/31/22 21:18 Sodium Chloride 0.9% 10 Ml Flush Syringe IV 10 ml BID FABIO Administration Sodium Chloride 10 ml 01/22/22 23:54 Sodium Chloride 0.9% 10 Ml Flush Syringe IV PRN PRN LINE FLUSH Nutrition/Malnutrition Assess - Dietary Evaluation Nutrition/Malnutrition Findings: Nutrition Notes Start: 01/23/22 14:57 Freq: Status: Active Protocol: Document 01/30/22 11:06 SUJATHA (Rec: 01/30/22 11:31 SUJATHA [id number]) Nutrition Notes Initial or Follow up Assessment Current Diagnosis Decubitus(Pressure Ulcer), Hypertension,Stroke Other Pertinent Diagnosis Seizure, Brain Lesion, L- Humerus Fracture, Anemia. Current Diet Regular Diet (since D 01/29). Labs/Tests 01/30: N/A. Pertinent Medications 01/30: Lantus 10U, others nutritionally unremarkable. Height 5 ft Weight 73.2 kg [place] Body Weight (kg) 45.45 BMI 31.5 Weight change and time frame 4 Kg body weight loss in 1 week reported. Weight Status Obese Subjective/Other Information RD consult for routine F/U on dietary advancement. Pt's PO intake of meals has been Good (100%) and well tolerated, according to ADL notes. Pt is on Room Air, O2 saturation @ 100%, according to Physical Assessment History notes. Pt has missing teeth, according to Physical Assessment History notes. Pt is incontinent, according to Physical Assessment History notes. Pt is awaiting for MRI prior to discharge plans, according to Progress notes. Percent of energy/protein needs met: Prescribed Regular Diet provides for energy/protein needs (2,289 Kcal/89 g) during LOS. Burn Absent Trauma Present GI Symptoms Other Food Allergy No Skin Integrity/Comment Assessment WNL. Current % PO Good (75-100%) Minimum of two criteria No Fluid Accumulation N/A Reduced Amf Mechanic Strength N/A (non-severe) Protein-Calorie Malnutrition N\\A #1 Nutrition Diagnosis No nutrition diagnosis at this time Is patient on ventilator? No Is Patient Ambulatory and/or Out of Bed Yes REE-([facility]-ambulatory/OOB) [ 1610.050 NUTR.[id number]] Kcal/Kg value to use for calculation 15 Approximate Energy Requirements Using 1098 kcal/Kg Calculation Used for Recommendations Kcal/kg Additional Notes Protein: 0.8-1 g/Kg AdjBW; 47- 59 g/day. Fluids: 1 ml/Kcal, or as per MD. Nutrition Intervention Change Diet Order: Continue Regular Diet. Follow-Up By: 02/06/22 Additional Comments Continue monitoring food tolerance, %PO intake of meals , and BM.
[2022-02-01] MEDS: FAMOTIDINE 20 MG TAB PO SCH ×2 (10:39→21:22)
[2022-02-01] MEDS: ASPIRIN 81 MG TAB CHEW PO SCH (10:39)
[2022-02-01] MEDS: LOSARTAN 25 MG TAB PO SCH (10:39)
[2022-02-01] MEDS: levETIRAcetam 500 MG TAB PO SCH ×2 (10:39→21:22)
[2022-02-01] MEDS: carvediloL 12.5 MG TAB PO SCH ×2 (10:39→21:23)
[2022-02-01] MEDS: INSULIN GLARGINE 100 UNITS/ML SUB-Q SCH (21:24)
[2022-02-01] MEDS: MORPHINE 4 MG/1 ML INJ IV PRN (21:54)
[2022-02-02] MEDS: MORPHINE 4 MG/1 ML INJ IV PRN (05:25)
[2022-02-02] MEDS: INSULIN REGULAR, HUMAN 100 UNITS/1 ML SUB-Q SCH ×4 (07:30→22:07)
--- NOTE | 2022-02-02 08:07 | Progress Note ---
Assessment and Plan Assessment and plan: #Acute metabolic encephalopathyresolved #Acute ischemic CVA #Seizure disorder #Brain lesion CT head noncontrast revealing "a low attenuation lesion with hyperdensity around his present centered near the head of caudate nucleus on the right. This produces mild mass-effect with compression of the adjacent frontal horn of the right lateral ventricle. Small amount of increased attenuation matter at the posterior inferior margin of the lesion may represent calcification or small amount of hemorrhage. Considerations include brain neoplasia and abscess. Further evaluation with MRI brain to be performed without and with intravenous contrast material is advised." MRI brain with contrast: subacute infarct in R caudate TTE reveals EF 50-55% with normal-sized LV, normal LV systolic function, mild concentric LVH, mild diastolic dysfunction, and unremarkable for PFO. continue Keppra 750 mg every 12 hours. Physical therapy and Occupational Therapy consulted; recommending HH with PT Continue aspirin 81 mg daily , Plavix 75mg daily and atorvastatin 40mg daily per stroke protocol. Hemoglobin A1c 13.2. Lipid profile: Triglycerides 43, cholesterol 139, LDL 68, HDL 75 #Closed fracture of left proximal humerus Continue to closely monitor as patient can follow-up with orthopedic surgery in outpatient setting. #Hypertension - home medications: None - current medications: Losartan 100 mg daily, Coreg 12.5 mg p.o. daily - SBP goal <160 and DBP goal <90 while inpatient - continue to monitor #Non-insulin dependent type II diabetes mellitus with hyperglycemia - hemoglobin A1c: 13.2 - home regimen: Metformin 500 mg twice daily - current regimen: Moderate SSI +Lantus 10 qhs + metformin 1000 mg twice daily - blood glucose goal 140-180 while inpatient - continue to monitor #Acute kidney injury -SCr 2.3, baseline -avoid nephrotoxins and renally dose medications -recently started losartan at home dose -will start IVFs, if no improvement in SCr we will discontinue losartan #Iron deficiency anemia last Hgb, will repeat CBC tomorrow Iron 20, TIBC 154, ferritin 170. Ordered IV Ferrlecit 125 x1 (01/25/2022) Transfuse if hemoglobin <7 or patient becomes symptomatic. #Mild protein caloric malnutrition Albumin 3.1 Continue dietary supplementation #Obesity #Weight loss counseling #Exercise counseling - BMI 33.2 - Counseled patient on the importance of weight loss, incorporating exercise, and dietary changes (lean meats, fresh fruits and vegetables, and water intake). Patient expresses understanding. - Time: +15 min #Advanced care planning -Disease education conducted, care plan discussed, diagnoses discussed, prognosis discussed, and patient acknowledges understanding with care plan -Time: +30 min #Discharge planning - patient family members opted for [facility] placement - Case management has been made aware. History Interval history: Patient was seen and evaluated this morning No nursing issues reported overnight Patient said no change, still has weakness of the left upper extremity. Hospitalist Physical - Physical exam Narrative exam: Not in cardiopulmonary distress. The patient appeared well nourished and normally developed. Vital signs as documented. Head exam is unremarkable. No scleral icterus . Neck is without jugular venous distension, thyromegaly, or carotid bruits. Lungs are clear to auscultation. Cardiac exam reveals regular rate and Rhythm. Abdominal exam reveals normal bowel sounds, nontender, no organomegaly. Extremities are nonedematous and both femoral and pedal pulses are normal. 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 Left upper extremity weakness. - Constitutional Vitals: Temp Pulse Resp BP Pulse Ox 97.9 F 75 20 153/77 98 02/02/22 05:04 02/02/22 05:07 02/02/22 05:04 02/02/22 05:04 02/02/22 05:07 General appearance: Present: no acute distress, well-nourished, obese, other (Mi ld dysphagia) HEART Score - HEART Score Troponin: Troponin T 0.020 ng/mL (0.00-0.029) 01/22/22 19:28 Results - Labs CBC & Chem 7: 01/31/22 04:54 01/31/22 04:54 Labs: Laboratory Last Values WBC 6.3 K/mm3 (4.5-11.0) 01/31/22 04:54 RBC 3.54 M/mm3 (3.65-5.03) L 01/31/22 04:54 Hgb 8.9 gm/dl (10.1-14.3) L 01/31/22 04:54 Hct 28.2 % (30.3-42.9) L 01/31/22 04:54 MCV 80 fl (79-97) 01/31/22 04:54 MCH 25 pg (28-32) L 01/31/22 04:54 MCHC 32 % (30-34) 01/31/22 04:54 RDW 15.2 % (13.2-15.2) 01/31/22 04:54 Plt Count 418 K/mm3 (140-440) 01/31/22 04:54 Lymph % (Auto) 15.0 % (13.4-35.0) 01/24/22 04:36 [place] % (Auto) 10.8 % (0.0-7.3) H 01/24/22 04:36 Eos % (Auto) 1.3 % (0.0-4.3) 01/24/22 04:36 Baso % (Auto) 0.4 % (0.0-1.8) 01/24/22 04:36 Lymph # (Auto) 1.6 K/mm3 (1.2-5.4) 01/24/22 04:36 [place] # (Auto) 1.2 K/mm3 (0.0-0.8) H 01/24/22 04:36 Eos # (Auto) 0.1 K/mm3 (0.0-0.4) 01/24/22 04:36 Baso # (Auto) 0.0 K/mm3 (0.0-0.1) 01/24/22 04:36 Seg Neutrophils % 72.5 % (40.0-70.0) H 01/24/22 04:36 Seg Neutrophils # 7.8 K/mm3 (1.8-7.7) H 01/24/22 04:36 PT 12.4 Sec. (12.2-14.9) 01/22/22 19:28 INR 0.84 (0.87-1.13) L 01/22/22 19:28 APTT 26.4 Sec. (24.2-36.6) 01/22/22 19:28 VBG pH 7.398 (7.320-7.420) 01/22/22 19:28 Sodium 136 mmol/L (137-145) L 01/31/22 04:54 Potassium 4.8 mmol/L (3.6-5.0) 01/31/22 04:54 Chloride 101.4 mmol/L (98-107) 01/31/22 04:54 Carbon Dioxide 25 mmol/L (22-30) 01/31/22 04:54 Anion Gap 14 mmol/L 01/31/22 04:54 BUN 38 mg/dL (7-17) H 01/31/22 04:54 Creatinine 2.3 mg/dL (0.6-1.2) H 01/31/22 04:54 Estimated GFR 26 ml/min 01/31/22 04:54 BUN/Creatinine Ratio 17 % 01/31/22 04:54 Glucose 143 mg/dL (65-100) H 01/31/22 04:54 POC Glucose 81 mg/dL (70-105) 02/02/22 07:13 Hemoglobin A1c 13.2 % (4-6) H 01/24/22 04:36 Calcium 8.6 mg/dL (8.4-10.2) 01/31/22 04:54 Magnesium 1.40 mg/dL (1.7-2.3) L 01/22/22 19:28 Iron 20 ug/dL (37-170) L 01/24/22 04:36 TIBC 154 mcg/dL (250-450) L 01/24/22 04:36 Ferritin 169.9 ng/mL (10.0-200.0) 01/24/22 04:36 Total Bilirubin 0.30 mg/dL (0.1-1.2) 01/22/22 19:28 AST 15 units/L (5-40) 01/22/22 19:28 ALT 14 units/L (7-56) 01/22/22 19:28 Alkaline Phosphatase 197 units/L (35-129) H 01/22/22 19:28 Ammonia 17.0 umol/L (25-60) L 01/22/22 19:28 Total Creatine Kinase 109 units/L (30-135) 01/22/22 19:28 CK-MB (CK-2) 4.9 ng/mL (0.0-4.0) H 01/22/22 19:28 CK-MB (CK-2) Rel Index 4.4 (0-4) H 01/22/22 19:28 Troponin T 0.020 ng/mL (0.00-0.029) 01/22/22 19:28 Total Protein 7.4 g/dL (6.3-8.2) 01/22/22 19:28 Albumin 3.1 g/dL (3.9-5) L 01/22/22 19:28 Albumin/Globulin Ratio 0.7 % 01/22/22 19:28 Triglycerides 43 mg/dL (2-149) 01/23/22 04:26 Cholesterol 139 mg/dL (50-199) 01/23/22 04:26 LDL Cholesterol Direct 68 mg/dL (50-130) 01/23/22 04:26 HDL Cholesterol 75 mg/dL (40-59) H 01/23/22 04:26 Cholesterol/HDL Ratio 1.85 % 01/23/22 04:26 TSH 1.110 mlU/mL (0.270-4.200) 01/24/22 04:36 Free T4 1.32 ng/dL (0.76-1.46) 01/22/22 19:28 Salicylates < 0.3 mg/dL (2.8-20.0) L 01/22/22 19:28 Plasma/Serum Alcohol < 0.01 % (0-0.07) 01/22/22 19:28 Blood Type O POSITIVE 01/22/22 19:28 Antibody Screen Negative 01/22/22 19:28 Chase/IV: Voiding Method Incontinent Active Medications - Current Medications Current Medications: Generic Name Dose Route Start Last Admin Trade Name Freq PRN Reason Stop Dose Admin Acetaminophen 650 mg 01/22/22 23:54 01/25/22 21:41 Acetaminophen 325 Mg Tab PO 650 mg Q4H PRN Administration Pain MILD(1-3)/Fever >100.5/VANEGAS Albuterol 2.5 mg 01/22/22 23:54 Albuterol 2.5 Mg/3 Ml Nebu IH Q3HRT PRN Shortness Of Breath Aspirin 81 mg 01/24/22 10:00 02/01/22 10:39 Aspirin 81 Mg Tab Chew PO 81 mg QDAY FABIO Administration Atorvastatin Calcium 40 mg 01/23/22 22:00 02/01/22 21:22 Atorvastatin 40 Mg Tab PO 40 mg QHS FABIO Administration Carvedilol 12.5 mg 01/25/22 10:00 02/01/22 21:23 Carvedilol 12.5 Mg Tab PO 12.5 mg BID FABIO Administration Dextrose 50 ml 01/25/22 14:00 01/28/22 01:12 Dextrose 50% In Water (25gm) 50 Ml Syringe IV 50 ml Q30MIN PRN Administration Hypoglycemia Protocol Famotidine 20 mg 01/26/22 22:00 02/01/22 21:22 Famotidine 20 Mg Tab PO 20 mg BID FABIO Administration Sodium Chloride 1,000 mls @ 75 mls/hr 01/31/22 09:00 01/31/22 10:13 Nacl 0.9% 1000 Ml IV 75 mls/hr DIRECT FABIO Administration Insulin Glargine 10 units 01/28/22 22:00 02/01/22 21:24 Insulin Glargine 100 Units/Ml SUB-Q 10 units QHS FABIO Administration Insulin Human Regular 0 units 01/25/22 16:30 02/01/22 21:23 Insulin Regular, Human 100 Units/1 Ml SUB-Q 4 units ACHS FABIO Administration Protocol Levetiracetam 750 mg 01/26/22 10:00 02/01/22 21:22 Levetiracetam 500 Mg Tab PO 750 mg BID FABIO Administration Losartan Potassium 25 mg 01/29/22 10:00 02/01/22 10:39 Losartan 25 Mg Tab PO 25 mg QDAY FABIO Administration Morphine Sulfate 2 mg 01/22/22 23:54 01/30/22 04:16 Morphine 2 Mg/1 Ml Inj IV 2 mg Q4H PRN Administration Pain, Moderate (4-6) Morphine Sulfate 4 mg 01/22/22 23:54 02/02/22 05:25 Morphine 4 Mg/1 Ml Inj IV 4 mg Q4H PRN Administration Pain , Severe (7-10) Ondansetron HCl 4 mg 01/22/22 23:54 01/31/22 23:39 Ondansetron 4 Mg/2 Ml Inj IV 4 mg Q8H PRN Administration Nausea And Vomiting Sodium Chloride 10 ml 01/23/22 10:00 02/01/22 21:22 Sodium Chloride 0.9% 10 Ml Flush Syringe IV 10 ml BID FABIO Administration Sodium Chloride 10 ml 01/22/22 23:54 Sodium Chloride 0.9% 10 Ml Flush Syringe IV PRN PRN LINE FLUSH Nutrition/Malnutrition Assess - Dietary Evaluation Nutrition/Malnutrition Findings: Nutrition Notes Start: 01/23/22 14:57 Freq: Status: Active Protocol: Document 01/30/22 11:06 SUJATHA (Rec: 01/30/22 11:31 SUJATHA [id number]) Nutrition Notes Initial or Follow up Assessment Current Diagnosis Decubitus(Pressure Ulcer), Hypertension,Stroke Other Pertinent Diagnosis Seizure, Brain Lesion, L- Humerus Fracture, Anemia. Current Diet Regular Diet (since D 01/29). Labs/Tests 01/30: N/A. Pertinent Medications 01/30: Lantus 10U, others nutritionally unremarkable. Height 5 ft Weight 73.2 kg [place] Body Weight (kg) 45.45 BMI 31.5 Weight change and time frame 4 Kg body weight loss in 1 week reported. Weight Status Obese Subjective/Other Information RD consult for routine F/U on dietary advancement. Pt's PO intake of meals has been Good (100%) and well tolerated, according to ADL notes. Pt is on Room Air, O2 saturation @ 100%, according to Physical Assessment History notes. Pt has missing teeth, according to Physical Assessment History notes. Pt is incontinent, according to Physical Assessment History notes. Pt is awaiting for MRI prior to discharge plans, according to Progress notes. Percent of energy/protein needs met: Prescribed Regular Diet provides for energy/protein needs (2,289 Kcal/89 g) during LOS. Burn Absent Trauma Present GI Symptoms Other Food Allergy No Skin Integrity/Comment Assessment WNL. 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 No Is Patient Ambulatory and/or Out of Bed Yes REE-([place]-ambulatory/OOB) [ 1610.050 NUTR.[email or web address]] Kcal/Kg value to use for calculation 15 Approximate Energy Requirements Using 1098 kcal/Kg Calculation Used for Recommendations Kcal/kg Additional Notes Protein: 0.8-1 g/Kg AdjBW; 47- 59 g/day. Fluids: 1 ml/Kcal, or as per MD. Nutrition Intervention Change Diet Order: Continue Regular Diet. Follow-Up By: 02/06/22 Additional Comments Continue monitoring food tolerance, %PO intake of meals , and BM.
[2022-02-02] MEDS: levETIRAcetam 500 MG TAB PO SCH ×2 (10:05→22:06)
[2022-02-02] MEDS: carvediloL 12.5 MG TAB PO SCH ×2 (10:05→22:07)
[2022-02-02] MEDS: ASPIRIN 81 MG TAB CHEW PO SCH (10:05)
[2022-02-02] MEDS: FAMOTIDINE 20 MG TAB PO SCH (10:05)
[2022-02-02] MEDS: LOSARTAN 25 MG TAB PO SCH (10:06)
[2022-02-02] MEDS: MORPHINE 2 MG/1 ML INJ IV PRN ×3 (10:06→22:09)
[2022-02-02 19:41] LABS: Calcium 8.4 mg/dL (8.4-10.2)
[2022-02-02] MEDS: FAMOTIDINE 10 MG TAB PO SCH (22:07)
[2022-02-02] MEDS: INSULIN GLARGINE 100 UNITS/ML SUB-Q SCH (22:08)
[2022-02-02] MEDS ORDERED: diazePAM 10 MG/2 ML SYRINGE IV ONE (23:39)
[2022-02-03] MEDS ORDERED: diazePAM 10 MG/2 ML SYRINGE IV ONE (01:21)
[2022-02-03] MEDS ORDERED: hydrALAZINE 20 MG/1 ML INJ IV ONE (02:41)
[2022-02-03] MEDS: INSULIN REGULAR, HUMAN 100 UNITS/1 ML SUB-Q SCH ×4 (08:26→23:11)
[2022-02-03] MEDS ORDERED: ACETAMINOPHEN 500 MG TAB PO ONE (09:17)
[2022-02-03] MEDS: levETIRAcetam 500 MG TAB PO SCH ×2 (11:16→22:53)
[2022-02-03] MEDS: carvediloL 12.5 MG TAB PO SCH ×2 (11:16→22:53)
[2022-02-03] MEDS: LOSARTAN 25 MG TAB PO SCH (11:16)
[2022-02-03] MEDS: ASPIRIN 81 MG TAB CHEW PO SCH (11:16)
[2022-02-03] MEDS: FAMOTIDINE 10 MG TAB PO SCH ×2 (11:16→22:53)
--- NOTE | 2022-02-03 13:51 | Progress Note ---
Assessment and Plan Assessment and plan: #Acute metabolic encephalopathyresolved #Acute ischemic CVA #Seizure disorder #Brain lesion CT head noncontrast revealing "a low attenuation lesion with hyperdensity around his present centered near the head of caudate nucleus on the right. This produces mild mass-effect with compression of the adjacent frontal horn of the right lateral ventricle. Small amount of increased attenuation matter at the posterior inferior margin of the lesion may represent calcification or small amount of hemorrhage. Considerations include brain neoplasia and abscess. Further evaluation with MRI brain to be performed without and with intravenous contrast material is advised." MRI brain with contrast: subacute infarct in R caudate TTE reveals EF 50-55% with normal-sized LV, normal LV systolic function, mild concentric LVH, mild diastolic dysfunction, and unremarkable for PFO. continue Keppra 750 mg every 12 hours. Physical therapy and Occupational Therapy consulted; recommending HH with PT Continue aspirin 81 mg daily , Plavix 75mg daily and atorvastatin 40mg daily per stroke protocol. Hemoglobin A1c 13.2. Lipid profile: Triglycerides 43, cholesterol 139, LDL 68, HDL 75 #Closed fracture of left proximal humerus Continue to closely monitor as patient can follow-up with orthopedic surgery in outpatient setting. #Hypertension - home medications: None - current medications: Losartan 100 mg daily, Coreg 12.5 mg p.o. daily - SBP goal <160 and DBP goal <90 while inpatient - continue to monitor #Non-insulin dependent type II diabetes mellitus with hyperglycemia - hemoglobin A1c: 13.2 - home regimen: Metformin 500 mg twice daily - current regimen: Moderate SSI +Lantus 10 qhs + metformin 1000 mg twice daily - blood glucose goal 140-180 while inpatient - continue to monitor #Acute kidney injury -SCr 2.3, baseline -avoid nephrotoxins and renally dose medications -recently started losartan at home dose -will start IVFs, if no improvement in SCr we will discontinue losartan #Iron deficiency anemia last Hgb, will repeat CBC tomorrow Iron 20, TIBC 154, ferritin 170. Ordered IV Ferrlecit 125 x1 (01/25/2022) Transfuse if hemoglobin <7 or patient becomes symptomatic. #Mild protein caloric malnutrition Albumin 3.1 Continue dietary supplementation #Obesity #Weight loss counseling #Exercise counseling - BMI 33.2 - Counseled patient on the importance of weight loss, incorporating exercise, and dietary changes (lean meats, fresh fruits and vegetables, and water intake). Patient expresses understanding. - Time: +15 min #Advanced care planning -Disease education conducted, care plan discussed, diagnoses discussed, prognosis discussed, and patient acknowledges understanding with care plan -Time: +30 min #Discharge planning - patient family members opted for [facility] placement - Case management has been made aware. Disposition Plan: Pending possible discharge home tomorrow Total Time Spent with Patient (Minutes): 45 minutes History Interval history: No acute events overnight. Hospitalist Physical - Constitutional Vitals: Temp Pulse Resp BP Pulse Ox 97.1 F L 73 15 89/56 97 02/03/22 13:21 02/03/22 13:21 02/03/22 13:21 02/03/22 13:21 02/03/22 13:21 General appearance: Present: no acute distress, well-nourished, obese, other (Mild dysphagia) - EENT Eyes: Present: PERRL, EOM intact ENT: hearing intact, clear oral mucosa, poor dentition - Neck Neck: Present: supple, normal ROM - Respiratory Respiratory effort: normal Respiratory: bilateral: CTA - Cardiovascular Rhythm: regular Heart Sounds: Present: S1 & S2 - Extremities Extremities: no ischemia, pulses intact, pulses symmetrical, No edema, normal temperature, normal color Extremity abnormal: tenderness (Tenderness of left upper extremity secondary to closed fracture) Peripheral Pulses: within normal limits - Abdominal General gastrointestinal: soft, non-tender, non-distended, normal bowel sounds - Integumentary Integumentary: Present: clear, warm, dry - Psychiatric Psychiatric: depressed, other (Tearful on exam) - Neurologic Neurologic: CNII-XII intact - Allied Health Allied health notes reviewed: nursing HEART Score - HEART Score Troponin: Troponin T 0.020 ng/mL (0.00-0.029) 01/22/22 19:28 Results - Labs CBC & Chem 7: 01/31/22 04:54 02/02/22 18:51 Labs: Laboratory Last Values WBC 6.3 K/mm3 (4.5-11.0) 01/31/22 04:54 RBC 3.54 M/mm3 (3.65-5.03) L 01/31/22 04:54 Hgb 8.9 gm/dl (10.1-14.3) L 01/31/22 04:54 Hct 28.2 % (30.3-42.9) L 01/31/22 04:54 MCV 80 fl (79-97) 01/31/22 04:54 MCH 25 pg (28-32) L 01/31/22 04:54 MCHC 32 % (30-34) 01/31/22 04:54 RDW 15.2 % (13.2-15.2) 01/31/22 04:54 Plt Count 418 K/mm3 (140-440) 01/31/22 04:54 Lymph % (Auto) 15.0 % (13.4-35.0) 01/24/22 04:36 [place] % (Auto) 10.8 % (0.0-7.3) H 01/24/22 04:36 Eos % (Auto) 1.3 % (0.0-4.3) 01/24/22 04:36 Baso % (Auto) 0.4 % (0.0-1.8) 01/24/22 04:36 Lymph # (Auto) 1.6 K/mm3 (1.2-5.4) 01/24/22 04:36 [place] # (Auto) 1.2 K/mm3 (0.0-0.8) H 01/24/22 04:36 Eos # (Auto) 0.1 K/mm3 (0.0-0.4) 01/24/22 04:36 Baso # (Auto) 0.0 K/mm3 (0.0-0.1) 01/24/22 04:36 Seg Neutrophils % 72.5 % (40.0-70.0) H 01/24/22 04:36 Seg Neutrophils # 7.8 K/mm3 (1.8-7.7) H 01/24/22 04:36 PT 12.4 Sec. (12.2-14.9) 01/22/22 19:28 INR 0.84 (0.87-1.13) L 01/22/22 19:28 APTT 26.4 Sec. (24.2-36.6) 01/22/22 19:28 VBG pH 7.398 (7.320-7.420) 01/22/22 19:28 Sodium 139 mmol/L (137-145) 02/02/22 18:51 Potassium 4.6 mmol/L (3.6-5.0) 02/02/22 18:51 Chloride 102.6 mmol/L (98-107) 02/02/22 18:51 Carbon Dioxide 26 mmol/L (22-30) 02/02/22 18:51 Anion Gap 15 mmol/L 02/02/22 18:51 BUN 20 mg/dL (7-17) H 02/02/22 18:51 Creatinine 1.4 mg/dL (0.6-1.2) H 02/02/22 18:51 Estimated GFR 47 ml/min 02/02/22 18:51 BUN/Creatinine Ratio 14 % 02/02/22 18:51 Glucose 135 mg/dL (65-100) H 02/02/22 18:51 POC Glucose 244 mg/dL (70-105) H 02/03/22 11:36 Hemoglobin A1c 13.2 % (4-6) H 01/24/22 04:36 Calcium 8.4 mg/dL (8.4-10.2) 02/02/22 18:51 Magnesium 1.40 mg/dL (1.7-2.3) L 01/22/22 19:28 Iron 20 ug/dL (37-170) L 01/24/22 04:36 TIBC 154 mcg/dL (250-450) L 01/24/22 04:36 Ferritin 169.9 ng/mL (10.0-200.0) 01/24/22 04:36 Total Bilirubin 0.30 mg/dL (0.1-1.2) 01/22/22 19:28 AST 15 units/L (5-40) 01/22/22 19:28 ALT 14 units/L (7-56) 01/22/22 19:28 Alkaline Phosphatase 197 units/L (35-129) H 01/22/22 19:28 Ammonia 17.0 umol/L (25-60) L 01/22/22 19:28 Total Creatine Kinase 109 units/L (30-135) 01/22/22 19:28 CK-MB (CK-2) 4.9 ng/mL (0.0-4.0) H 01/22/22 19:28 CK-MB (CK-2) Rel Index 4.4 (0-4) H 01/22/22 19:28 Troponin T 0.020 ng/mL (0.00-0.029) 01/22/22 19:28 Total Protein 7.4 g/dL (6.3-8.2) 01/22/22 19:28 Albumin 3.1 g/dL (3.9-5) L 01/22/22 19:28 Albumin/Globulin Ratio 0.7 % 01/22/22 19:28 Triglycerides 43 mg/dL (2-149) 01/23/22 04:26 Cholesterol 139 mg/dL (50-199) 01/23/22 04:26 LDL Cholesterol Direct 68 mg/dL (50-130) 01/23/22 04:26 HDL Cholesterol 75 mg/dL (40-59) H 01/23/22 04:26 Cholesterol/HDL Ratio 1.85 % 01/23/22 04:26 TSH 1.110 mlU/mL (0.270-4.200) 01/24/22 04:36 Free T4 1.32 ng/dL (0.76-1.46) 01/22/22 19:28 Salicylates < 0.3 mg/dL (2.8-20.0) L 01/22/22 19:28 Plasma/Serum Alcohol < 0.01 % (0-0.07) 01/22/22 19:28 Blood Type O POSITIVE 01/22/22 19:28 Antibody Screen Negative 01/22/22 19:28 [place]/IV: Voiding Method Incontinent Active Medications - Current Medications Current Medications: Generic Name Dose Route Start Last Admin Trade Name Freq PRN Reason Stop Dose Admin Acetaminophen 650 mg 01/22/22 23:54 01/25/22 21:41 Acetaminophen 325 Mg Tab PO 650 mg Q4H PRN Administration Pain MILD(1-3)/Fever >100.5/VANEGAS Albuterol 2.5 mg 01/22/22 23:54 Albuterol 2.5 Mg/3 Ml Nebu IH Q3HRT PRN Shortness Of Breath Aspirin 81 mg 01/24/22 10:00 02/03/22 11:16 Aspirin 81 Mg Tab Chew PO 81 mg QDAY FABIO Administration Atorvastatin Calcium 40 mg 01/23/22 22:00 02/02/22 22:06 Atorvastatin 40 Mg Tab PO 40 mg QHS FABIO Administration Carvedilol 12.5 mg 01/25/22 10:00 02/03/22 11:16 Carvedilol 12.5 Mg Tab PO 12.5 mg BID FABIO Administration Dextrose 50 ml 01/25/22 14:00 01/28/22 01:12 Dextrose 50% In Water (25gm) 50 Ml Syringe IV 50 ml Q30MIN PRN Administration Hypoglycemia Protocol Famotidine 10 mg 02/02/22 22:00 02/03/22 11:16 Famotidine 10 Mg Tab PO 10 mg BID FABIO Administration Insulin Glargine 10 units 01/28/22 22:00 02/02/22 22:08 Insulin Glargine 100 Units/Ml SUB-Q 10 units QHS FABIO Administration Insulin Human Regular 0 units 01/25/22 16:30 02/03/22 08:26 Insulin Regular, Human 100 Units/1 Ml SUB-Q Not Given ACHS FABIO Protocol Levetiracetam 750 mg 01/26/22 10:00 02/03/22 11:16 Levetiracetam 500 Mg Tab PO 750 mg BID FABIO Administration Losartan Potassium 25 mg 01/29/22 10:00 02/03/22 11:16 Losartan 25 Mg Tab PO 25 mg QDAY FABIO Administration Morphine Sulfate 2 mg 01/22/22 23:54 02/02/22 22:09 Morphine 2 Mg/1 Ml Inj IV 2 mg Q4H PRN Administration Pain, Moderate (4-6) Morphine Sulfate 4 mg 01/22/22 23:54 02/02/22 05:25 Morphine 4 Mg/1 Ml Inj IV 4 mg Q4H PRN Administration Pain , Severe (7-10) Ondansetron HCl 4 mg 01/22/22 23:54 01/31/22 23:39 Ondansetron 4 Mg/2 Ml Inj IV 4 mg Q8H PRN Administration Nausea And Vomiting Sodium Chloride 10 ml 01/23/22 10:00 02/03/22 11:19 Sodium Chloride 0.9% 10 Ml Flush Syringe IV Not Given BID FABIO Sodium Chloride 10 ml 01/22/22 23:54 Sodium Chloride 0.9% 10 Ml Flush Syringe IV PRN PRN LINE FLUSH Nutrition/Malnutrition Assess - Dietary Evaluation Nutrition/Malnutrition Findings: Nutrition Notes Start: 01/23/22 14:57 Freq: Status: Active Protocol: Document 01/30/22 11:06 SUJATHA (Rec: 01/30/22 11:31 SUJATHA [id number]) Nutrition Notes Initial or Follow up Assessment Current Diagnosis Decubitus(Pressure Ulcer), Hypertension,Stroke Other Pertinent Diagnosis Seizure, Brain Lesion, L- Humerus Fracture, Anemia. Current Diet Regular Diet (since D 01/29). Labs/Tests 01/30: N/A. Pertinent Medications 01/30: Lantus 10U, others nutritionally unremarkable. Height 5 ft Weight 73.2 kg [place] Body Weight (kg) 45.45 BMI 31.5 Weight change and time frame 4 Kg body weight loss in 1 week reported. Weight Status Obese Subjective/Other Information RD consult for routine F/U on dietary advancement. Pt's PO intake of meals has been Good (100%) and well tolerated, according to ADL notes. Pt is on Room Air, O2 saturation @ 100%, according to Physical Assessment History notes. Pt has missing teeth, according to Physical Assessment History notes. Pt is incontinent, according to Physical Assessment History notes. Pt is awaiting for MRI prior to discharge plans, according to Progress notes. Percent of energy/protein needs met: Prescribed Regular Diet provides for energy/protein needs (2,289 Kcal/89 g) during LOS. Burn Absent Trauma Present GI Symptoms Other Food Allergy No Skin Integrity/Comment Assessment WNL. 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 No Is Patient Ambulatory and/or Out of Bed Yes REE-([facility]-ambulatory/OOB) [ 1610.050 [id number]] Kcal/Kg value to use for calculation 15 Approximate Energy Requirements Using 1098 kcal/Kg Calculation Used for Recommendations Kcal/kg Additional Notes Protein: 0.8-1 g/Kg AdjBW; 47- 59 g/day. Fluids: 1 ml/Kcal, or as per MD. Nutrition Intervention Change Diet Order: Continue Regular Diet. Follow-Up By: 02/06/22 Additional Comments Continue monitoring food tolerance, %PO intake of meals , and BM.
[2022-02-03] MEDS: MORPHINE 4 MG/1 ML INJ IV PRN (22:54)
[2022-02-03] MEDS: INSULIN GLARGINE 100 UNITS/ML SUB-Q SCH (23:10)
[2022-02-04] MEDS: MORPHINE 2 MG/1 ML INJ IV PRN ×2 (07:31→22:44)
[2022-02-04] MEDS: INSULIN REGULAR, HUMAN 100 UNITS/1 ML SUB-Q SCH ×4 (08:35→21:19)
[2022-02-04] MEDS: levETIRAcetam 500 MG TAB PO SCH ×2 (09:00→21:18)
[2022-02-04] MEDS: ASPIRIN 81 MG TAB CHEW PO SCH (09:00)
[2022-02-04] MEDS: LOSARTAN 25 MG TAB PO SCH (09:00)
[2022-02-04] MEDS: carvediloL 12.5 MG TAB PO SCH ×2 (09:00→21:24)
[2022-02-04] MEDS: FAMOTIDINE 10 MG TAB PO SCH ×2 (09:00→21:21)
--- NOTE | 2022-02-04 13:37 | Discharge Summary ---
Providers - Providers Date of Admission: 01/22/22 23:54 Date of discharge: 02/04/22 Attending physician: LUCIANA VERONICA MD 01/22/22 21:54 Consult to Physician [CONS] Urgent Comment: Consulting Provider: ANATOLY ROSARIO II Physician Instructions: Reason For Exam: new brain lesion, ams seizure 01/22/22 23:54 Consult to Physician [CONS] Routine Comment: Consulting Provider: SOMMER DEVLIN Physician Instructions: Reason For Exam: Brain lesion 01/22/22 23:56 Consult to Dietitian/Nutrition [CONS] Routine Physician Instructions: Reason For Exam: Reason for Consult: Diet education Occupational Therapy Evaluate and Treat [CONS] Routine Comment: Reason For Exam: Neuro deficits Physical Therapy Evaluation and Treat [CONS] Routine Comment: Reason For Exam: Neuro deficits 01/23/22 21:02 Speech Therapy Evaluation and Treat [CONS] Routine Reason For Exam: Dysphagia after stroke Primary care physician: [employer] Hospitalization Reason for admission: Acute metabolic encephalopathy, acute ischemic CVA, seizure disorder Condition: Stable Pertinent studies: Reviewed. Procedures: None. Hospital course: Patient is a 56-year-old female past medical history uncontrolled hypertension and mtq-rbzrhqf-nhwesewnv type 2 diabetes mellitus who presented to the ED after being found disoriented and altered while being assisted to the bathroom by her daughter. The patient has a recent history of a left arm fracture that occurred at work. EMS transferred the patient to the ED. On presentation, the patient had a witnessed seizure by staff there required IV Ativan 2 mg x 1. Patient on presentation was found to be tachycardic to 120s and hypertensive at 190/100. Patient underwent CT head noncontrast (01/22/2022) revealing "a low attenuation lesion with hyperdense area surrounding near the head of the caudate nucleus on the right. This produces mild mass-effect with compression of the adjacent frontal horn of the right lateral ventricle. Small amount of increased attenuation material at the posterior inferior margin of the lesion may represent calcification or small amount of hemorrhage. Considerations include brain neoplasia and abscess. Further evaluation with MRI brain to be performed without and with IV contrast material is advised.". Neurosurgery was consulted immediately, and attempts were made to transfer the patient to an outside facility; however, no bed availability was present. Patient was admitted to the floor for further management. Patient was able to successfully obtain MRI brain without contrast that revealed "subacute infarct involving the right caudate". Attempts to get the MRI brain with contrast were unsuccessful x3 due to patient's significant agitation despite numerous attempts at sedation. Neurology was consulted for further management, and it was found that the patient has a seizure disorder that was not being treated (patient endorsed prior seizure disorder and was not adherent with medication). Patient was then started on Keppra 750 mg twice daily. Neurosurgery officially signed off. Patient underwent TTE revealing an EF 50-55% but was relatively unremarkable without any evidence of PFO. CT angio head and neck were also unremarkable. Patient was evaluated by physical therapy, Occupational Therapy, and speech therapy. Physical therapy recommended "if family assistance available 02/02, then home health with PT. Otherwise, subacute rehab would be appropriate." Occupational Therapy recommended subacute rehab. Speech therapy recommended pured diet initially but it has since been transitioned to a regular diet. Patient has been counseled at length about the importance of medication compliance and following up with her primary care provider and neurology. Patient and her family expressed understanding. Patient is medically clear for discharge. Disposition: 01 HOME / SELF CARE / HOMELESS Final Discharge Diagnosis (Prints w/discharge instructions): Acute ischemic CVA, acute metabolic encephalopathy, seizure disorder, closed fracture of left proximal humerus, hypertension, noninsulin-dependent type 2 diabetes mellitus with hyperglycemia, acute kidney injury, iron deficiency anemia, mild protein caloric malnutrition, obesity. Time spent for discharge: 45 min Core Measure Documentation - Palliative Care Palliative Care/ Comfort Measures: Not Applicable - Core Measures Any of the following diagnoses?: stroke - Stroke Discharge Requirements Statin for LDL = or >70 mg/dl on DC: Yes Anticoag for atrial fib/atrial flutter: Not Applicable Reason for no anticoag for AF/F on DC: Not Indicated Antithrombotic for ischemic stroke: No Reason for no antithrombotic on DC: Not Indicated Exam - Constitutional Vitals: Temp Pulse Resp BP Pulse Ox 98.1 F 72 18 136/63 99 02/04/22 11:58 02/04/22 11:58 02/04/22 11:58 02/04/22 11:58 02/04/22 11:58 General appearance: Present: no acute distress, obese, disheveled - EENT Eyes: Present: PERRL, EOM intact ENT: hearing intact, clear oral mucosa - Neck Neck: Present: supple, normal ROM - Respiratory Respiratory effort: normal Respiratory: bilateral: CTA - Cardiovascular Rhythm: regular Heart Sounds: Present: S1 & S2 - Extremities Extremities: no ischemia, pulses intact, pulses symmetrical, No edema, normal temperature, normal color Extremity abnormal: deformity (Left fracture of humerus ), tenderness Peripheral Pulses: within normal limits - Abdominal General gastrointestinal: Present: soft, non-tender, non-distended, normal bowel sounds Female genitourinary: Present: deferred - Rectal Rectal Exam: deferred - Integumentary Integumentary: Present: clear, warm, dry - Musculoskeletal Musculoskeletal: left sided weakness - Psychiatric Psychiatric: agitated - Neurologic Neurologic: CNII-XII intact - Allied Health Allied health notes reviewed: nursing Plan Diet: low salt, diabetic Additional Instructions: Patient is a 56-year-old female past medical history u ncontrolled hypertension and otc-olzfigv-jwaozbdet type 2 diabetes mellitus who presented to the ED after being found disoriented and altered while being assisted to the bathroom by her daughter. The patient has a recent history of a left arm fracture that occurred at work. EMS transferred the patient to the ED. On presentation, the patient had a witnessed seizure by staff there required IV Ativan 2 mg x 1. Patient on presentation was found to be tachycardic to 120s and hypertensive at 190/100. Patient underwent CT head noncontrast (01/22/2022) revealing "a low attenuation lesion with hyperdense area surrounding near the head of the caudate nucleus on the right. This produces mild mass- effect with compression of the adjacent frontal horn of the right lateral ventricle. Small amount of increased attenuation material at the posterior inferior margin of the lesion may represent calcification or small amount of hemorrhage. Considerations include brain neoplasia and abscess. Further evaluation with MRI brain to be performed without and with IV contrast material is advised.". Neurosurgery was consulted immediately, and attempts were made to transfer the patient to an outside facility; however, no bed availability was present. Patient was admitted to the floor for further management. Patient was able to successfully obtain MRI brain without contrast that revealed "subacute infarct involving the right caudate". Attempts to get the MRI brain with contrast were unsuccessful x3 due to patient's significant agitation despite numerous attempts at sedation. Neurology was consulted for further management, and it was found that the patient has a seizure disorder that was not being treated (patient endorsed prior seizure disorder and was not adherent with medication). Patient was then started on Keppra 750 mg twice daily. Neurosurgery officially signed off. Patient underwent TTE revealing an EF 50- 55% but was relatively unremarkable without any evidence of PFO. CT angio head and neck were also unremarkable. Patient was evaluated by physical therapy, Occupational Therapy, and speech therapy. Physical therapy recommended "if family assistance available 02/02, then home health with PT. Otherwise, subacute rehab would be appropriate." Occupational Therapy recommended subacute rehab. Speech therapy recommended pured diet initially but it has since been transi tioned to a regular diet. Patient has been counseled at length about the importance of medication compliance and following up with her primary care provider and neurology. Patient and her family expressed understanding. Patient is medically clear for discharge. Care Plan Goals: Please start taking all medications as prescribed. Follow-up with your primary care provider within 1 week. Your diabetes is currently uncontrolled. Your hemoglobin A1c was 13%. You need to continue to take metformin and you have prescribed for you a second oral medication called glipizide. Please follow closely with your primary care provider as you may need insulin in the near future. Please follow-up with physical therapy. You have had a seizure and we do not recommend that you drive or operate machinery until after you have been cleared by your PCP. You have a fracture of your left leg. It does not require surgical intervention at this time, but please follow-up with a orthopedic surgeon outpatient. We have provided information for an associated orthopedic surgeon, however you can request your PCP to refer you to 1. Assessment: Patient is a 56-year-old female past medical history uncontrolled hypertension and zad-twrnfrk-eikwvjhir type 2 diabetes mellitus who presented to the ED after being found disoriented and altered while being assisted to the bathroom by her daughter. The patient has a recent history of a left arm fracture that occurred at work. EMS transferred the patient to the ED. On presentation, the patient had a witnessed seizure by staff there required IV Ativan 2 mg x 1. Patient on presentation was found to be tachycardic to 120s and hypertensive at 190/100. Patient underwent CT head noncontrast (01/22/2022) revealing "a low attenuation lesion with hyperdense area surrounding near the head of the caudate nucleus on the right. This produces mild mass-effect with compression of the adjacent frontal horn of the right lateral ventricle. Small amount of increased attenuation material at the posterior inferior margin of the lesion may represent calcification or small amount of hemorrhage. Considerations include brain neoplasia and abscess. Further evaluation with MRI brain to be performed without and with IV contrast material is advised.". Neurosurgery was consulted immediately, and attempts were made to transfer the patient to an outside facility; however, no bed availability was present. Patient was admitted to the floor for further management. Patient was able to successfully obtain MRI brain without contrast that revealed "subacute infarct involving the right caudate". Attempts to get the MRI brain with contrast were unsuccessful x3 due to patient's significant agitation despite numerous attempts at sedation. Neurology was consulted for further management, and it was found that the patient has a seizure disorder that was not being treated (patient endorsed prior seizure disorder and was not adherent with medication). Patient was then started on Keppra 750 mg twice daily. Neurosurgery officially signed off. Patient underwent TTE revealing an EF 50-55% but was relatively unremarkable without any evidence of PFO. CT angio head and neck were also unremarkable. Patient was evaluated by physical therapy, Occupational Therapy, and speech therapy. Physical therapy recommended "if family assistance available 02/02, then home health with PT. Otherwise, subacute rehab would be appropriate." Occupational Therapy recommended subacute rehab. Speech therapy recommended pured diet initially but it has since been transitioned to a regular diet. Patient has been counseled at length about the importance of medication compliance and following up with her primary care provider and neurology. Patient and her family expressed understanding. Patient is medically clear for discharge. Follow up with: PRIMARY MD JANEL [Primary Care Provider] - 3-5 Days MADHAV ESTRADA MD [Staff Physician] - 14 Days VIKAS BEDOLLA MD [Staff Physician] - 7 Days Prescriptions: AtorvaSTATin [Lipitor] 40 mg PO QHS 30 Days #30 tablet Aspirin [Aspirin BABY CHEW TAB] 81 mg PO QDAY 30 Days #30 tab.chew carvediloL [Coreg] 12.5 mg PO BID 30 Days #60 tablet glipiZIDE [Glucotrol] 5 mg PO BID 30 Days #60 tablet levETIRAcetam [Keppra TAB] 750 mg PO BID 30 Days #60 tab Metformin HCl [metFORMIN] 1,000 mg PO BID 30 Days #60 tab Other Discharge Orders: Glucometer (Amb) Location: None Selected Glucometer supplies[Amb] Location: None Selected
[2022-02-04] MEDS: MORPHINE 4 MG/1 ML INJ IV PRN (13:42)
[2022-02-04] MEDS: INSULIN GLARGINE 100 UNITS/ML SUB-Q SCH (21:19)
[2022-02-05] MEDS: ACETAMINOPHEN 325 MG TAB PO PRN ×2 (00:45→21:52)
[2022-02-05] MEDS: MORPHINE 4 MG/1 ML INJ IV PRN ×2 (03:11→07:49)
[2022-02-05] MEDS: INSULIN REGULAR, HUMAN 100 UNITS/1 ML SUB-Q SCH ×4 (07:58→21:00)
[2022-02-05] MEDS: FAMOTIDINE 10 MG TAB PO SCH ×2 (09:09→21:01)
[2022-02-05] MEDS: carvediloL 12.5 MG TAB PO SCH ×2 (09:09→21:01)
[2022-02-05] MEDS: ASPIRIN 81 MG TAB CHEW PO SCH (09:09)
[2022-02-05] MEDS: LOSARTAN 25 MG TAB PO SCH (09:10)
[2022-02-05] MEDS: levETIRAcetam 500 MG TAB PO SCH ×2 (09:10→21:01)
[2022-02-05] MEDS ORDERED: INSULIN GLARGINE 100 UNITS/ML SUB-Q SCH (22:00)
[2022-02-06] MEDS: ACETAMINOPHEN 325 MG TAB PO PRN (07:35)
[2022-02-06] MEDS: INSULIN REGULAR, HUMAN 100 UNITS/1 ML SUB-Q SCH (08:32)
[2022-02-06] MEDS: ASPIRIN 81 MG TAB CHEW PO SCH (10:31)
[2022-02-06] MEDS: FAMOTIDINE 10 MG TAB PO SCH (10:31)
[2022-02-06] MEDS: LOSARTAN 25 MG TAB PO SCH (10:31)
[2022-02-06] MEDS: carvediloL 12.5 MG TAB PO SCH (10:32)
[2022-02-06] MEDS: levETIRAcetam 500 MG TAB PO SCH (10:32)
[2022-02-06 12:37] VITALS: BP 147/76
== END 2022-02-06 17:07 | disposition home health service (06) | DRG 64 ==
LOC: ED 17:33 → 4A 23:54
PROVIDERS: ADMIT Hospitalist; ATTEND Student in an Organized Health Care Education/Training Program
DX: I63.9 Cerebral infarction, unspecified (principal); G93.41 Metabolic encephalopathy; S42.202A Unspecified fracture of upper end of left humerus, initial encounter for closed fracture; E44.1 Mild protein-calorie malnutrition; N17.9 Acute kidney failure, unspecified; E11.65 Type 2 diabetes mellitus with hyperglycemia; G40.909 Epilepsy, unspecified, not intractable, without status epilepticus; E66.9 Obesity, unspecified; D50.9 Iron deficiency anemia, unspecified; G93.9 Disorder of brain, unspecified; Y92.89 Other specified places as the place of occurrence of the external cause; Z68.33 Body mass index [BMI] 33.0-33.9, adult
CPT/HCPCS: 36415; 70450; 70496; 70498; 70551; 71045; 80048; 80053; 80061; 80320; 82140; 82550; 82553; 82728; 82805; 82962; 83036; 83550; 83735; 84439; 84443; 84484; 85025; 85027; 85610; 85730; 86850; 86900; 86901; 93005; 93306; 94640; G0378; J3490; J7060; Q0177; Q9967; C8929; G0480; J0360; J1815; J1953; J2060; J2270; J2405; J2916; J3360; J3475; J3486; J7030